=== PATIENT | female | born 1945 | race Caucasian/White ===

== ENCOUNTER 2017-05-17 12:55 | Inpatient (IN) | payer MEDICARE, BC ==
[~2017-05-17] VITALS: Ht 157.5 cm; Wt 55.0 kg
[~2017-05-17 12:55] MED LIST: ASPI81TA82 PO; BUSP5TAB3 PO; CELE200; CENTTAB9 PO; COLE625 PO; DULO20 PO; HYDR10TA16 PO; LEVO50TA4 PO; PLAV75TA PO; PROV100T3 PO; VITA400C59 CHEW; ZOCO40TA PO
[2017-05-17 13:12] VITALS: BP 141/67; PULSE 65; RESP 24; TEMP 97.8; O2SAT 100
--- NOTE | 2017-05-17 13:25 | PD ---
HPI Chief Complaint: Fall Time Seen by Provider: 13:21 Travel History International Travel<30 days: No Contact w/Intl Traveler<30days: No Traveled to known affect area: No History of Present Illness HPI 71-year-old female that presents to the ED for evaluation of fall. Per report from ED nurse as well as ambulance patient apparently had a fall yesterday on the toilet. Per patient she's been having diarrhea which has been a recurrent problem for the past couple of weeks. Per patient she was doing better but yesterday she started having the symptoms again. Per patient she fell from the toilet. She did not hit her head but did hit her right ribs. Per patient's report and ambulance report she crawled today and he took her 12 hours to get there so she can call the police or ambulance. She apparently is taking care of by her daughter but unfortunately from the reported the daughter was recently put in [place] [facility] and she has no one to take care of her. Per ambulance report she told him that she couldn't walk but apparently per ambulance report she go to the door and answered the door herself in no apparent distress. She states that the only pain she has is on the right ribs. Pain per patient is 7 out of 10. Does not radiate. Denies any back or neck pain. No headache. Denies losing consciousness. Denies taking any blood thinners. Patient does state that she still has the diarrhea. Per patient she was recently admitted to [facility] and was there for a week for the diarrhea. She denies any other medical issues. PFSH Past Medical History Autoimmune Disease: Yes (LUPUS) Anxiety: Yes Depression: Yes Cancer: Yes (SKIN) Cardiovascular Problems: Yes (CAD CARDIAC STENT) High Cholesterol: Yes Diabetes: No Diminished Hearing: No Endocrine: No Fibromyalgia: Yes Gastrointestinal Disorders: Yes (IRRITABLE BOWEL) GERD: Yes Genitourinary: No Headaches: Yes Hepatitis: Yes Hiatal Hernia: No Hypertension: Yes Immune Disorder: Yes (? LUPUS) Medical other: Yes (PAD, OPEN WOUND ON LEFT ANKLE) Musculoskeletal: Yes (DEGENERATIVE DISC DISEASE LUMBAR, CERVICAL STENOSIS) Neurologic: Yes (STROKE 2 YEARS AGO) Psychiatric: Yes (ANXIETY/DEPRESSION) Reproductive: No Respiratory: No Thyroid Disease: Yes Tetanus Vaccination: > 5 Years Influenza Vaccination: No Past Surgical History Abdominal Surgery: Yes (APPY) Appendectomy: Yes Body Medical Devices: CARDIAC STENT Cardiac Surgery: No Ear Surgery: No Endocrine Surgery: No Eye Surgery: Yes (CATARACT BLETRAN, CORNEA TRANSPLANTS BELTRAN) Genitourinary Surgery: Yes (CYSTECTOMY, HYSTERECTOMY) Hysterectomy: Yes Joint Replacement: No Oral Surgery: Yes (TONSILLECTOMY) Pacemaker: No Thoracic Surgery: No Tonsillectomy: Yes Social History Alcohol Use: No Tobacco Use: Yes (1PPD) Substance Use: No Allergies-Medications (Allergen,Severity, Reaction): Coded Allergies: diatrizoate meglumine (Unverified Adverse Reaction, Unknown, KIDNEY FUNCTION CHANGES, 05/17/17) gadobenic acid (Unverified Adverse Reaction, Unknown, KIDNEY FUNCTION CHANGES, 05/17/17) gadodiamide (Unverified Adverse Reaction, Unknown, KIDNEY FUNCTION CHANGES , 05/17/17) gadoteridol (Unverified Adverse Reaction, Unknown, KIDNEY FUNCTION CHANGES , 05/17/17) iodixanol (Unverified Adverse Reaction, Unknown, KIDNEY FUNCTION CHANGES, 05/17/17) iohexol (Unverified Adverse Reaction, Unknown, KIDNEY FUNCTION CHANGES, ) Reported Meds & Prescriptions Reported Meds & Active Scripts Active Review of Systems Except as stated in HPI: all other systems reviewed are Neg Physical Exam Narrative GENERAL: SKIN: Warm and dry. HEAD: Atraumatic. Normocephalic. EYES: Pupils equal and round 4 mms reactive to light and accomodation. No scleral icterus. No injection or drainage. ENT: No nasal bleeding or discharge. Mucous membranes pink and moist. Tongue is midline. No uvula deviation. NECK: Trachea midline. No JVD. CARDIOVASCULAR: Regular rate and rhythm. No murmurs, S3, S4. Does have some reproducible right-sided chest discomfort. RESPIRATORY: No accessory muscle use. Clear to auscultation. Breath sounds equal bilaterally. GASTROINTESTINAL: Abdomen soft, non-tender, nondistended. Hepatic and splenic margins not palpable. MUSCULOSKELETAL: Extremities without clubbing, cyanosis, or edema. No obvious deformities. Full range of motion of the upper and lower extremities bilaterally. 2+ pulses bilaterally. NEUROLOGICAL: Awake and alert. No obvious cranial nerve deficits. Motor grossly within normal limits. Five out of 5 muscle strength in the arms and legs. Normal speech. PSYCHIATRIC: Appropriate mood and affect; insight and judgment normal. Data Data Last Documented VS Vital Signs Date Time Temp Pulse Resp B/P (MAP) Pulse Ox O2 Delivery O2 Flow Rate FiO2 05/17/17 13:41 20 05/17/17 13:12 97.8 65 141/67 (91) 100 Orders Orders Electrocardiogram (05/17/17 13:09) Complete Blood Count With Diff (05/17/17 13:09) Comprehensive Metabolic Panel (05/17/17 13:09) Ckmb (Isoenzyme) Profile (05/17/17 13:09) Troponin I (05/17/17 13:09) Prothrombin Time / Inr (Pt) (05/17/17 13:09) Act Partial Throm Time (Ptt) (05/17/17 13:09) Blood Culture (05/17/17 13:09) Lipase (05/17/17 13:09) Urinalysis - C+S If Indicated (05/17/17 13:09) Cath For Specimen (05/17/17 13:09) Magnesium (Mg) (05/17/17 13:09) Thyroid Stimulating Hormone (05/17/17 13:09) Chest, Single Ap (05/17/17 13:09) Ct Brain W/O Iv Contrast(Rout) (05/17/17 13:09) Iv Access Insert/Monitor (05/17/17 13:09) Ecg Monitoring (05/17/17 13:09) Oximetry (05/17/17 13:09) Drug Screen, Random Urine (05/17/17 13:09) Lactic Acid Sepsis Protocol (05/17/17 13:15) Morphine Inj (Morphine Inj) (05/17/17 13:45) Ondansetron Inj (Zofran Inj) (05/17/17 13:45) Sodium Chlor 0.9% 1000 Ml Inj (Ns 1000 M (05/17/17 14:15) Sodium Chlor 0.9% 1000 Ml Inj (Ns 1000 M (05/17/17 14:01) Urine Culture (05/17/17 14:00) Metronidazole 500 Mg Inj (Flagyl 500 Mg (05/17/17 14:45) Admit Order (Ed Use Only) (05/17/17 15:29) Labs Laboratory Tests Test 05/17/17 13:20 05/17/17 14:00 White Blood Count 9.4 TH/MM3 Red Blood Count 5.35 MIL/MM3 Hemoglobin 12.5 GM/DL Hematocrit 40.6 % Mean Corpuscular Volume 75.9 FL Mean Corpuscular Hemoglobin 23.3 PG Mean Corpuscular Hemoglobin Concent 30.8 % Red Cell Distribution Width 23.4 % Platelet Count 257 TH/MM3 Mean Platelet Volume 7.5 FL Neutrophils (%) (Auto) 77.7 % Lymphocytes (%) (Auto) 9.1 % Monocytes (%) (Auto) 9.0 % Eosinophils (%) (Auto) 3.7 % Basophils (%) (Auto) 0.5 % Neutrophils # (Auto) 7.3 TH/MM3 Lymphocytes # (Auto) 0.9 TH/MM3 Monocytes # (Auto) 0.8 TH/MM3 Eosinophils # (Auto) 0.3 TH/MM3 Basophils # (Auto) 0.0 TH/MM3 CBC Comment DIFF FINAL Differential Comment Prothrombin Time 10.5 SEC Prothromb Time International Ratio 1.0 RATIO Activated Partial Thromboplast Time 24.0 SEC Blood Urea Nitrogen 36 MG/DL Creatinine 2.69 MG/DL Random Glucose 124 MG/DL Total Protein 7.8 GM/DL Albumin 4.0 GM/DL Calcium Level 9.6 MG/DL Magnesium Level 1.9 MG/DL Alkaline Phosphatase 78 U/L Aspartate Amino Transf (AST/SGOT) 16 U/L Alanine Aminotransferase (ALT/SGPT) 18 U/L Total Bilirubin 0.5 MG/DL Sodium Level 136 MEQ/L Potassium Level 5.4 MEQ/L Chloride Level 104 MEQ/L Carbon Dioxide Level 17.0 MEQ/L Anion Gap 15 MEQ/L Estimat Glomerular Filtration Rate 17 ML/MIN Lactic Acid Level 3.0 mmol/L Total Creatine Kinase 54 U/L Troponin I LESS THAN 0.02 NG/ML Lipase 147 U/L Thyroid Stimulating Hormone 3rd Gen 1.850 uIU/ML Urine Color YELLOW Urine Turbidity HAZY Urine pH 5.0 Urine Specific [place] 1.029 Urine Protein TRACE mg/dL Urine Glucose (UA) TRACE mg/dL Urine Ketones 10 mg/dL Urine Occult Blood NEG Urine Nitrite NEG Urine Bilirubin NEG Urine Urobilinogen 2.0 MG/DL Urine Leukocyte Esterase NEG Urine RBC 1 /hpf Urine WBC 1 /hpf Urine Squamous Epithelial Cells <1 /hpf Urine Bacteria RARE /hpf Urine Hyaline Casts 33 /lpf Urine Mucus FEW /lpf Microscopic Urinalysis Comment CATH-CULTURE IND [facility] Medical Decision Making Medical Screen Exam Complete: Yes Emergency Medical Condition: Yes Medical Record Reviewed: Yes Interpretation(s) CBC & BMP Diagram 05/17/17 13:20 Total Protein 7.8, Albumin 4.0, Calcium Level 9.6, Magnesium Level 1.9, Alkaline Phosphatase 78, Aspartate Amino Transf (AST/SGOT) 16, Alanine Aminotransferase (ALT/SGPT) 18, Total Bilirubin 0.5 Troponin and CK-MB negative. UA shows no sign of acute disease. EKG shows sinus rhythm with no sign of acute ischemia or arrhythmia read by me and attending. Last Impressions Head CT 05/17/17 1309 Signed Impressions: Service Date/Time: Wednesday, May 17, 2017 14:48 - CONCLUSION: 1. Senescent changes. 2. Complex right maxillary sinus disease. Right sphenoid sinus disease. 3. No acute intracranial abnormality. Clinton Walter MD Chest X-Ray 05/17/17 1309 Signed Impressions: Service Date/Time: Wednesday, May 17, 2017 13:35 - CONCLUSION: No acute cardiopulmonary abnormality is identified. Rosendo Pleitez MD Differential Diagnosis Fall versus inability take care of self versus chest pain versus ACS versus syncope versus dehydration versus rhabdomyolysis versus sepsis Narrative Course 71-year-old female that presents to the ED for evaluation of fall. Patient was properly examined and was found to have signs and symptoms consistent with fall. Patient apparently cannot take care of self and only caregiver is in [place] [facility]. Labs and imaging were ordered. Labs and imaging showed what appears to be acute kidney injury with lactic acidosis. I was able to get some records from the patient's previous hospitalization in [facility]. Patient's threatening and BUN at the time of release was BUN of 11 and 1.49 creatinine. Patient appears to have acute on chronic kidney disease. Likely from dehydration. Patient was given IV fluids here. Patient was started on Flagyl as per medical records patient has a history of colitis and is to be on prednisone as well as Flagyl for this. Patient states having diarrhea again. Imaging otherwise was unremarkable. Case was discussed in my attending who agrees with admission. Dr. Vines agreed to admission to her. Procedures EKG Prior to Arrival: No Diagnosis Primary Impression: Acute kidney injury Additional Impressions: Elevated lactic acid level Diarrhea Qualified Codes: R19.7 - Diarrhea, unspecified Admitting Information Admitting Physician Requests: Admit Alec Pacheco May 17, 2017 13:25
[2017-05-17 13:37] LABS: AUTOMATED NEUTROPHIL # 7.3 TH/MM3 (1.8-7.7); BASOPHIL % 0.5 % (0.0-2.0); EOSINOPHIL # 0.3 TH/MM3 (0-0.4); EOSINOPHIL % 3.7 % (0.0-4.0); HEMATOCRIT 40.6 % (35.0-46.0); HEMO FLAGS DIFF FINAL; LYMPH % 9.1 % (9.0-44.0); LYMPHOCYTE # 0.9 TH/MM3 (1.0-4.8); MEAN CELL VOLUME 75.9 FL (80.0-100.0); MEAN CORPUSCULAR HEMOGLOBIN 23.3 PG (27.0-34.0); MEAN CORPUSCULAR HGB CONC 30.8 % (32.0-36.0); NEUT % 77.7 % (16.0-70.0); PLATELET COUNT 257 TH/MM3 (150-450); RED BLOOD COUNT 5.35 MIL/MM3 (4.00-5.30); RED CELL DISTRIBUTION WIDTH 23.4 % (11.6-17.2); WHITE BLOOD COUNT 9.4 TH/MM3 (4.0-11.0)
--- NOTE | 2017-05-17 13:42 | RADRPT ---
EXAM DATE/TIME: 05/17/2017 13:35 [facility] COMPARISON: No previous studies available for comparison. INDICATIONS : Pain under right axillary from fall on handlebar. MEDICAL HISTORY : None. SURGICAL HISTORY : None. ENCOUNTER: Initial ACUITY: 1 day PAIN SCORE: 9/10 LOCATION: Right axillary. FINDINGS: Portable AP view of the chest demonstrates a normal-sized cardiac silhouette. No effusion, consolidat ion, or pneumothorax is visualized. Oblique linear opacity in the left upper lobe may represent subse gmental atelectasis or scar. The bones and soft tissues demonstrate no acute abnormality. There are i s a hardware in the left proximal humerus related to prior ORIF. CONCLUSION: No acute cardiopulmonary abnormality is identified. Rosendo Pleitez MD on May 17, 2017 at 13:39 Board Certified Radiologist. This report was verified electronically.
[2017-05-17] MEDS ORDERED: MORPHINE SULFATE 2 MG/ML INJ IV PUSH ONE (13:45)
[2017-05-17] MEDS ORDERED: ONDANSETRON HCL 4 MG/2 ML VIAL IV PUSH ONE (13:45)
[2017-05-17 13:49] LABS: PROTHROMBIN TIME - PATIENT 10.5 SEC (9.8-11.6)
[2017-05-17 13:53] LABS: ALT (GPT) 18 U/L (10-53)
[2017-05-17] MEDS ORDERED: SODIUM CHLOR 0.9% 1000 ML INJ 1,000 ML IV ONE ×2 (14:01→14:15)
[2017-05-17 14:12] LABS: BACTERIA, URINE RARE /hpf; BLOOD, URINE NEG (NEG); COMMENT (UR) CATH-CULTURE IND; CULTURE IF INDICATED CATH CULTURE IND; GLUCOSE,URINE TRACE mg/dL (NEG); HYALINE CAST, URINE 33 /lpf (RARE); KETONE, URINE 10 mg/dL (NEG); MUCUS URINE FEW /lpf (OCC); NITRITE,URINE NEG (NEG); SQUAMOUS EPITHELIAL CELL URINE <1 /hpf (0-5); URINE COLOR YELLOW (YELLW/STRAW)
[2017-05-17 14:30] LABS: ALKALINE PHOSPHATASE 78 U/L (45-117); ANION GAP 15 MEQ/L (5-15); AST (GOT) 16 U/L (15-37); BLOOD UREA NITROGEN 36 MG/DL (7-18); CHLORIDE 104 MEQ/L (98-107); GLOMERULAR FILTRATION RATE 17 ML/MIN (>89); MAGNESIUM 1.9 MG/DL (1.5-2.5); SODIUM (NA) 136 MEQ/L (136-145); TOTAL BILIRUBIN ADULT 0.5 MG/DL (0.2-1.0)
[2017-05-17 14:31] LABS: CREATINE KINASE 54 U/L (26-192); POTASSIUM 5.4 MEQ/L (3.5-5.1)
[2017-05-17] MEDS ORDERED: metroNIDAZOLE 500 MG INJ 100 ML IV ONE (14:45)
--- NOTE | 2017-05-17 15:17 | RADRPT ---
EXAM DATE/TIME: 05/17/2017 14:48 [facility] COMPARISON: No previous studies available for comparison. INDICATIONS : Fall. RADIATION DOSE: 32.37 CTDIvol (mGy) MEDICAL HISTORY : Cardiovascular disease. SURGICAL HISTORY : Hysterectomy. Appendectomy. ENCOUNTER: Initial ACUITY: 1 day PAIN SCALE: 0/10 LOCATION: cranial TECHNIQUE: Multiple contiguous axial images were obtained of the head. Using automated exposure control and adj ustment of the mA and/or kV according to patient size, radiation dose was kept as low as reasonably a chievable to obtain optimal diagnostic quality images. DICOM format image data is available electro nically for review and comparison. FINDINGS: CEREBRUM: Moderate cerebral volume loss. The ventricles are normal for degree of atrophy. No evidence of midli ne shift, mass lesion, hemorrhage or acute infarction. No extra-axial fluid collections are seen. POSTERIOR FOSSA: The cerebellum and brainstem are intact. The 4th ventricle is midline. The cerebellopontine angle i s unremarkable. EXTRACRANIAL: The visualized portion of the orbits is intact. Somewhat dense material in the right maxillary sinus without evidence for wall thickening or erosion. Smaller fluid in the right sphenoid sinus. SKULL: The calvaria is intact. No evidence of skull fracture. CONCLUSION: 1. Senescent changes. 2. Complex right maxillary sinus disease. Right sphenoid sinus disease. 3. No acute intracranial abnormality. Clinton Walter MD on May 17, 2017 at 15:13 Board Certified Radiologist. This report was verified electronically.
[2017-05-17 15:29] LABS: LACTIC ACID GHOST NOT REPORTABLE
[2017-05-17] MEDS ORDERED: NALOXONE HCL 0.4 MG/ML AMP IV PUSH PRN (15:30)
[2017-05-17] MEDS ORDERED: SODIUM CHLORIDE 0.9% FLUSH 10 ML FLUSH IV FLUSH PRN (15:30)
--- NOTE | 2017-05-17 15:30 | HHI.HP ---
[facility] Ram[facility] D.O. Admission Diagnosis acute renal injury, dehydration, diarrhea, fall, inability take care Diagnoses: Travel History International Travel<30 Days: No Contact w/Intl Traveler <30 Da: No Traveled to Known Affected Are: No History of Present Illness still having diarrhea was at for one week , got home about 1 week ago daughter was career center advisor and now she is gone last night should be on steroids tapering dose and has not taken it yesterday after going to bathroom she fell from it, nad was on floor 12 hrs then finally was able to get back to bed did not take meds then called 911 also c/o pain in chest, thinks she hits something when she fell off the toilet ems came to back door and it was open so that they can get through the screen for one week after discharge, no diarrhea- was on medicine sulfasalazine and prednisone only yesterday, the diarrhea started all over again at that time she had rectal bag and lost 2-3L of fecal fluids denies cdiff./ crohns or UC then- was just told it was just colitis gets hot flushes, no fever no vomiting or nausea since one week takes zofran at home though no blood in urien or stool no abdominal no chest pain no dizziness or syncope no pains that is new after the fall does have chronic back pain from spinal stenosis Review of Systems Except as stated in HPI: all other systems reviewed are Neg Past Family Social History Past Medical History hrn cad- stent- 2yrs ago takes plavix 37.5mg by Dr Karly Isaac hepatiits B - pt said it was treated was a heavy drinker at young age, havent drunk in 30yrs hx of UTIs CVA- 3 yrs ago , no residual hypothyroidism Summary of [facility] hospitalization course: April 21, 2017 to April 30, 2017 hospital stay collagenous colitis- at 04/21/17 hospital admission Positive occult blood stool. Negative blood cultures. Patient was treated with IV Flagyl and Cipro. Hemoglobin was 7.6. Status post 1 unit of PRBC. Escherichia coli UTI Past Surgical History coronary angiogram and stenting colonsocpy hysterectomy appendectomy tonsilectomy Allergies: Coded Allergies: diatrizoate meglumine (Unverified Adverse Reaction, Unknown, KIDNEY FUNCTION CHANGES, 05/17/17) gadobenic acid (Unverified Adverse Reaction, Unknown, KIDNEY FUNCTION CHANGES, 05/17/17) gadodiamide (Unverified Adverse Reaction, Unknown, KIDNEY FUNCTION CHANGES , 05/17/17) gadoteridol (Unverified Adverse Reaction, Unknown, KIDNEY FUNCTION CHANGES , 05/17/17) iodixanol (Unverified Adverse Reaction, Unknown, KIDNEY FUNCTION CHANGES, 05/17/17) iohexol (Unverified Adverse Reaction, Unknown, KIDNEY FUNCTION CHANGES, ) Family History mother- kidney failure, [place] sister- lupus brother- rheumatic fever Social History smoke cigarettes about 5 or 6 a day, or a pack a day before that used to drink heavily, quit 30yrs ago no drugs before or now usually lives with daughter, but now daughter is incacerated as of yesterday- Physical Exam Vital Signs Vital Signs Date Time Temp Pulse Resp B/P (MAP) Pulse Ox O2 Delivery O2 Flow Rate FiO2 05/17/17 13:41 20 05/17/17 13:12 97.8 65 24 141/67 (91) 100 Physical Exam GENERAL: This is an elderly lady, looks quite weak and frail. Poor skin turgor. SKIN: No rashes, ecchymoses or lesions. Cool and dry. HEAD: Atraumatic. Normocephalic. No temporal or scalp tenderness. EYES:No scleral icterus. No injection or drainage. ENT: Nose without bleeding, purulent drainage or septal hematoma.Airway patent. NECK: Trachea midline. No JVD CARDIOVASCULAR: Regular rate and rhythm without murmurs, gallops, or rubs. RESPIRATORY: Clear to auscultation. Breath sounds equal bilaterally. No wheezes , rales, or rhonchi. GASTROINTESTINAL: Abdomen soft, non-tender, nondistended. No guarding. MUSCULOSKELETAL: Extremities without clubbing, cyanosis, or edema. . No calf tenderness. NEUROLOGICAL: Awake and alert. Motor and sensory grossly within normal limits Normal speech. Laboratory Laboratory Tests Test 05/17/17 13:20 05/17/17 14:00 White Blood Count 9.4 Red Blood Count 5.35 Hemoglobin 12.5 Hematocrit 40.6 Mean Corpuscular Volume 75.9 Mean Corpuscular Hemoglobin 23.3 Mean Corpuscular Hemoglobin Concent 30.8 Red Cell Distribution Width 23.4 Platelet Count 257 Mean Platelet Volume 7.5 Neutrophils (%) (Auto) 77.7 Lymphocytes (%) (Auto) 9.1 Monocytes (%) (Auto) 9.0 Eosinophils (%) (Auto) 3.7 Basophils (%) (Auto) 0.5 Neutrophils # (Auto) 7.3 Lymphocytes # (Auto) 0.9 Monocytes # (Auto) 0.8 Eosinophils # (Auto) 0.3 Basophils # (Auto) 0.0 CBC Comment DIFF FINAL Differential Comment Prothrombin Time 10.5 Prothromb Time International Ratio 1.0 Activated Partial Thromboplast Time 24.0 Blood Urea Nitrogen 36 Creatinine 2.69 Random Glucose 124 Total Protein 7.8 Albumin 4.0 Calcium Level 9.6 Magnesium Level 1.9 Alkaline Phosphatase 78 Aspartate Amino Transf (AST/SGOT) 16 Alanine Aminotransferase (ALT/SGPT) 18 Total Bilirubin 0.5 Sodium Level 136 Potassium Level 5.4 Chloride Level 104 Carbon Dioxide Level 17.0 Anion Gap 15 Estimat Glomerular Filtration Rate 17 Lactic Acid Level 3.0 Total Creatine Kinase 54 Troponin I LESS THAN 0.02 Lipase 147 Thyroid Stimulating Hormone 3rd Gen 1.850 Urine Color YELLOW Urine Turbidity HAZY Urine pH 5.0 Urine Specific [place] 1.029 Urine Protein TRACE Urine Glucose (UA) TRACE Urine Ketones 10 Urine Occult Blood NEG Urine Nitrite NEG Urine Bilirubin NEG Urine Urobilinogen 2.0 Urine Leukocyte Esterase NEG Urine RBC 1 Urine WBC 1 Urine Squamous Epithelial Cells <1 Urine Bacteria RARE Urine Hyaline Casts 33 Urine Mucus FEW Microscopic Urinalysis Comment CATH-CULTURE IND Date/Time Source Procedure Growth Status 05/17/17 13:20 Blood Peripheral Aerobic Blood Culture Pending Received 05/17/17 13:20 Blood Peripheral Anaerobic Blood Culture Pending Received 05/17/17 14:00 Urine Catheterized Urine Urine Culture Pending Received Result Diagram: 05/17/17 1320 05/17/17 1320 Imaging Last [address] 05/17/17 1309 Signed Impressions: Service Date/Time: Wednesday, May 17, 2017 14:48 - CONCLUSION: 1. Senescent changes. 2. Complex right maxillary sinus disease. Right sphenoid sinus disease. 3. No acute intracranial abnormality. Clinton Walter MD Chest X-Ray 05/17/17 1309 Signed Impressions: Service Date/Time: Wednesday, May 17, 2017 13:35 - CONCLUSION: No acute cardiopulmonary abnormality is identified. MD Maria A Caruso VTE Risk Assessment Maria A VTE Risk Assessment: Mod/High Risk (score >= 2) Caprini Risk Assessment Model Point Value = 1 Point Value = 2 Point Value = 3 Point Value = 5 Age 41-60 Minor surgery BMI > 25 kg/m2 Swollen legs Varicose veins or History of unexplained or recurrent spontaneous Oral contraceptives or hormone replacement Sepsis (< 1 month) Serious lung disease, including pneumonia (< 1 month) Abnormal pulmonary function Acute myocardial infarction Congestive heart failure (< 1 month) History of inflammatory bowel disease Medical patient at bed rest Age 61-74 Arthroscopic surgery Major open surgery (> 45 min) Laparoscopic surgery (> 45 min) Malignancy Confined to bed (> 72 hours) Immobilizing plaster cast Central venous access Age >= 75 History of VTE Family history of VTE Factor V Leiden Prothrombin [id number] Lupus anticoagulant Anticardiolipin antibodies Elevated serum homocysteine Heparin-induced thrombocytopenia Other congenital or acquired thrombophilia Stroke (< 1 month) Elective arthroplasty Hip, pelvis, or leg fracture Acute spinal cord injury (< 1 month) Prophylaxis Regimen Total Risk Factor Score Risk Level Prophylaxis Regimen 0-1 Low Early ambulation 2 Moderate Order ONE of the following: *Sequential Compression Device (SCD) *Heparin 5000 units SQ BID 3-4 Higher Order ONE of the following medications: *Heparin 5000 units SQ TID *Enoxaparin/Lovenox 40 mg SQ daily (WT < 150 kg, CrCl > 30 mL/min) *Enoxaparin/Lovenox 30 mg SQ daily (WT < 150 kg, CrCl > 10-29 mL/min) *Enoxaparin/Lovenox 30 mg SQ BID (WT < 150 kg, CrCl > 30 mL/min) AND/OR *Sequential Compression Device (SCD) 5 or more Highest Order ONE of the following medications: *Heparin 5000 units SQ TID (Preferred with Epidurals) *Enoxaparin/Lovenox 40 mg SQ daily (WT < 150 kg, CrCl > 30 mL/min) *Enoxaparin/Lovenox 30 mg SQ daily (WT < 150 kg, CrCl > 10-29 mL/min) *Enoxaparin/Lovenox 30 mg SQ BID (WT < 150 kg, CrCl > 30 mL/min) AND *Sequential Compression Device (SCD) Assessment and Plan Assessment and Plan Impression: Acute recurring colitis. In face of recently treated collagenous colitis at [facility]. Acute renal failure from dehydration Dehydration from fluid loss Lactic acid acidosis. Likely secondary to dehydration rather than sepsis. Recent Escherichia coli UTI with still positive UA at present. Plan: IV hydration with D5 half normal saline at 100 cc per hour. Start patient back on Solu-Medrol 40 mg IV every 6 hours Resume Cipro and Flagyl IV. Stool studies. GI consult. Sulfasalazine 500 mg by mouth every 8 hours. Orders have been written to update patient's med reconciliation. DVT prophylaxis with heparin. GI prophylaxis on ranitidine. Physician Certification Order for Inpatient Services The services are ordered in accordance with Medicare regulations or non- Medicare payer requirements, as applicable. In the case of services not specified as inpatient-only, they are appropriately provided as inpatient services in accordance with the 2-midnight benchmark. days is the estimated time the patient will need to remain in the hospital, assuming treatment plan goals are met and no additional complications. Duncan Vines MD May 17, 2017 15:30
[2017-05-17] MEDS ORDERED: RANITIDINE HCL SYRUP 150 MG/10 ML UDC PO ONE (16:15)
[2017-05-17] MEDS: DEXT 5%-NACL 0.45% 1000 ML INJ 1,000 ML IV SCH (16:57)
[2017-05-17] MEDS: metroNIDAZOLE 500 MG INJ 100 ML IV SCH ×2 (17:00→23:58)
[2017-05-17] MEDS: methylPREDNISolone SOD SUCC 40 MG/1 ML VIAL IV PUSH SCH ×2 (17:33→23:59)
[2017-05-17] MEDS: CIPROFLOXACIN 400 MG PREMIX 200 ML IV SCH (17:33)
[2017-05-17] MEDS: ACETAMINOPHEN/HYDROcodone 325 MG/5 MG TAB PO PRN ×2 (17:34→22:21)
[2017-05-17] MEDS: sulfaSALAzine EC 500 MG TABEC PO SCH ×2 (17:34→22:22)
[2017-05-17] MEDS: FAMOTIDINE 20 MG TAB PO SCH ×2 (17:34→20:34)
[2017-05-17 17:40] VITALS: BP 108/56; PULSE 83; RESP 16; TEMP 95.6; O2SAT 94
[2017-05-17] MEDS: CHOLESTYRAMINE 4 GM PACKET PO SCH ×2 (18:00→23:59)
[2017-05-17 20:00] VITALS: BP 114/80; PULSE 88; RESP 16; TEMP 97.7; O2SAT 97
[2017-05-17] MEDS: SODIUM CHLORIDE 0.9% FLUSH 10 ML FLUSH IV FLUSH SCH (20:36)
[2017-05-17] MEDS: HEPARIN SODIUM - SQ 10,000 UNITS/ML VIAL SQ SCH (22:19)
[2017-05-18] VITALS (7 sets, daily range): BP systolic 112–175; BP diastolic 53–82; PULSE 65–83; RESP 16–18; TEMP 96.6–98.1; O2SAT 94–100
[2017-05-18] MEDS: DEXT 5%-NACL 0.45% 1000 ML INJ 1,000 ML IV SCH ×3 (03:43→22:05)
[2017-05-18] MEDS: CIPROFLOXACIN 400 MG PREMIX 200 ML IV SCH ×2 (05:54→16:14)
[2017-05-18] MEDS: metroNIDAZOLE 500 MG INJ 100 ML IV SCH ×4 (05:54→22:05)
[2017-05-18] MEDS: CHOLESTYRAMINE 4 GM PACKET PO SCH ×3 (05:56→17:46)
[2017-05-18] MEDS: methylPREDNISolone SOD SUCC 40 MG/1 ML VIAL IV PUSH SCH ×3 (05:57→17:47)
[2017-05-18] MEDS: HEPARIN SODIUM - SQ 10,000 UNITS/ML VIAL SQ SCH ×2 (05:57→14:09)
[2017-05-18] MEDS: sulfaSALAzine EC 500 MG TABEC PO SCH ×3 (05:57→22:00)
[2017-05-18 07:17] LABS: AUTOMATED NEUTROPHIL # 4.5 TH/MM3 (1.8-7.7); EOSINOPHIL % 0.1 % (0.0-4.0); HEMATOCRIT 29.6 % (35.0-46.0); HEMO FLAGS DIFF FINAL; LYMPH % 7.5 % (9.0-44.0); LYMPHOCYTE # 0.4 TH/MM3 (1.0-4.8); MEAN CELL VOLUME 76.4 FL (80.0-100.0); MEAN CORPUSCULAR HEMOGLOBIN 23.5 PG (27.0-34.0); MEAN CORPUSCULAR HGB CONC 30.7 % (32.0-36.0); MONO % 3.3 % (0.0-8.0); NEUT % 89.1 % (16.0-70.0); PLATELET COUNT 133 TH/MM3 (150-450); RED BLOOD COUNT 3.88 MIL/MM3 (4.00-5.30); RED CELL DISTRIBUTION WIDTH 22.4 % (11.6-17.2)
[2017-05-18 07:39] LABS: ALKALINE PHOSPHATASE 58 U/L (45-117); ALT (GPT) 15 U/L (10-53); ANION GAP 8 MEQ/L (5-15); AST (GOT) 12 U/L (15-37); BICARBONATE 17.1 MEQ/L (21.0-32.0); BLOOD UREA NITROGEN 22 MG/DL (7-18); CHLORIDE 114 MEQ/L (98-107); GLOMERULAR FILTRATION RATE 35 ML/MIN (>89); POTASSIUM 5.1 MEQ/L (3.5-5.1); SODIUM (NA) 139 MEQ/L (136-145); TOTAL BILIRUBIN ADULT 0.2 MG/DL (0.2-1.0)
[2017-05-18] MEDS: SODIUM CHLORIDE 0.9% FLUSH 10 ML FLUSH IV FLUSH SCH ×2 (08:54→16:16)
[2017-05-18] MEDS: FAMOTIDINE 20 MG TAB PO SCH ×2 (08:54→22:09)
[2017-05-18] MEDS: ACETAMINOPHEN/HYDROcodone 325 MG/5 MG TAB PO PRN ×2 (08:57→17:56)
--- NOTE | 2017-05-18 09:03 | HHI.PR ---
Subjective Remarks Follow-up colitis, acute kidney injury, dehydration. The patient is reporting right-sided chest pain, worse with movement and deep breaths. She believes that she bruised her chest when she fell. No shortness of breath. No diarrhea since . Objective Vitals Vital Signs Date Time Temp Pulse Resp B/P (MAP) Pulse Ox O2 Delivery O2 Flow Rate FiO2 05/18/17 08:00 97.3 83 17 137/64 (88) 99 05/18/17 04:00 98.0 81 17 119/72 (88) 97 05/18/17 00:00 98.1 80 16 112/53 (72) 97 05/17/17 20:00 97.7 88 16 114/80 (91) 97 05/17/17 18:34 18 05/17/17 17:40 95.6 83 16 108/56 (73) 94 05/17/17 13:41 20 05/17/17 13:12 97.8 65 24 141/67 (91) 100 I/O 05/17/17 05/17/17 05/17/17 05/18/17 05/18/17 05/18/17 07:00 15:00 23:00 07:00 15:00 23:00 Intake Total 3309 ml 1500 ml Balance 3309 ml 1500 ml Intake Oral 480 ml 300 ml IV Total 2829 ml 1200 ml # Voids 1 Result Diagram: 05/18/17 0512 05/18/17 0512 Imaging Last Impressions Head CT 05/17/17 1309 Signed Impressions: Service Date/Time: Wednesday, May 17, 2017 14:48 - CONCLUSION: 1. Senescent changes. 2. Complex right maxillary sinus disease. Right sphenoid sinus disease. 3. No acute intracranial abnormality. Clinton Walter MD Chest X-Ray 05/17/17 1309 Signed Impressions: Service Date/Time: Wednesday, May 17, 2017 13:35 - CONCLUSION: No acute cardiopulmonary abnormality is identified. Rosendo Pleitez MD Objective Remarks General: Frail elderly female in no acute distress. Heart: Regular rate and rhythm. No murmur. Lungs: Clear to auscultation bilaterally. No wheezes, rales, or rhonchi. Breathing is nonlabored. Abdomen: Soft, nontender, nondistended. Positive bowel sounds. Extremities: No lower extremity edema. Psych: Alert and oriented. Procedures none Urinary Catheter: No Vascular Central Line Catheter: No A/P Assessment and Plan 1. Recurrent colitis: Patient recently treated for collagenous colitis [facility]. GI consult is pending. Continue Cipro, Flagyl. Diarrhea has improved. Continue sulfasalazine. 2. Acute renal failure, dehydration: Improving. Continue IV fluids. Monitor BUN and creatinine. 3. Lactic acidosis: Resolved. Likely secondary to dehydration. 4. UTI: Patient recently was diagnosed with a UTI secondary to Escherichia coli. Urinalysis is abnormal. Continue antibiotics. 5. Hypothyroidism: Restart patient's Synthroid. 6. Anxiety/depression: Restart Cymbalta. 7. GI prophylaxis: Ranitidine. 8. DVT prophylaxis: Heparin. 9. Anemia: Hemoglobin decreased possibly secondary to dilutional effect from IV fluids. Check stool Hemoccult. Monitor H&H. Isaac Spann MD May 18, 2017 09:03
[2017-05-18 10:17] LABS: HEMATOCRIT 33.9 % (35.0-46.0); REVIEW FLAG FINAL
--- NOTE | 2017-05-18 12:07 | EKG ---
Date Performed: 05/17/2017 Time Performed: 14:00:25 PTAGE: 71 years EKG: Right bundle branch block Atrial abnormality Compared to previous tracing, atrial abnormali ty is new, otherwise no significant change. BORDERLINE ECG PREVIOUS TRACING : 10/20/2015 07.59 DOCTOR: Callum Keating Interpretating Date/Time 05/18/2017 12:06:36
[2017-05-18] MEDS ORDERED: ONDANSETRON HCL 4 MG/2 ML VIAL IV PUSH PRN (14:15)
[2017-05-18] MEDS ORDERED: PILL SPLITTER OTHER PRN (14:45)
--- NOTE | 2017-05-18 15:21 | PD.CONS ---
HPI History of Present Illness This is a 71 year old female who presented to the ED by EMS after she called 911 after falling in bathroom and being stuck on the floor for 12 hours. She was going to the bathroom when she fell. She made it back to her bed after about 12 hours and then called 911. Patient was recently hospitalized at [facility] and was discharged about a week ago. She had Colonoscopy while at [facility] and was diagnosed with collagenous colitis, recurrent. She was put on steroid taper and Sulfasalazine. Patient reports she was not having diarrhea, until yesterday when the diarrhea started again. Reports C diff was negative at last hospitalization. Denies history of colitis. States she has had 2 other colonoscopies in the past and they showed polyps, otherwise normal. However, patient does report history of irritable bowel and states her primary care provider gives her a oral medication tablet that she takes as needed when she is having diarrhea. (Shaina Middleton) PFSH Past Medical History Hypertension CAD, stent 2 years ago Hepatitis B, s/p treatment per patient History of UTIs CVA, 3 years ago, no residual Hypothyroidism Summary of [facility] hospitalization course: April 21, 2017 to April 30, 2017 hospital stay Collagenous colitis- at 04/21/17 hospital admission Positive occult blood stool. Negative blood cultures. Patient was treated with IV Flagyl and Cipro. Hemoglobin was 7.6. Status post 1 unit of PRBC. Escherichia coli UTI Past Surgical History Coronary angiogram and stenting Colonoscopy Hysterectomy Appendectomy Tonsillectomy (Shaina Middleton) Coded Allergies: diatrizoate meglumine (Unverified Adverse Reaction, Unknown, KIDNEY FUNCTION CHANGES, 05/17/17) gadobenic acid (Unverified Adverse Reaction, Unknown, KIDNEY FUNCTION CHANGES, 05/17/17) gadodiamide (Unverified Adverse Reaction, Unknown, KIDNEY FUNCTION CHANGES , 05/17/17) gadoteridol (Unverified Adverse Reaction, Unknown, KIDNEY FUNCTION CHANGES , 05/17/17) iodixanol (Unverified Adverse Reaction, Unknown, KIDNEY FUNCTION CHANGES, 05/17/17) iohexol (Unverified Adverse Reaction, Unknown, KIDNEY FUNCTION CHANGES, ) Medications Current Medications Medications (Trade) Dose Ordered Sig/Hira Route PRN Reason Start Time Stop Time Status Last Admin Dose Admin Sodium Chloride (NS Flush) 2 ml UNSCH PRN IV FLUSH FLUSH AFTER USING IV ACCESS 05/17/17 15:30 Sodium Chloride (NS Flush) 2 ml BID IV FLUSH 05/17/17 21:00 05/18/17 08:54 Naloxone HCl (Narcan Inj) 0.4 mg UNSCH PRN IV PUSH SEE LABEL COMMENTS 05/17/17 15:30 Cholestyramine Resin (Questran 4 Gm Pkt) 4 gm Q6HR PO 05/17/17 18:00 05/18/17 11:12 Sulfasalazine (Azulfidine Ec) 500 mg Q8HR PO 05/17/17 16:15 05/18/17 14:09 Methylprednisolone Sodium Succinate (SoluMEDROL INJ) 40 mg Q6HR IV PUSH 05/17/17 18:00 05/18/17 11:12 Famotidine (Pepcid) 10 mg Q12HR PO 05/17/17 16:30 05/18/17 08:54 Dextrose/Sodium Chloride 1,000 ml @ 100 mls/hr Q10H IV 05/17/17 16:30 05/18/17 14:10 Ciprofloxacin/ Dextrose 200 ml @ 200 mls/hr Q12H IV 05/17/17 17:00 05/18/17 05:54 Metronidazole 100 ml @ 100 mls/hr Q6H IV 05/17/17 17:00 05/18/17 11:12 Heparin Sodium (Porcine) (Heparin Inj) 5,000 units Q8HR SQ 05/17/17 22:00 05/18/17 14:09 Duloxetine HCl (Cymbalta Dr) 60 mg BID PO 05/18/17 14:15 Clopidogrel Bisulfate (Plavix) 37.5 mg DAILY PO 05/19/17 09:00 Levothyroxine Sodium (Synthroid) 50 mcg DAILY@0600 PO 05/19/17 06:00 Pravastatin Sodium (Pravachol) 20 mg HS PO 05/18/17 21:00 Ondansetron HCl (Zofran Inj) 4 mg Q8HR PRN IV PUSH NAUSEA OR VOMITING 05/18/17 14:15 Aspirin (Ecotrin Ec) 81 mg DAILY PO 05/19/17 09:00 Acetaminophen/ Hydrocodone Bitart (Bucyrus 5-325 Mg) 1 tab Q4H PRN PO PAIN SCALE 4 TO 10 05/18/17 14:15 Miscellaneous (Pill Splitter) 1 ea UNSCH PRN OTHER SEE LABEL COMMENTS 05/18/17 14:45 Family History Mother, kidney failure, [place] Sister, lupus Brother, rheumatic fever Social History Tobacco, smokes cigarettes about 5-6 a day ETOH, history of heavy alcohol use, quit 30 years ago Illicit Drugs, denies (Shaina Middleton) Review of Systems Gastrointestinal: COMPLAINS OF: Abdominal pain, Diarrhea, Nausea, Vomiting, DENIES: Black stools, Bloody stools, Constipation, Difficulty Swallowing, Anorexia, Odynophagia, Swelling of Abdomen, Heartburn, Hematemesis (Shaina Middleton) GI Exam Vitals I&O Vital Signs Date Time Temp Pulse Resp B/P (MAP) Pulse Ox O2 Delivery O2 Flow Rate FiO2 05/18/17 12:00 97.3 77 17 151/68 (95) 94 05/18/17 12:00 96.6 65 18 141/82 (101) 100 05/18/17 08:00 97.3 83 17 137/64 (88) 99 05/18/17 04:00 98.0 81 17 119/72 (88) 97 05/18/17 00:00 98.1 80 16 112/53 (72) 97 05/17/17 20:00 97.7 88 16 114/80 (91) 97 05/17/17 18:34 18 05/17/17 17:40 95.6 83 16 108/56 (73) 94 I/O 05/17/17 05/17/17 05/17/17 05/18/17 05/18/17 05/18/17 07:00 15:00 23:00 07:00 15:00 23:00 Intake Total 3309 ml 1500 ml 620 ml Balance 3309 ml 1500 ml 620 ml Intake Oral 480 ml 300 ml 420 ml IV Total 2829 ml 1200 ml 200 ml # Voids 1 4 # Bowel Movements 0 Laboratory Test 05/17/17 16:50 05/18/17 05:12 05/18/17 10:00 Lactic Acid Level 1.9 mmol/L White Blood Count 5.0 TH/MM3 Red Blood Count 3.88 MIL/MM3 Hemoglobin 9.1 GM/DL 10.1 GM/DL Hematocrit 29.6 % 33.9 % Mean Corpuscular Volume 76.4 FL Mean Corpuscular Hemoglobin 23.5 PG Mean Corpuscular Hemoglobin Concent 30.7 % Red Cell Distribution Width 22.4 % Platelet Count 133 TH/MM3 Mean Platelet Volume 7.6 FL Neutrophils (%) (Auto) 89.1 % Lymphocytes (%) (Auto) 7.5 % Monocytes (%) (Auto) 3.3 % Eosinophils (%) (Auto) 0.1 % Basophils (%) (Auto) 0.0 % Neutrophils # (Auto) 4.5 TH/MM3 Lymphocytes # (Auto) 0.4 TH/MM3 Monocytes # (Auto) 0.2 TH/MM3 Eosinophils # (Auto) 0.0 TH/MM3 Basophils # (Auto) 0.0 TH/MM3 CBC Comment DIFF FINAL Differential Comment Blood Urea Nitrogen 22 MG/DL Creatinine 1.46 MG/DL Random Glucose 154 MG/DL Total Protein 5.6 GM/DL Albumin 2.8 GM/DL Calcium Level 8.4 MG/DL Alkaline Phosphatase 58 U/L Aspartate Amino Transf (AST/SGOT) 12 U/L Alanine Aminotransferase (ALT/SGPT) 15 U/L Total Bilirubin 0.2 MG/DL Sodium Level 139 MEQ/L Potassium Level 5.1 MEQ/L Chloride Level 114 MEQ/L Carbon Dioxide Level 17.1 MEQ/L Anion Gap 8 MEQ/L Estimat Glomerular Filtration Rate 35 ML/MIN Date/Time Source Procedure Growth Status 05/17/17 13:20 Blood Peripheral Aerobic Blood Culture - Preliminary NO GROWTH IN 1 DAY Resulted 05/17/17 13:20 Blood Peripheral Anaerobic Blood Culture - Preliminary NO GROWTH IN 1 DAY Resulted 05/17/17 14:00 Urine Catheterized Urine Urine Culture - Preliminary NO GROWTH IN 24 HOURS. Resulted Physical Examination HEENT: Pupils round and reactive to light; normocephalic; atraumatic; no jaundice. Throat is clear. NECK: Neck is supple, no JVD, no lymphadenopathy. CHEST: Chest is clear to auscultation and percussion. CARDIAC: Regular rate and rhythm with no murmur gallop or rubs. ABDOMEN: Soft, nondistended, nontender; no hepatosplenomegaly; bowel sounds are present in all four quadrants. EXTREMITIES: No clubbing, cyanosis, or edema. SKIN: Normal; no rash; no jaundice. VEHICLE TECHNICIAN: No focal deficits; alert and oriented times three. (Shaina Middleton) Assessment and Plan Plan ASSESSMENT - Collagenous Colitis, recurrent. Recent hospitalization at [facility] with Colonoscopy. Patient was discharged with steroid taper and Sulfasalazine. Reports diarrhea was improving with medicine and then the day before presenting to ED she started having increased diarrhea again. Had fall in the bathroom, while using toilet and was stuck on floor x 12 hours; then was able to get back to her bed where she called 911. Has had Colonoscopies in the past (x2) and reports these showed polyps and otherwise normal. Does have history of diarrhea and states her PCP gives her a medication for this to take as needed. No blood noted in stool. Has diffuse abdominal pain. Stool cultures ordered. - Nausea/vomiting. Decreased appetite. - Anemia. 10.1/33.9. Zofran PLAN - CATE - Continue Solu-Medrol - Continue Sulfasalazine - Await stool studies - Continue Zofran as needed - Monitor labs - Supportive care - Further recommendations to follow based on results of above Patient seen and examined by Dr. Robbins and myself and this note is written on his behalf. (Shaina Middleton) Physician Comments Seen and examined, plan as above. Will follow up with you. (Kayli Robbins MD) Shaina Middleton May 18, 2017 15:21 Kayli Robbins MD May 18, 2017 23:12
[2017-05-18] MEDS: DULoxetine HCl DR 60 MG CAP PO SCH ×2 (16:12→22:08)
[2017-05-18] MEDS: PRAVASTATIN SOD 20 MG TAB PO SCH (22:08)
[2017-05-19] VITALS (8 sets, daily range): BP systolic 136–175; BP diastolic 64–93; PULSE 66–84; RESP 16–17; TEMP 96.8–98.3; O2SAT 95–96
[2017-05-19] MEDS ORDERED: cloNIDine HCL 0.1 MG TAB PO ONE (04:30)
[2017-05-19] MEDS: metroNIDAZOLE 500 MG INJ 100 ML IV SCH ×4 (05:14→23:27)
[2017-05-19] MEDS: CIPROFLOXACIN 400 MG PREMIX 200 ML IV SCH ×2 (05:14→17:48)
[2017-05-19] MEDS: methylPREDNISolone SOD SUCC 40 MG/1 ML VIAL IV PUSH SCH ×5 (05:15→23:24)
[2017-05-19] MEDS: CHOLESTYRAMINE 4 GM PACKET PO SCH ×5 (05:16→23:24)
[2017-05-19] MEDS: LEVOTHYROXINE SODIUM 50 MCG TAB PO SCH (05:17)
[2017-05-19] MEDS: ACETAMINOPHEN/HYDROcodone 325 MG/5 MG TAB PO PRN ×3 (05:34→23:25)
[2017-05-19] MEDS: sulfaSALAzine EC 500 MG TABEC PO SCH ×3 (07:35→22:00)
[2017-05-19 08:21] LABS: C. DIFF EPI 027 PRESUMPTIVE NEGATIVE (NEGATIVE)
[2017-05-19] MEDS: SODIUM CHLORIDE 0.9% FLUSH 10 ML FLUSH IV FLUSH SCH ×2 (09:45→21:00)
[2017-05-19] MEDS: ASPIRIN EC 81 MG TABEC PO SCH (09:46)
[2017-05-19] MEDS: FAMOTIDINE 20 MG TAB PO SCH ×2 (09:46→23:27)
[2017-05-19] MEDS: CLOPIDOGREL 75 MG TAB PO SCH (09:46)
[2017-05-19] MEDS: DULoxetine HCl DR 60 MG CAP PO SCH ×2 (09:46→23:28)
[2017-05-19] MEDS: DEXT 5%-NACL 0.45% 1000 ML INJ 1,000 ML IV SCH ×2 (09:47→15:59)
[2017-05-19 10:41] LABS: AUTOMATED NEUTROPHIL # 6.6 TH/MM3 (1.8-7.7); BASOPHIL % 0.1 % (0.0-2.0); HEMATOCRIT 32.6 % (35.0-46.0); HEMO FLAGS DIFF FINAL; LYMPHOCYTE # 0.7 TH/MM3 (1.0-4.8); MEAN CELL VOLUME 76.2 FL (80.0-100.0); MEAN CORPUSCULAR HEMOGLOBIN 23.2 PG (27.0-34.0); MEAN CORPUSCULAR HGB CONC 30.5 % (32.0-36.0); NEUT % 86.9 % (16.0-70.0); PLATELET COUNT 140 TH/MM3 (150-450); RED BLOOD COUNT 4.29 MIL/MM3 (4.00-5.30); RED CELL DISTRIBUTION WIDTH 21.7 % (11.6-17.2); WHITE BLOOD COUNT 7.5 TH/MM3 (4.0-11.0)
[2017-05-19 11:13] LABS: BICARBONATE 21.1 MEQ/L (21.0-32.0); POTASSIUM 5.4 MEQ/L (3.5-5.1)
--- NOTE | 2017-05-19 13:50 | HHI.PR ---
Subjective Remarks Follow-up colitis. Patient states that she has had 2 loose stools during this hospitalization. No normal bowel movements. No nausea or vomiting today. Denies chest pain or dyspnea. Objective Vitals Vital Signs Date Time Temp Pulse Resp B/P (MAP) Pulse Ox O2 Delivery O2 Flow Rate FiO2 05/19/17 12:00 98.3 73 17 145/64 (91) 96 05/19/17 08:08 72 05/19/17 08:00 97.0 75 17 147/66 (93) 95 05/19/17 04:26 98.2 84 16 174/77 (109) 96 05/19/17 00:20 97.9 74 16 175/93 (120) 96 05/18/17 20:35 97.6 74 16 175/73 (107) 96 05/18/17 16:00 97.3 80 17 154/69 (97) 96 I/O 05/18/17 05/18/17 05/18/17 05/19/17 05/19/17 05/19/17 07:00 15:00 23:00 07:00 15:00 23:00 Intake Total 1500 ml 620 ml 1673 ml 120 ml Balance 1500 ml 620 ml 1673 ml 120 ml Intake Oral 300 ml 420 ml 240 ml 120 ml IV Total 1200 ml 200 ml 1433 ml # Voids 1 4 2 2 # Bowel Movements 0 0 0 Result Diagram: 05/19/17 1009 05/19/17 1009 Imaging Last Impressions Head CT 05/17/17 1309 Signed Impressions: Service Date/Time: Wednesday, May 17, 2017 14:48 - CONCLUSION: 1. Senescent changes. 2. Complex right maxillary sinus disease. Right sphenoid sinus disease. 3. No acute intracranial abnormality. Clinton Walter MD Chest X-Ray 05/17/17 1309 Signed Impressions: Service Date/Time: Wednesday, May 17, 2017 13:35 - CONCLUSION: No acute cardiopulmonary abnormality is identified. Rosendo Pleitez MD Objective Remarks General: Frail elderly female in no acute distress. Heart: Regular rate and rhythm. No murmur. Lungs: Clear to auscultation bilaterally. No wheezes, rales, or rhonchi. Breathing is nonlabored. Abdomen: Soft, nontender, nondistended. Positive bowel sounds. Extremities: No lower extremity edema. Psych: Alert and oriented. Skin: Multiple areas of ecchymosis on extremities. Small skin tear on left forearm bandaged. Procedures none Urinary Catheter: No Vascular Central Line Catheter: No A/P Assessment and Plan 1. Recurrent colitis: Patient recently treated for collagenous colitis [facility]. Appreciate GI recommendations. Continue Cipro, Flagyl. Diarrhea has improved. Continue sulfasalazine, Solu-Medrol. Stool studies ordered. 2. Acute renal failure, dehydration: Improving. Continue IV fluids. Monitor BUN and creatinine. 3. Lactic acidosis: Resolved. Likely secondary to dehydration. 4. UTI: Patient recently was diagnosed with a UTI secondary to Escherichia coli. Urine culture is negative. 5. Hypothyroidism: Continue Synthroid. 6. Anxiety/depression: Continue Cymbalta. 7. GI prophylaxis: Ranitidine. 8. DVT prophylaxis: Heparin. 9. Anemia: Hemoglobin decreased possibly secondary to dilutional effect from IV fluids. Stool Hemoccult negative. H&H remaining stable. Isaac Spann MD May 19, 2017 13:50
[2017-05-19] MEDS: PRAVASTATIN SOD 20 MG TAB PO SCH (23:28)
[2017-05-20 00:12] VITALS: BP 143/64; PULSE 69; RESP 17; TEMP 97.1; O2SAT 96
[2017-05-20 04:16] VITALS: BP 142/60; PULSE 65; RESP 17; TEMP 96.8; O2SAT 96
[2017-05-20] MEDS: DEXT 5%-NACL 0.45% 1000 ML INJ 1,000 ML IV SCH (04:30)
[2017-05-20] MEDS: metroNIDAZOLE 500 MG INJ 100 ML IV SCH ×4 (05:00→22:54)
[2017-05-20] MEDS: CIPROFLOXACIN 400 MG PREMIX 200 ML IV SCH ×2 (05:00→18:21)
[2017-05-20] MEDS: LEVOTHYROXINE SODIUM 50 MCG TAB PO SCH (05:51)
[2017-05-20] MEDS: ACETAMINOPHEN/HYDROcodone 325 MG/5 MG TAB PO PRN ×3 (05:52→20:17)
[2017-05-20] MEDS: methylPREDNISolone SOD SUCC 40 MG/1 ML VIAL IV PUSH SCH ×2 (05:52→18:22)
[2017-05-20] MEDS: sulfaSALAzine EC 500 MG TABEC PO SCH ×3 (05:54→22:51)
[2017-05-20] MEDS: CHOLESTYRAMINE 4 GM PACKET PO SCH ×3 (05:58→18:00)
[2017-05-20 06:46] LABS: BICARBONATE 21.8 MEQ/L (21.0-32.0); POTASSIUM 5.6 MEQ/L (3.5-5.1)
[2017-05-20 06:51] LABS: AUTOMATED NEUTROPHIL # 7.7 TH/MM3 (1.8-7.7); BASOPHIL % 0.1 % (0.0-2.0); HEMATOCRIT 33.7 % (35.0-46.0); HEMO FLAGS DIFF FINAL; LYMPH % 9.5 % (9.0-44.0); LYMPHOCYTE # 0.9 TH/MM3 (1.0-4.8); MEAN CELL VOLUME 75.5 FL (80.0-100.0); MEAN CORPUSCULAR HEMOGLOBIN 22.7 PG (27.0-34.0); MEAN CORPUSCULAR HGB CONC 30.1 % (32.0-36.0); MONO % 4.5 % (0.0-8.0); NEUT % 85.9 % (16.0-70.0); PLATELET COUNT 159 TH/MM3 (150-450); RED BLOOD COUNT 4.46 MIL/MM3 (4.00-5.30); RED CELL DISTRIBUTION WIDTH 22.3 % (11.6-17.2)
[2017-05-20 08:00] VITALS: BP 161/79; PULSE 70; RESP 20; TEMP 98.5; O2SAT 97
[2017-05-20] MEDS: ASPIRIN EC 81 MG TABEC PO SCH (08:24)
[2017-05-20] MEDS: DULoxetine HCl DR 60 MG CAP PO SCH ×2 (08:24→20:15)
[2017-05-20] MEDS: FAMOTIDINE 20 MG TAB PO SCH ×2 (08:24→20:15)
[2017-05-20] MEDS: CLOPIDOGREL 75 MG TAB PO SCH (08:24)
[2017-05-20] MEDS: SODIUM CHLOR 0.9% 1000 ML INJ 1,000 ML IV SCH ×2 (08:54→22:55)
[2017-05-20] MEDS: SODIUM CHLORIDE 0.9% FLUSH 10 ML FLUSH IV FLUSH SCH ×2 (08:54→20:18)
--- NOTE | 2017-05-20 09:05 | HHI.GIFU ---
Subjective Remarks Resting in bed, eating an mongolian muffin. States she was feeling sick to her stomach earlier, but that it has subsided and she is tolerating her breakfast. She is now having one bowel movement per day. (Kylah Saenz) Objective Vitals I&O Vital Signs Date Time Temp Pulse Resp B/P (MAP) Pulse Ox O2 Delivery O2 Flow Rate FiO2 05/20/17 08:00 98.5 70 20 161/79 (106) 97 05/20/17 04:16 96.8 65 17 142/60 (87) 96 05/20/17 00:12 97.1 69 17 143/64 (90) 96 05/19/17 20:12 96.8 66 17 136/65 (88) 96 05/19/17 17:50 97.1 05/19/17 16:09 74 17 148/69 (95) 95 05/19/17 12:00 98.3 73 17 145/64 (91) 96 I/O 05/19/17 05/19/17 05/19/17 05/20/17 05/20/17 05/20/17 07:00 15:00 23:00 07:00 15:00 23:00 Intake Total 120 ml 480 ml 240 ml 240 ml Balance 120 ml 480 ml 240 ml 240 ml Intake Oral 120 ml 480 ml 240 ml 240 ml # Voids 2 2 2 2 # Bowel Movements 0 1 0 1 Laboratory Laboratory Tests Test 05/19/17 10:09 05/20/17 06:13 White Blood Count 7.5 9.0 Red Blood Count 4.29 4.46 Hemoglobin 10.0 10.1 Hematocrit 32.6 33.7 Mean Corpuscular Volume 76.2 75.5 Mean Corpuscular Hemoglobin 23.2 22.7 Mean Corpuscular Hemoglobin Concent 30.5 30.1 Red Cell Distribution Width 21.7 22.3 Platelet Count 140 159 Mean Platelet Volume 7.1 8.2 Neutrophils (%) (Auto) 86.9 85.9 Lymphocytes (%) (Auto) 9.0 9.5 Monocytes (%) (Auto) 4.0 4.5 Eosinophils (%) (Auto) 0.0 0.0 Basophils (%) (Auto) 0.1 0.1 Neutrophils # (Auto) 6.6 7.7 Lymphocytes # (Auto) 0.7 0.9 Monocytes # (Auto) 0.3 0.4 Eosinophils # (Auto) 0.0 0.0 Basophils # (Auto) 0.0 0.0 CBC Comment DIFF FINAL DIFF FINAL Differential Comment Blood Urea Nitrogen 9 5 Creatinine 1.12 0.99 Random Glucose 192 143 Calcium Level 9.2 9.4 Sodium Level 140 137 Potassium Level 5.4 5.6 Chloride Level 112 108 Carbon Dioxide Level 21.1 21.8 Anion Gap 7 7 Estimat Glomerular Filtration Rate 48 55 Date/Time Source Procedure Growth Status 05/19/17 20:05 Blood Peripheral Aerobic Blood Culture Pending Received 05/19/17 20:05 Blood Peripheral Anaerobic Blood Culture Pending Received 05/19/17 05:30 Stool Stool Stool Occult Blood (NGUYEN) - Final HEMOCCULT NEGATIVE Complete 05/17/17 14:00 Urine Catheterized Urine Urine Culture - Final NO GROWTH IN 48 HOURS. Complete Imaging Last Impressions Head CT 05/17/17 1309 Signed Impressions: Service Date/Time: Wednesday, May 17, 2017 14:48 - CONCLUSION: 1. Senescent changes. 2. Complex right maxillary sinus disease. Right sphenoid sinus disease. 3. No acute intracranial abnormality. Clinton Walter MD Chest X-Ray 05/17/17 1309 Signed Impressions: Service Date/Time: Wednesday, May 17, 2017 13:35 - CONCLUSION: No acute cardiopulmonary abnormality is identified. Rosendo Pleitez MD Physical Exam HEENT: Normocephalic; atraumatic; no jaundice CHEST: CTA CARDIAC: RRR ABDOMEN: Soft, nondistended, mild rlq tenderness; no hepatosplenomegaly; bowel sounds are present in all four quadrants. EXTREMITIES: No clubbing, cyanosis, or edema. SKIN: Normal; no rash; no jaundice. TACK DRILLER: No focal deficits; alert and oriented times three. (Kylah Saenz [facility]) Assessment and Plan Plan ASSESSMENT - Collagenous Colitis, recurrent. Recent hospitalization at [facility] with Colonoscopy. Patient was discharged with steroid taper and Sulfasalazine. Reports diarrhea was improving with medicine and then the day before presenting to ED she started having increased diarrhea again. Had fall in the bathroom, while using toilet and was stuck on floor x 12 hours; then was able to get back to her bed where she called 911. Has had Colonoscopies in the past (x2) and reports these showed polyps and otherwise normal. Stool studies negative for CDiff, Cryptosporidium, giardia. Enteric pathogen cx pending. Solumedrol. Sulfasalazine. Flagyl/Cipro. - Nausea/vomiting. Decreased appetite. Improved. Tolerating breakfast. - Anemia. 10.1/33.7. Zofran PLAN - CATE - Wean Solu-Medrol to q12h - Continue Sulfasalazine - Cont. Flagyl/Cipro until enteric pathogen cx is resulted. If negative, okay to d/c - Continue Zofran as needed - Monitor labs - Supportive care - Further recommendations to follow based on results of above - Patient seen and examined by Dr. Hammonds and myself and this note is written on his behalf. (Kylah Saenz) Physician Comments Patient seen and examined Agree with above Continue with current supportive care Monitor labs Overall the patient appears to be doing better Patient follow-up with GI post discharge (Aldo Hammonds MD) Kylah Saenz May 20, 2017 09:05 Aldo Hammonds MD May 20, 2017 23:29
[2017-05-20 12:00] VITALS: BP 152/70; PULSE 78; RESP 18; TEMP 98; O2SAT 96
--- NOTE | 2017-05-20 15:25 | HHI.PR ---
Subjective Remarks Follow-up colitis, hyperkalemia. The patient has had more loose stools today. She also has been feeling a little nauseous. No vomiting. No dyspnea. She does report pain in the right chest wall where she landed when she fell. Objective Vitals Vital Signs Date Time Temp Pulse Resp B/P (MAP) Pulse Ox O2 Delivery O2 Flow Rate FiO2 05/20/17 12:00 98.0 78 18 152/70 (97) 96 05/20/17 08:00 98.5 70 20 161/79 (106) 97 05/20/17 04:16 96.8 65 17 142/60 (87) 96 05/20/17 00:12 97.1 69 17 143/64 (90) 96 05/19/17 20:12 96.8 66 17 136/65 (88) 96 05/19/17 17:50 97.1 05/19/17 16:09 74 17 148/69 (95) 95 I/O 05/19/17 05/19/17 05/19/17 05/20/17 05/20/17 05/20/17 07:00 15:00 23:00 07:00 15:00 23:00 Intake Total 120 ml 480 ml 240 ml 240 ml Balance 120 ml 480 ml 240 ml 240 ml Intake Oral 120 ml 480 ml 240 ml 240 ml # Voids 2 2 2 2 # Bowel Movements 0 1 0 1 Result Diagram: 05/20/1761205/20/17612 Imaging Last Impressions Head CT 05/17/17 1309 Signed Impressions: Service Date/Time: Wednesday, May 17, 2017 14:48 - CONCLUSION: 1. Senescent changes. 2. Complex right maxillary sinus disease. Right sphenoid sinus disease. 3. No acute intracranial abnormality. Clinton Walter MD Chest X-Ray 05/17/17 1309 Signed Impressions: Service Date/Time: Wednesday, May 17, 2017 13:35 - CONCLUSION: No acute cardiopulmonary abnormality is identified. Rosendo Pleitez MD Objective Remarks General: Frail elderly female in no acute distress. Heart: Regular rate and rhythm. No murmur. Chest wall: Contusion on the lateral right chest wall. Lungs: Clear to auscultation bilaterally. No wheezes, rales, or rhonchi. Breathing is nonlabored. Abdomen: Soft, nontender, nondistended. Positive bowel sounds. Extremities: No lower extremity edema. Psych: Alert and oriented. Skin: Multiple areas of ecchymosis on extremities. Small skin tear on left forearm bandaged. Procedures none Urinary Catheter: No Vascular Central Line Catheter: No A/P Assessment and Plan 1. Recurrent colitis: Patient recently treated for collagenous colitis [facility]. Appreciate GI recommendations. Continue Cipro, Flagyl. Diarrhea has improved. Continue sulfasalazine, Solu-Medrol. C. difficile negative. 2. Acute renal failure, dehydration: Improving. Continue IV fluids. Monitor BUN and creatinine. 3. Lactic acidosis: Resolved. Likely secondary to dehydration. 4. UTI: Patient recently was diagnosed with a UTI secondary to Escherichia coli. Urine culture is negative. 5. Hypothyroidism: Continue Synthroid. 6. Anxiety/depression: Continue Cymbalta. 7. GI prophylaxis: Ranitidine. 8. DVT prophylaxis: Heparin. 9. Anemia: Hemoglobin decreased possibly secondary to dilutional effect from IV fluids. Stool Hemoccult negative. H&H remaining stable. 10. Chest wall pain: Musculoskeletal. Patient fell prior to this admission. She landed on her chest. Continue pain control. Isaac Spann MD May 20, 2017 15:25
[2017-05-20 16:00] VITALS: BP 141/69; PULSE 74; RESP 18; TEMP 96.9; O2SAT 94
[2017-05-20] MEDS: PRAVASTATIN SOD 20 MG TAB PO SCH (20:15)
[2017-05-20 20:21] VITALS: BP 159/81; PULSE 75; RESP 16; TEMP 96.9; O2SAT 96
[2017-05-21] VITALS (7 sets, daily range): BP systolic 143–231; BP diastolic 73–126; PULSE 70–116; RESP 15–16; TEMP 97.4–99.1; O2SAT 96
[2017-05-21] MEDS: CHOLESTYRAMINE 4 GM PACKET PO SCH ×4 (00:16→17:52)
[2017-05-21] MEDS: metroNIDAZOLE 500 MG INJ 100 ML IV SCH (04:44)
[2017-05-21] MEDS: CIPROFLOXACIN 400 MG PREMIX 200 ML IV SCH (05:57)
[2017-05-21] MEDS: methylPREDNISolone SOD SUCC 40 MG/1 ML VIAL IV PUSH SCH ×2 (05:59→17:52)
[2017-05-21] MEDS: LEVOTHYROXINE SODIUM 50 MCG TAB PO SCH (05:59)
[2017-05-21] MEDS: sulfaSALAzine EC 500 MG TABEC PO SCH ×2 (06:00→14:00)
[2017-05-21] MEDS: ACETAMINOPHEN/HYDROcodone 325 MG/5 MG TAB PO PRN ×2 (06:04→14:17)
[2017-05-21 08:28] LABS: AUTOMATED NEUTROPHIL # 4.9 TH/MM3 (1.8-7.7); BASOPHIL % 0.1 % (0.0-2.0); EOSINOPHIL % 0.6 % (0.0-4.0); HEMATOCRIT 31.8 % (35.0-46.0); HEMO FLAGS DIFF FINAL; LYMPH % 12.8 % (9.0-44.0); LYMPHOCYTE # 0.8 TH/MM3 (1.0-4.8); MEAN CELL VOLUME 74.9 FL (80.0-100.0); MEAN CORPUSCULAR HEMOGLOBIN 22.9 PG (27.0-34.0); MEAN CORPUSCULAR HGB CONC 30.6 % (32.0-36.0); NEUT % 79.5 % (16.0-70.0); PLATELET COUNT 112 TH/MM3 (150-450); RED BLOOD COUNT 4.25 MIL/MM3 (4.00-5.30); RED CELL DISTRIBUTION WIDTH 22.2 % (11.6-17.2); WHITE BLOOD COUNT 6.2 TH/MM3 (4.0-11.0)
[2017-05-21 08:40] LABS: BICARBONATE 23.2 MEQ/L (21.0-32.0)
[2017-05-21] MEDS: SODIUM CHLORIDE 0.9% FLUSH 10 ML FLUSH IV FLUSH SCH (09:00)
[2017-05-21] MEDS: CLOPIDOGREL 75 MG TAB PO SCH (09:00)
[2017-05-21] MEDS: ASPIRIN EC 81 MG TABEC PO SCH (09:18)
[2017-05-21] MEDS: FAMOTIDINE 20 MG TAB PO SCH (09:18)
[2017-05-21] MEDS: DULoxetine HCl DR 60 MG CAP PO SCH (09:18)
--- NOTE | 2017-05-21 09:38 | HHI.PR ---
Subjective Remarks Follow-up colitis, hyperkalemia. The patient states that she is feeling better today. She is still quite upset about her family situation at home. Apparently her daughter is in custodial. Abdominal pain has improved. No nausea or vomiting this morning. No diarrhea. Objective Vitals Vital Signs Date Time Temp Pulse Resp B/P (MAP) Pulse Ox O2 Delivery O2 Flow Rate FiO2 05/21/17 07:44 Room Air 05/21/17 04:15 97.6 71 16 155/73 (100) 96 05/21/17 00:17 97.4 70 16 167/74 (105) 96 05/20/17 20:21 96.9 75 16 159/81 (107) 96 05/20/17 16:00 96.9 74 18 141/69 (93) 94 05/20/17 12:00 98.0 78 18 152/70 (97) 96 I/O 05/20/17 05/20/17 05/20/17 05/21/17 05/21/17 05/21/17 07:00 15:00 23:00 07:00 15:00 23:00 Intake Total 240 ml 600 ml 240 ml 240 ml Balance 240 ml 600 ml 240 ml 240 ml Intake Oral 240 ml 600 ml 240 ml 240 ml # Voids 2 3 2 3 # Bowel Movements 1 1 0 0 Result Diagram: 05/21/1743 05/21/1743 Imaging Last Impressions Head CT 05/17/17 1309 Signed Impressions: Service Date/Time: Wednesday, May 17, 2017 14:48 - CONCLUSION: 1. Senescent changes. 2. Complex right maxillary sinus disease. Right sphenoid sinus disease. 3. No acute intracranial abnormality. Clinton Walter MD Chest X-Ray 05/17/17 1309 Signed Impressions: Service Date/Time: Wednesday, May 17, 2017 13:35 - CONCLUSION: No acute cardiopulmonary abnormality is identified. Rosendo Pleitez MD Objective Remarks General: Frail elderly female in no acute distress. Heart: Regular rate and rhythm. No murmur. Chest wall: Contusion on the lateral right chest wall. Lungs: Clear to auscultation bilaterally. No wheezes, rales, or rhonchi. Breathing is nonlabored. Abdomen: Soft, nontender, nondistended. Positive bowel sounds. Extremities: No lower extremity edema. Psych: Alert and oriented. Tearful at times. Skin: Multiple areas of ecchymosis on extremities. Small skin tear on left forearm bandaged. Procedures none Urinary Catheter: No Vascular Central Line Catheter: No A/P Assessment and Plan 1. Recurrent colitis: Patient recently treated for collagenous colitis [facility]. Appreciate GI recommendations. Continue Cipro, Flagyl. Diarrhea has improved. Continue sulfasalazine. Taper steroids. C. difficile negative. 2. Acute renal failure, dehydration: Improving. Continue IV fluids. Monitor BUN and creatinine. 3. Lactic acidosis: Resolved. Likely secondary to dehydration. 4. UTI: Patient recently was diagnosed with a UTI secondary to Escherichia coli. Urine culture is negative. 5. Hypothyroidism: Continue Synthroid. 6. Anxiety/depression: Continue Cymbalta. 7. GI prophylaxis: Ranitidine. 8. DVT prophylaxis: Heparin. 9. Anemia: Hemoglobin decreased possibly secondary to dilutional effect from IV fluids. Stool Hemoccult negative. H&H remaining stable. 10. Chest wall pain: Musculoskeletal. Patient fell prior to this admission. She landed on her chest. Continue pain control. Discharge Planning Plan for discharge to SNF when cleared by GI. Isaac Spann MD May 21, 2017 09:38
[2017-05-21] MEDS ORDERED: LEVO.05 PO (10:02)
[2017-05-21] MEDS ORDERED: SULF500EC PO (10:02)
[2017-05-21] MEDS ORDERED: PLAV75TA29 PO (10:02)
[2017-05-21] MEDS ORDERED: CHOL4POW4 PO (10:02)
[2017-05-21] MEDS ORDERED: PRAV20TA PO (10:02)
[2017-05-21] MEDS ORDERED: FAMO20TA2 PO (10:02)
[2017-05-21] MEDS ORDERED: DULO1CAP3 PO (10:02)
[2017-05-21] MEDS ORDERED: ECASA81 PO (10:02)
[2017-05-21] MEDS ORDERED: ENTO3CAP5 PO (10:02)
--- NOTE | 2017-05-21 11:23 | HHI.GIFU ---
Subjective Remarks Resting in bed. Denies any nausea, vomiting, abdominal pain. States she had 1 scant bowel movement today and had 3-4 episodes of this yesterday. Tearful about being discharged. States that her daughter usually is the one to help her at home and that she is currently incarcerated. (Kylah Saenz) Objective Vitals I&O Vital Signs Date Time Temp Pulse Resp B/P (MAP) Pulse Ox O2 Delivery O2 Flow Rate FiO2 05/21/17 10:35 79 05/21/17 08:00 98.1 71 16 180/94 (122) 96 05/21/17 07:44 Room Air 05/21/17 04:15 97.6 71 16 155/73 (100) 96 05/21/17 00:17 97.4 70 16 167/74 (105) 96 05/20/17 20:21 96.9 75 16 159/81 (107) 96 05/20/17 16:00 96.9 74 18 141/69 (93) 94 05/20/17 12:00 98.0 78 18 152/70 (97) 96 I/O 05/20/17 05/20/17 05/20/17 05/21/17 05/21/17 05/21/17 07:00 15:00 23:00 07:00 15:00 23:00 Intake Total 240 ml 600 ml 240 ml 240 ml Balance 240 ml 600 ml 240 ml 240 ml Intake Oral 240 ml 600 ml 240 ml 240 ml # Voids 2 3 2 3 # Bowel Movements 1 1 0 0 Laboratory Laboratory Tests Test 05/20/17 17:17 05/21/17 07:43 Potassium Level 5.6 5.0 White Blood Count 6.2 Red Blood Count 4.25 Hemoglobin 9.7 Hematocrit 31.8 Mean Corpuscular Volume 74.9 Mean Corpuscular Hemoglobin 22.9 Mean Corpuscular Hemoglobin Concent 30.6 Red Cell Distribution Width 22.2 Platelet Count 112 Mean Platelet Volume 7.0 Neutrophils (%) (Auto) 79.5 Lymphocytes (%) (Auto) 12.8 Monocytes (%) (Auto) 7.0 Eosinophils (%) (Auto) 0.6 Basophils (%) (Auto) 0.1 Neutrophils # (Auto) 4.9 Lymphocytes # (Auto) 0.8 Monocytes # (Auto) 0.4 Eosinophils # (Auto) 0.0 Basophils # (Auto) 0.0 CBC Comment DIFF FINAL Differential Comment Blood Urea Nitrogen 6 Creatinine 0.93 Random Glucose 127 Calcium Level 8.7 Sodium Level 139 Chloride Level 110 Carbon Dioxide Level 23.2 Anion Gap 6 Estimat Glomerular Filtration Rate 59 Date/Time Source Procedure Growth Status 05/19/17 20:05 Blood Peripheral Aerobic Blood Culture - Preliminary NO GROWTH IN 2 DAYS Resulted 05/19/17 20:05 Blood Peripheral Anaerobic Blood Culture - Preliminary NO GROWTH IN 2 DAYS Resulted 05/19/17 05:30 Stool Stool Stool Occult Blood (NGUYEN) - Final HEMOCCULT NEGATIVE Complete 05/17/17 14:00 Urine Catheterized Urine Urine Culture - Final NO GROWTH IN 48 HOURS. Complete Imaging Last Impressions Head CT 05/17/171308 Signed Impressions: Service Date/Time: Wednesday, May 17, 2017 14:48 - CONCLUSION: 1. Senescent changes. 2. Complex right maxillary sinus disease. Right sphenoid sinus disease. 3. No acute intracranial abnormality. Clinton Walter MD Chest X-Ray 05/17/17 3064 Signed Impressions: Service Date/Time: Wednesday, May 17, 2017 13:35 - CONCLUSION: No acute cardiopulmonary abnormality is identified. Rosendo Pleitez MD Physical Exam HEENT: Normocephalic; atraumatic; no jaundice CHEST: CTA CARDIAC: RRR ABDOMEN: Soft, nondistended, nontender; no hepatosplenomegaly; bowel sounds are present in all four quadrants. EXTREMITIES: No clubbing, cyanosis, or edema. SKIN: Normal; no rash; no jaundice. AEROBICS TEACHER: No focal deficits; alert and oriented times three. (Kylah SaenzP) Assessment and Plan Plan ASSESSMENT - Collagenous Colitis, recurrent. Recent hospitalization at [facility] with Colonoscopy. Patient was discharged with steroid taper and Sulfasalazine. Reports diarrhea was improving with medicine and then the day before presenting to ED she started having increased diarrhea again. Had fall in the bathroom, while using toilet and was stuck on floor x 12 hours; then was able to get back to her bed where she called 911. Has had Colonoscopies in the past (x2) and reports these showed polyps and otherwise normal. Stool studies negative for CDiff, Cryptosporidium, giardia. Enteric pathogen negative. Solumedrol. Sulfasalazine. Okay to stop Flagyl/Cipro. One scant bowel movement today. - Nausea/vomiting. Decreased appetite. Improved. Tolerating breakfast. - Anemia. HH 9.7/31.8. Zofran PLAN - CATE - Wean Solu-Medrol to q12h - Continue Sulfasalazine - D/C Flagyl, Cipro - Continue Zofran as needed - Okay to d/c from GI standpoint - Recommend Entocort at discharge, continuing sulfasalazine. FU PHILIPPE 2 weeks. D /W attending - GI will sign off, please reconsult as needed - Patient seen and examined by Dr. Hammonds and myself and this note is written on his behalf. (Kylah Saenz) Physician Comments Patient seen and examined Agree with above Continue with current supportive care Monitor labs Follow-up with GI post discharge (Aldo Hammonds MD) Kylah Saenz May 21, 2017 11:23 Aldo Hammonds MD May 21, 2017 19:05
--- NOTE | 2017-05-21 14:12 | HHI.DCPOC ---
Discharge Care Plan Diagnosis: (1) Diarrhea (2) Acute kidney injury (3) Elevated lactic acid level (4) Lactic acidosis (5) UTI (urinary tract infection) (6) Hypothyroidism (7) Anemia (8) Chest wall pain Goals to Promote Your Health * To prevent worsening of your condition and complications * To maintain your health at the optimal level Directions to Meet Your Goals Take your medications as prescribed Follow your dietary instruction Follow activity as directed Keep your appointments as scheduled Take your immunizations and boosters as scheduled If your symptoms worsen call your PCP, if no PCP go to Urgent Care Center or Emergency Room Smoking is Dangerous to Your Health. Avoid second hand smoke Call the 24-hour hour crisis hotline for domestic abuse at Isaac Spann MD May 21, 2017 14:12
[2017-05-21] MEDS ORDERED: HYDR-3516 PO (14:51)
--- NOTE | 2017-05-21 14:54 | HHI.DS ---
Discharge Summary Admission Date May 17, 2017 at 15:31 Discharge Date: May 21, 2017 Admitting Diagnosis acute renal injury, dehydration, diarrhea, fall, inability take care (1) Chest wall pain ICD Code: R07.89 - Other chest pain (2) UTI (urinary tract infection) ICD Code: N39.0 - Urinary tract infection, site not specified (3) Hypothyroidism ICD Code: E03.9 - Hypothyroidism, unspecified (4) Anemia ICD Code: D64.9 - Anemia, unspecified (5) Lactic acidosis ICD Code: E87.2 - Acidosis (6) Diarrhea ICD Code: R19.7 - Diarrhea, unspecified Status: Acute Procedures none Brief History - From Admission still having diarrhea was at for one week , got home about 1 week ago daughter was vp care management and now she is gone last night should be on steroids tapering dose and has not taken it yesterday after going to bathroom she fell from it, nad was on floor 12 hrs then finally was able to get back to bed did not take meds then called 911 also c/o pain in chest, thinks she hits something when she fell off the toilet ems came to back door and it was open so that they can get through the screen for one week after discharge, no diarrhea- was on medicine sulfasalazine and prednisone only yesterday, the diarrhea started all over again at that time she had rectal bag and lost 2-3L of fecal fluids denies cdiff./ crohns or UC then- was just told it was just colitis gets hot flushes, no fever no vomiting or nausea since one week takes zofran at home though no blood in urien or stool no abdominal no chest pain no dizziness or syncope no pains that is new after the fall does have chronic back pain from spinal stenosis CBC/BMP: 05/21/17 0743 05/21/17 0743 Significant Findings Laboratory Tests Test 05/19/17 05:30 05/19/17 10:09 05/20/17 06:13 05/20/17 17:17 Hemoglobin 10.0 GM/DL (11.6-15.3) 10.1 GM/DL (11.6-15.3) Hematocrit 32.6 % (35.0-46.0) 33.7 % (35.0-46.0) Mean Corpuscular Volume 76.2 FL (80.0-100.0) 75.5 FL (80.0-100.0) Mean Corpuscular Hemoglobin 23.2 PG (27.0-34.0) 22.7 PG (27.0-34.0) Mean Corpuscular Hemoglobin Concent 30.5 % (32.0-36.0) 30.1 % (32.0-36.0) Red Cell Distribution Width 21.7 % (11.6-17.2) 22.3 % (11.6-17.2) Platelet Count 140 TH/MM3 (150-450) Neutrophils (%) (Auto) 86.9 % (16.0-70.0) 85.9 % (16.0-70.0) Lymphocytes # (Auto) 0.7 TH/MM3 (1.0-4.8) 0.9 TH/MM3 (1.0-4.8) Creatinine 1.12 MG/DL (0.50-1.00) Random Glucose 192 MG/DL (74-106) 143 MG/DL (74-106) Potassium Level 5.4 MEQ/L (3.5-5.1) 5.6 MEQ/L (3.5-5.1) 5.6 MEQ/L (3.5-5.1) Chloride Level 112 MEQ/L (98-107) 108 MEQ/L (98-107) Estimat Glomerular Filtration Rate 48 ML/MIN (>89) 55 ML/MIN (>89) Blood Urea Nitrogen 5 MG/DL (7-18) Test 05/21/17 07:43 Hemoglobin 9.7 GM/DL (11.6-15.3) Hematocrit 31.8 % (35.0-46.0) Mean Corpuscular Volume 74.9 FL (80.0-100.0) Mean Corpuscular Hemoglobin 22.9 PG (27.0-34.0) Mean Corpuscular Hemoglobin Concent 30.6 % (32.0-36.0) Red Cell Distribution Width 22.2 % (11.6-17.2) Platelet Count 112 TH/MM3 (150-450) Neutrophils (%) (Auto) 79.5 % (16.0-70.0) Lymphocytes # (Auto) 0.8 TH/MM3 (1.0-4.8) Blood Urea Nitrogen 6 MG/DL (7-18) Random Glucose 127 MG/DL (74-106) Chloride Level 110 MEQ/L (98-107) Estimat Glomerular Filtration Rate 59 ML/MIN (>89) Imaging Last Impressions Head CT 05/17/17 3835 Signed Impressions: Service Date/Time: Wednesday, May 17, 2017 14:48 - CONCLUSION: 1. Senescent changes. 2. Complex right maxillary sinus disease. Right sphenoid sinus disease. 3. No acute intracranial abnormality. Clinton Walter MD Chest X-Ray 05/17/17 8321 Signed Impressions: Service Date/Time: Wednesday, May 17, 2017 13:35 - CONCLUSION: No acute cardiopulmonary abnormality is identified. Rosendo Pleitze MD PE at Discharge General: Frail elderly female in no acute distress. Heart: Regular rate and rhythm. No murmur. Chest wall: Contusion on the lateral right chest wall. Lungs: Clear to auscultation bilaterally. No wheezes, rales, or rhonchi. Breathing is nonlabored. Abdomen: Soft, nontender, nondistended. Positive bowel sounds. Extremities: No lower extremity edema. Psych: Alert and oriented. Tearful at times. Skin: Multiple areas of ecchymosis on extremities. Small skin tear on left forearm bandaged. Hospital Course The patient was admitted for further management of recurrent colitis. She was placed on antibiotics for colitis and UTI. Was started on Solu-Medrol. Gastroenterology was consulted. Diarrhea improved. Stool studies were negative including C. difficile. She was continued on IV fluids for acute renal failure secondary to dehydration. This improved throughout the hospitalization. The patient was cleared for discharge by gastroenterology. She was felt to be stable for discharge to SNF. Pt Condition on Discharge: Stable Discharge Disposition: Discharge to SNF Discharge Time: > 30 minutes Discharge Instructions DIET: Follow Instructions for: As Tolerated, No Restrictions Activities you can perform: Regular-No Restrictions Follow up Referrals: Gastroenterology @ [facility] PCP Follow-up - 1 Week New Medications: Budesonide DR (Entocort EC) 3 Mg Capdr 9 MG PO DAILY for colitis, #30 CAP [address] (Aspirin DR) 81 Mg Tabdr 81 MG PO DAILY for Blood Clot Prevention, #30 TAB 0 Refills Cholestyramine (Cholestyramine) 4 Gm/Pkt Powd 4 GM PO Q6HR for Diarrhea, #90 PACKET 0 Refills 1 packet contains 4 grams of cholestyramine. Clopidogrel (Plavix) 75 Mg Tab 37.5 MG PO DAILY for Blood Clot Prevention, #30 TAB [address] (Duloxetine DR) 60 Mg Capdr 60 MG PO BID for Depression Control, #60 CAP 0 Refills Famotidine (Famotidine) 20 Mg Tab 10 MG PO Q12HR for Reflux, #60 TAB 0 Refills Hydrocodone/Acetaminophen (Hydrocodone-Acetamin 5-325 mg) 5 Mg-325 Mg Tablet 1 TAB PO Q4H PRN for PAIN SCALE 4 TO 10, #12 TAB 0 Refills Levothyroxine (Synthroid) 50 Mcg Tab 50 MCG PO DAILY@0600 for Low thyroid, #30 TAB 0 Refills Pravastatin (Pravachol) 20 Mg Tab 20 MG PO HS for Cholesterol Management, #30 TAB [address] (Azulfidine En-Tabs) 500 Mg Tab 500 MG PO Q8HR for Colitis, #90 TAB 0 Refills Isaac Spann MD May 21, 2017 14:54
[2017-05-21] MEDS ORDERED: AMLO5TAB2 PO (15:10)
[2017-05-21] MEDS ORDERED: amLODIPine BESYLATE 5 MG TAB PO SCH (15:15)
== END 2017-05-21 18:31 | DRG 392 ==
LOC: NEPE 12:55 → NEDA 15:31 → N06A 17:20
PROVIDERS: ADMIT Family Medicine; ATTEND Family Medicine
DX: K52.831 Collagenous colitis (principal); N17.9 Acute kidney failure, unspecified; E87.2 Acidosis; E86.0 Dehydration; N39.0 Urinary tract infection, site not specified; D64.9 Anemia, unspecified; R07.89 Other chest pain; B96.20 Unspecified Escherichia coli [E. coli] as the cause of diseases classified elsewhere; E03.9 Hypothyroidism, unspecified; R19.7 Diarrhea, unspecified; G89.29 Other chronic pain; M54.9 Dorsalgia, unspecified; I12.9 Hypertensive chronic kidney disease with stage 1 through stage 4 chronic kidney disease, or unspecified chronic kidney disease; N18.9 Chronic kidney disease, unspecified; I25.10 Atherosclerotic heart disease of native coronary artery without angina pectoris; K21.9 Gastro-esophageal reflux disease without esophagitis; J32.0 Chronic maxillary sinusitis; M48.00 Spinal stenosis, site unspecified; M79.7 Fibromyalgia; W18.11XA Fall from or off toilet without subsequent striking against object, initial encounter; Y92.002 Bathroom of unspecified non-institutional (private) residence as the place of occurrence of the external cause; Z86.73 Personal history of transient ischemic attack (TIA), and cerebral infarction without residual deficits; F41.8 Other specified anxiety disorders; F17.210 Nicotine dependence, cigarettes, uncomplicated; L93.0 Discoid lupus erythematosus
CPT/HCPCS: 70450; 71010; 80048; 80053; 80307; 81001; 82272; 82550; 83605; 83690; 83735; 84132; 84443; 84484; 85014; 85018; 85025; 85610; 85730; 86403; 87040; 87077; 87086; 87186; 87205; 87328; 87329; 87493; 87506; 93005; 96361; 96374; 96375; J0744; J1644; J2270; J2405; J2920; J7030; P9612

== ENCOUNTER 2017-06-22 11:29 | Inpatient (IN) | payer MEDICARE, BC ==
[~2017-06-22] VITALS: Ht 152.4 cm; Wt 55.2 kg
[2017-06-22] VITALS (8 sets, daily range): BP systolic 127–156; BP diastolic 66–80; PULSE 87–111; RESP 18–26; TEMP 94.5–99; O2SAT 98–100
[~2017-06-22 11:29] MED LIST changes: +AMLO5TAB2 PO; -ASPI81TA82 PO; -BUSP5TAB3 PO; -CELE200; -CENTTAB9 PO; +CHOL4POW4 PO; -COLE625 PO; +DULO1CAP3 PO; -DULO20 PO; +ECASA81 PO; +ENTO3CAP5 PO; +FAMO20TA2 PO; +HYDR-3516 PO; -HYDR10TA16 PO; +LEVO.05 PO; -LEVO50TA4 PO; -PLAV75TA PO; +PLAV75TA29 PO; +PRAV20TA PO; -PROV100T3 PO; +SULF500EC PO; -VITA400C59 CHEW; -ZOCO40TA PO
[2017-06-22] MEDS ORDERED: SODIUM CHLOR 0.9% 1000 ML INJ 1,000 ML IV SCH (11:52)
--- NOTE | 2017-06-22 11:58 | PD ---
HPI Chief Complaint: Altered Mental Status Time Seen by Provider: 11:43 Travel History International Travel<30 days: No Contact w/Intl Traveler<30days: No Traveled to known affect area: No History of Present Illness HPI 71-year-old female presents from a [facility] for initial transport of abnormal blood work. Patient had labs on the that showed a glucose of 49. The ambulance team checked in her sugar today was 58. They gave her D10 IV fluids and now her sugar is in the 100s the nursing staff states. The patient denies pain by shaking her head no but states when I ask her what is wrong. History is significantly limited. The ambulance team states they were told she had C. difficile and was refusing medication but was not given a medication list. PFSH Past Medical History Autoimmune Disease: Yes (LUPUS) Anxiety: Yes Depression: Yes Cancer: Yes (SKIN) Cardiovascular Problems: Yes (CAD CARDIAC STENT) High Cholesterol: Yes Diabetes: No Diminished Hearing: No Endocrine: No Fibromyalgia: Yes Gastrointestinal Disorders: Yes (IRRITABLE BOWEL) GERD: Yes Genitourinary: Yes Headaches: Yes Hepatitis: Yes Hiatal Hernia: No Hypertension: Yes Immune Disorder: Yes (? LUPUS) Musculoskeletal: Yes (DEGENERATIVE DISC DISEASE LUMBAR, CERVICAL STENOSIS) Neurologic: Yes (STROKE 2 YEARS AGO) Psychiatric: Yes (ANXIETY/DEPRESSION) Reproductive: No Respiratory: Yes Thyroid Disease: Yes Past Surgical History Abdominal Surgery: Yes (APPY) Appendectomy: Yes Body Medical Devices: CARDIAC STENT Cardiac Surgery: No Ear Surgery: No Endocrine Surgery: No Eye Surgery: Yes (CATARACT BELTRAN, CORNEA TRANSPLANTS BELTRAN) Genitourinary Surgery: Yes (CYSTECTOMY, HYSTERECTOMY) Hysterectomy: Yes Joint Replacement: No Oral Surgery: Yes (TONSILLECTOMY) Pacemaker: No Thoracic Surgery: No Tonsillectomy: Yes Social History Alcohol Use: No Tobacco Use: Yes (1PPD) Substance Use: No Allergies-Medications (Allergen,Severity, Reaction): Coded Allergies: diatrizoate meglumine (Unverified Adverse Reaction, Unknown, KIDNEY FUNCTION CHANGES, 05/17/17) gadobenic acid (Unverified Adverse Reaction, Unknown, KIDNEY FUNCTION CHANGES, 05/17/17) gadodiamide (Unverified Adverse Reaction, Unknown, KIDNEY FUNCTION CHANGES , 05/17/17) gadoteridol (Unverified Adverse Reaction, Unknown, KIDNEY FUNCTION CHANGES , 05/17/17) iodixanol (Unverified Adverse Reaction, Unknown, KIDNEY FUNCTION CHANGES, 05/17/17) iohexol (Unverified Adverse Reaction, Unknown, KIDNEY FUNCTION CHANGES, ) Reported Meds & Prescriptions Reported Meds & Active Scripts Active Hydrocodone-Acetamin 5-325 mg (Hydrocodone/Acetaminophen) 5 Mg-325 Mg Tablet 1 Tab PO Q4H PRN Famotidine 20 Mg Tab 10 Mg PO Q12HR Duloxetine DR (Duloxetine HCl) 60 Mg Capdr 60 Mg PO BID Aspirin DR (Aspirin) 81 Mg Tabdr 81 Mg PO DAILY Pravachol (Pravastatin) 20 Mg Tab 20 Mg PO HS Cholestyramine 4 Gm/Pkt Powd 4 Gm PO Q6HR 1 packet contains 4 grams of cholestyramine. Plavix (Clopidogrel Bisulfate) 75 Mg Tab 37.5 Mg PO DAILY Azulfidine En-Tabs (Sulfasalazine) 500 Mg Tab 500 Mg PO Q8HR Synthroid (Levothyroxine Sodium) 50 Mcg Tab 50 Mcg PO DAILY@0600 Entocort EC (Budesonide) 3 Mg Capdr 9 Mg PO DAILY Review of Systems ROS Limitations: Altered Mental Status Physical Exam Exam Limitations: Altered Mental Status Narrative GENERAL: Elderly, well-developed patient. SKIN: Warm and dry. HEAD: Normocephalic and atraumatic. EYES: No injection or drainage. Unequal pupils which appear postsurgical ENT: No nasal drainage noted. Dry mucous membranes NECK: Supple, trachea midline. CARDIOVASCULAR: Regular rate and rhythm RESPIRATORY: Breath sounds equal bilaterally at apices. No accessory muscle use. GASTROINTESTINAL: Abdomen soft, mild tenderness diffusely, nondistended. NEUROLOGICAL: Awake. Moves extremities. Very limited clear speech. Data Data Last Documented VS Vital Signs Date Time Temp Pulse Resp B/P (MAP) Pulse Ox O2 Delivery O2 Flow Rate FiO2 06/22/17 13:52 94.6 06/22/17 12:15 88 25 100 Room Air Orders Orders Electrocardiogram (06/22/17 11:52) Complete Blood Count With Diff (06/22/17 11:52) Comprehensive Metabolic Panel (06/22/17 11:52) Prothrombin Time / Inr (Pt) (06/22/17 11:52) Act Partial Throm Time (Ptt) (06/22/17 11:52) Lactic Acid Sepsis Protocol (06/22/17 11:52) Blood Culture (06/22/17 11:52) Chest, Single Ap (06/22/17 11:52) Ct Brain W/O Iv Contrast(Rout) (06/22/17 11:52) Blood Glucose (06/22/17 11:52) Ecg Monitoring (06/22/17 11:52) Iv Access Insert/Monitor (06/22/17 11:52) Oximetry (06/22/17 11:52) Sodium Chlor 0.9% 1000 Ml Inj (Ns 1000 M (06/22/17 11:52) Equip, Isolation Cart (06/22/17 11:52) Precautions (06/22/17 11:52) Urinalysis - C+S If Indicated (06/22/17 11:52) Cath For Specimen (06/22/17 12:25) Warming [place] / Warming Syst PRN (06/22/17 12:25) Urine Culture (06/22/17 12:25) Ct Abd/Pel W/O Iv Contrast (06/22/17 ) Sodium Bicarbonate 8.4% Inj (Sodium Bica (06/22/17 13:15) Sodium Chlor 0.9% 1000 Ml Inj (Ns 1000 M (06/22/17 13:15) Piperacil-Tazo 4.5 Gm Premix (Zosyn 4.5 (06/22/17 13:15) Sodium Bicarbonate 8.4% Inj (Sodium Bica (06/22/17 13:45) Sodium Chlor 0.9% 1000 Ml Inj (Ns 1000 M (06/22/17 14:00) Admit Order (Ed Use Only) (06/22/17 13:57) Labs Laboratory Tests Test 06/22/17 12:25 06/22/17 12:30 Urine Color YELLOW Urine Turbidity CLOUDY Urine pH 5.5 Urine Specific [place] 1.018 Urine Protein 100 mg/dL Urine Glucose (UA) NEG mg/dL Urine Ketones TRACE mg/dL Urine Occult Blood MOD Urine Nitrite NEG Urine Bilirubin NEG Urine Urobilinogen LESS THAN 2.0 MG/DL Urine Leukocyte Esterase LARGE Urine RBC 25 /hpf Urine WBC /hpf Urine WBC Clumps FEW Urine Bacteria MOD /hpf Urine Yeast (Budding) MANY Microscopic Urinalysis Comment CATH-CULTURE IND White Blood Count 17.2 TH/MM3 Red Blood Count 4.14 MIL/MM3 Hemoglobin 9.4 GM/DL Hematocrit 32.7 % Mean Corpuscular Volume 78.8 FL Mean Corpuscular Hemoglobin 22.6 PG Mean Corpuscular Hemoglobin Concent 28.7 % Red Cell Distribution Width 22.5 % Platelet Count 259 TH/MM3 Mean Platelet Volume 6.6 FL Neutrophils (%) (Auto) 89.8 % Lymphocytes (%) (Auto) 4.3 % Monocytes (%) (Auto) 5.5 % Eosinophils (%) (Auto) 0.1 % Basophils (%) (Auto) 0.3 % Neutrophils # (Auto) 15.4 TH/MM3 Lymphocytes # (Auto) 0.7 TH/MM3 Monocytes # (Auto) 0.9 TH/MM3 Eosinophils # (Auto) 0.0 TH/MM3 Basophils # (Auto) 0.0 TH/MM3 CBC Comment AUTO DIFF Differential Total Cells Counted 100 Neutrophils % (Manual) 84 % Band Neutrophils % 11 % Lymphocytes % 4 % Monocytes % 1 % Neutrophils # (Manual) 16.3 TH/MM3 Nucleated Red Blood Cells 3 /100 WBC Differential Comment FINAL DIFF MANUAL Platelet Estimate NORMAL Platelet Morphology Comment NORMAL Prothrombin Time 10.2 SEC Prothromb Time International Ratio 1.0 RATIO Activated Partial Thromboplast Time 33.1 SEC Blood Urea Nitrogen 19 MG/DL Creatinine 4.19 MG/DL Random Glucose 151 MG/DL Total Protein 5.3 GM/DL Albumin 2.6 GM/DL Calcium Level 8.7 MG/DL Alkaline Phosphatase 108 U/L Aspartate Amino Transf (AST/SGOT) 16 U/L Alanine Aminotransferase (ALT/SGPT) 9 U/L Total Bilirubin 0.3 MG/DL Sodium Level 141 MEQ/L Potassium Level 3.2 MEQ/L Chloride Level 121 MEQ/L Carbon Dioxide Level 8.8 MEQ/L Anion Gap 11 MEQ/L Estimat Glomerular Filtration Rate 10 ML/MIN Lactic Acid Level 0.9 mmol/L [facility] Medical Decision Making Medical Screen Exam Complete: Yes Emergency Medical Condition: Yes Medical Record Reviewed: Yes (past history confirmed) Interpretation(s) CBC & BMP Diagram 06/22/17 12:30 Total Protein 5.3 L, Albumin 2.6 L, Calcium Level 8.7, Alkaline Phosphatase 108 , Aspartate Amino Transf (AST/SGOT) 16, Alanine Aminotransferase (ALT/SGPT) 9 L , Total Bilirubin 0.3 Last [address] 06/22/17 1152 Signed Impressions: Service Date/Time: Thursday, June 22, 2017 13:03 - CONCLUSION: 1. Senescent changes without acute intracranial abnormality. Clinton Walter MD Chest X-Ray 06/22/17 1152 Signed Impressions: Service Date/Time: Thursday, June 22, 2017 12:39 - CONCLUSION: 1. Platelike bilateral lower lung zone airspace disease consistent with atelectasis. Clinton Walter MD Differential Diagnosis Acute renal failure, hypoglycemia, intercranial, electrolyte abnormality Narrative Course Will check blood work, urinalysis, chest x-ray, CT brain and dose with IV fluids Patient has significant renal failure without hyperkalemia, patient has depressed bicarbonate 8.8. We'll give 150 mEq of high carb and repeat IV fluid bolus. Given patient has elevated white count and hypothermia will give dose of Zosyn and add on CT abdomen pelvis to rule out other process. She will need to be monitored closely in the hospital. Sepsis Criteria SIRS Criteria (2 or more): Temp > 100.9 or < 96.8, WBC > 53401, < 4000 or > 10 % bands Sepsis Criteria (SIRS+source): Infect source susp/known Severe Sepsis (+one): Acute Oliguria/Renal Failure Criteria Outcome: Meets severe sepsis criteria Physician Communication Physician Communication dr horn agrees to admit Diagnosis Primary Impression: Acute kidney injury Additional Impressions: Diarrhea Qualified Codes: R19.7 - Diarrhea, unspecified UTI (urinary tract infection) Qualified Codes: N39.0 - Urinary tract infection, site not specified Anemia Qualified Codes: D64.9 - Anemia, unspecified Hypokalemia Low bicarbonate level Hypothermia Qualified Codes: T68.XXXA - Hypothermia, initial encounter Altered mental status Qualified Codes: R41.82 - Altered mental status, unspecified Admitting Information Admitting Physician Requests: Admit Evelyn Fernandez MD Jun 22, 2017 11:58
[2017-06-22] MEDS ORDERED: SODIUM CHLORIDE 0.9% FLUSH 10 ML FLUSH IV FLUSH PRN ×2 (12:00→14:15)
[2017-06-22 12:40] LABS: AUTOMATED NEUTROPHIL # 15.4 TH/MM3 (1.8-7.7); BASOPHIL % 0.3 % (0.0-2.0); EOSINOPHIL % 0.1 % (0.0-4.0); HEMATOCRIT 32.7 % (35.0-46.0); LYMPH % 4.3 % (9.0-44.0); LYMPHOCYTE # 0.7 TH/MM3 (1.0-4.8); MEAN CELL VOLUME 78.8 FL (80.0-100.0); MEAN CORPUSCULAR HEMOGLOBIN 22.6 PG (27.0-34.0); MONO % 5.5 % (0.0-8.0); NEUT % 89.8 % (16.0-70.0); PLATELET COUNT 259 TH/MM3 (150-450); RED BLOOD COUNT 4.14 MIL/MM3 (4.00-5.30); RED CELL DISTRIBUTION WIDTH 22.5 % (11.6-17.2); WHITE BLOOD COUNT 17.2 TH/MM3 (4.0-11.0)
[2017-06-22 12:42] LABS: HEMO FLAGS AUTO DIFF; MEAN CORPUSCULAR HGB CONC 28.7 % (32.0-36.0)
[2017-06-22 12:44] LABS: BACTERIA, URINE MOD /hpf; BLOOD, URINE MOD (NEG); GLUCOSE,URINE NEG (NEG); KETONE, URINE TRACE mg/dL (NEG); NITRITE,URINE NEG (NEG); PH, URINE 5.5 (5.0-8.5); URINE COLOR YELLOW (YELLW/STRAW)
[2017-06-22 12:46] LABS: APTT (PATIENT) 33.1 SEC (24.3-30.1); PROTHROMBIN TIME - PATIENT 10.2 SEC (9.8-11.6)
[2017-06-22 12:46] LABS: COMMENT (UR) CATH-CULTURE IND; CULTURE IF INDICATED CATH CULTURE IND
[2017-06-22 12:55] LABS: ALT (GPT) 9 U/L (10-53); ANION GAP 11 MEQ/L (5-15); AST (GOT) 16 U/L (15-37); BICARBONATE 8.8 MEQ/L (21.0-32.0); BLOOD UREA NITROGEN 19 MG/DL (7-18); CHLORIDE 121 MEQ/L (98-107); GLOMERULAR FILTRATION RATE 10 ML/MIN (>89); POTASSIUM 3.2 MEQ/L (3.5-5.1); SODIUM (NA) 141 MEQ/L (136-145)
--- NOTE | 2017-06-22 12:55 | RADRPT ---
EXAM DATE/TIME: 06/22/2017 12:39 [facility] COMPARISON: CHEST SINGLE AP, May 17, 2017, 13:35. INDICATIONS : Altered mental status. MEDICAL HISTORY : Cardiovascular disease. SURGICAL HISTORY : Hysterectomy. Appendectomy. ORIF left shoulder. ENCOUNTER: Initial ACUITY: 1 day PAIN SCORE: Non-responsive. LOCATION: Bilateral chest FINDINGS: Platelike bilateral lower lung zone air space disease. Cardiomediastinal contours are stable. Remaind er of the exam is unchanged. CONCLUSION: 1. Platelike bilateral lower lung zone airspace disease consistent with atelectasis. Clinton Walter MD on June 22, 2017 at 12:52 Board Certified Radiologist. This report was verified electronically.
[2017-06-22 12:58] LABS: ALKALINE PHOSPHATASE 108 U/L (45-117); TOTAL BILIRUBIN ADULT 0.3 MG/DL (0.2-1.0)
[2017-06-22 13:03] LABS: BANDS 11 % (0-6); CORRECTED NUCLEATED RBC 3 /100 WBC (0-0); NEUTROPHIL # MANUAL DIFF 16.3 TH/MM3 (1.8-7.7); PLATELET ESTIMATE SMEAR NORMAL (NORMAL); PLATELET MORPHOLOGY NORMAL (NORMAL); POLYS (SEG NEUTROPHILS) 84 % (16-70); SCAN/DIFF FINAL DIFF MANUAL; WBC DIFF SAMPLE 100
[2017-06-22] MEDS ORDERED: SODIUM BICARBONATE 8.4% INJ 50 MEQ/50 ML SYR IV PUSH ONE ×2 (13:15→13:45)
[2017-06-22] MEDS ORDERED: SODIUM CHLOR 0.9% 1000 ML INJ 1,000 ML IV ONE ×2 (13:15→14:00)
[2017-06-22] MEDS ORDERED: PIPERACIL-TAZO 4.5 GM PREMIX 100 ML IV STA (13:15)
--- NOTE | 2017-06-22 13:30 | RADRPT ---
EXAM DATE/TIME: 06/22/2017 13:03 [facility] COMPARISON: CT BRAIN W/O CONTRAST, May 17, 2017, 14:48. INDICATIONS : Altered mental status. RADIATION DOSE: 69.16 CTDIvol (mGy) MEDICAL HISTORY : Lupus. Hypertension. skin cancer SURGICAL HISTORY : Hysterectomy. ENCOUNTER: Initial ACUITY: 1 day PAIN SCALE: Non-responsive LOCATION: Bilateral head TECHNIQUE: Multiple contiguous axial images were obtained of the head. Using automated exposure control and adj ustment of the mA and/or kV according to patient size, radiation dose was kept as low as reasonably a chievable to obtain optimal diagnostic quality images. DICOM format image data is available electro nically for review and comparison. FINDINGS: CEREBRUM: Moderate diffuse cerebral volume loss. Stable left subinsular probable lacunar infarct. Mild perivent ricular white matter hypodensities consistent with ischemic white matter demyelination. The ventricle s are normal for age. No evidence of midline shift, mass lesion, hemorrhage or acute infarction. No extra-axial fluid collections are seen. POSTERIOR FOSSA: The cerebellum and brainstem are intact. The 4th ventricle is midline. The cerebellopontine angle i s unremarkable. EXTRACRANIAL: The visualized portion of the orbits is intact. Redemonstration of complete opacity to the right maxi llary sinus which centrally dense material. No bony erosion. Remaining paranasal sinuses and mastoid air cells are clear. SKULL: The calvaria is intact. No evidence of skull fracture. CONCLUSION: 1. Senescent changes without acute intracranial abnormality. Clinton Walter MD on June 22, 2017 at 13:25 Board Certified Radiologist. This report was verified electronically.
[2017-06-22] MEDS ORDERED: ACETAMINOPHEN 325 MG TAB PO PRN ×2 (14:15)
[2017-06-22] MEDS ORDERED: NALOXONE HCL 0.4 MG/ML AMP IV PUSH PRN (14:15)
--- NOTE | 2017-06-22 14:56 | HHI.HP ---
[facility] No Primary Care Physician Admission Diagnosis renal krystyna;ure, sepsis, hypothermia, diarrhea Diagnoses: (1) Sepsis (2) Metabolic encephalopathy (3) Diarrhea (4) Hypokalemia (5) Low bicarbonate level (6) Acute kidney injury Chief Complaint: Altered mental status change Travel History International Travel<30 Days: No Contact w/Intl Traveler <30 Da: No Traveled to Known Affected Are: No Sepsis Criteria SIRS Criteria (2 or more): RR > 20 or PaCO2 < 32, WBC > 37667, < 4000 or > 10 % bands Criteria Outcome: Meets sepsis criteria History of Present Illness 71-year-old female with a history of hypertension, CAD and a resident from a local group home facility was brought to the ED for evaluation of worsening mentation change. Patient is unable to communicate at this time during my exam and history is obtained from ED report and chart review below: "71-year-old female presents from a group home for initial transport of abnormal blood work. Patient had labs on the that showed a glucose of 49. The ambulance team checked in her sugar today was 58. They gave her D10 IV fluids and now her sugar is in the 100s the nursing staff states. The patient denies pain by shaking her head no but states when I ask her what is wrong. History is significantly limited. The ambulance team states they were told she had C. 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 Negative blood cultures. Patient was treated with IV Flagyl and Cipro. Hemoglobin was 7.6. Status post 1 unit of PRBC. Escherichia coli UTI Past Surgical History Coronary angiogram and stenting Colonoscopy Hysterectomy Appendectomy Tonsillectomy Reported Medications Hydrocodone-Acetamin 5-325 mg (Hydrocodone/Acetaminophen) 5 Mg-325 Mg Tablet 1 Tab PO Q4H PRN Famotidine 20 Mg Tab 10 Mg PO Q12HR Duloxetine DR (Duloxetine HCl) 60 Mg Capdr 60 Mg PO BID Aspirin DR (Aspirin) 81 Mg Tabdr 81 Mg PO DAILY Pravachol (Pravastatin) 20 Mg Tab 20 Mg PO HS Cholestyramine 4 Gm/Pkt Powd 4 Gm PO Q6HR 1 packet contains 4 grams of cholestyramine. Plavix (Clopidogrel Bisulfate) 75 Mg Tab 37.5 Mg PO DAILY Azulfidine En-Tabs (Sulfasalazine) 500 Mg Tab 500 Mg PO Q8HR Synthroid (Levothyroxine Sodium) 50 Mcg Tab 50 Mcg PO DAILY@0600 Entocort EC (Budesonide) 3 Mg Capdr 9 Mg PO DAILY Allergies: Coded Allergies: diatrizoate meglumine (Unverified Adverse Reaction, Unknown, KIDNEY FUNCTION CHANGES, 05/17/17) gadobenic acid (Unverified Adverse Reaction, Unknown, KIDNEY FUNCTION CHANGES, 05/17/17) gadodiamide (Unverified Adverse Reaction, Unknown, KIDNEY FUNCTION CHANGES , 05/17/17) gadoteridol (Unverified Adverse Reaction, Unknown, KIDNEY FUNCTION CHANGES , 05/17/17) iodixanol (Unverified Adverse Reaction, Unknown, KIDNEY FUNCTION CHANGES, 05/17/17) iohexol (Unverified Adverse Reaction, Unknown, KIDNEY FUNCTION CHANGES, ) Family History mother- kidney failure, [place] sister- lupus brother- rheumatic fever Social History Alcohol Use: No Tobacco Use: Yes (1PPD) Substance Use: No Physical Exam Vital Signs Vital Signs Date Time Temp Pulse Resp B/P (MAP) Pulse Ox O2 Delivery O2 Flow Rate FiO2 06/22/17 13:52 94.6 06/22/17 12:38 94.5 06/22/17 12:15 94.5 88 25 127/79 (95) 100 Room Air 06/22/17 12:04 Room Air 06/22/17 11:44 85 23 100 Room Air 06/22/17 11:39 87 26 135/80 (98) Physical Exam GENERAL: This is a well-nourished, well-developed patient, in no apparent distress. SKIN: No rashes, ecchymoses or lesions. Cool and dry. HEAD: Atraumatic. Normocephalic. No temporal or scalp tenderness. EYES: Pupils equal round and reactive. Extraocular motions intact. No scleral icterus. No injection or drainage. ENT: Nose without bleeding, purulent drainage or septal hematoma. Throat without erythema, tonsillar hypertrophy or exudate. Uvula midline. Airway patent. NECK: Trachea midline. No JVD or lymphadenopathy. Supple, nontender, no meningeal signs. CARDIOVASCULAR: Regular rate and rhythm without murmurs, gallops, or rubs. RESPIRATORY: Clear to auscultation. Breath sounds equal bilaterally. No wheezes , rales, or rhonchi. GASTROINTESTINAL: Abdomen soft, non-tender, nondistended. No hepato-splenomegaly , or palpable masses. No guarding. MUSCULOSKELETAL: Extremities without clubbing, cyanosis, or edema. No joint tenderness, effusion, or edema noted. No calf tenderness. Negative Homans sign bilaterally. NEUROLOGICAL: Awake and alert. Cranial nerves II through XII intact. Motor and sensory grossly within normal limits. Five out of 5 muscle strength in all muscle groups. Normal speech. Laboratory Laboratory Tests Test 06/22/17 12:25 06/22/17 12:30 Urine Color YELLOW Urine Turbidity CLOUDY Urine pH 5.5 Urine Specific [place] 1.018 Urine Protein 100 Urine Glucose (UA) NEG Urine Ketones TRACE Urine Occult Blood MOD Urine Nitrite NEG Urine Bilirubin NEG Urine Urobilinogen LESS THAN 2.0 Urine Leukocyte Esterase LARGE Urine RBC 25 Urine WBC Urine WBC Clumps FEW Urine Bacteria MOD Urine Yeast (Budding) MANY Microscopic Urinalysis Comment CATH-CULTURE IND White Blood Count 17.2 Red Blood Count 4.14 Hemoglobin 9.4 Hematocrit 32.7 Mean Corpuscular Volume 78.8 Mean Corpuscular Hemoglobin 22.6 Mean Corpuscular Hemoglobin Concent 28.7 Red Cell Distribution Width 22.5 Platelet Count 259 Mean Platelet Volume 6.6 Neutrophils (%) (Auto) 89.8 Lymphocytes (%) (Auto) 4.3 Monocytes (%) (Auto) 5.5 Eosinophils (%) (Auto) 0.1 Basophils (%) (Auto) 0.3 Neutrophils # (Auto) 15.4 Lymphocytes # (Auto) 0.7 Monocytes # (Auto) 0.9 Eosinophils # (Auto) 0.0 Basophils # (Auto) 0.0 CBC Comment AUTO DIFF Differential Total Cells Counted 100 Neutrophils % (Manual) 84 Band Neutrophils % 11 Lymphocytes % 4 Monocytes % 1 Neutrophils # (Manual) 16.3 Nucleated Red Blood Cells 3 Differential Comment FINAL DIFF MANUAL Platelet Estimate NORMAL Platelet Morphology Comment NORMAL Prothrombin Time 10.2 Prothromb Time International Ratio 1.0 Activated Partial Thromboplast Time 33.1 Blood Urea Nitrogen 19 Creatinine 4.19 Random Glucose 151 Total Protein 5.3 Albumin 2.6 Calcium Level 8.7 Alkaline Phosphatase 108 Aspartate Amino Transf (AST/SGOT) 16 Alanine Aminotransferase (ALT/SGPT) 9 Total Bilirubin 0.3 Sodium Level 141 Potassium Level 3.2 Chloride Level 121 Carbon Dioxide Level 8.8 Anion Gap 11 Estimat Glomerular Filtration Rate 10 Lactic Acid Level 0.9 Date/Time Source Procedure Growth Status 06/22/17 12:30 Blood Peripheral Aerobic Blood Culture Pending Received 06/22/17 12:30 Blood Peripheral Anaerobic Blood Culture Pending Received 06/22/17 12:25 Urine Catheterized Urine Urine Culture Pending Received Result Diagram: 06/22/17 1230 06/22/17 1230 Imaging Last Impressions Head CT 06/22/17 1152 Signed Impressions: Service Date/Time: Thursday, June 22, 2017 13:03 - CONCLUSION: 1. Senescent changes without acute intracranial abnormality. Clinton Walter MD Chest X-Ray 06/22/17 1152 Signed Impressions: Service Date/Time: Thursday, June 22, 2017 12:39 - CONCLUSION: 1. Platelike bilateral lower lung zone airspace disease consistent with atelectasis. Clinton Walter MD Abdomen/Pelvis CT 06/22/17 0000 Signed Impressions: Service Date/Time: Thursday, June 22, 2017 14:44 - CONCLUSION: 1. Diffusely fluid-filled slightly prominent colon without significant colonic wall thickening. Although nonspecific, findings likely reflect enteritis. Although less likely, very early infectious colitis cannot be excluded. 2. Significantly distended gallbladder without significant biliary ductal dilatation. This may be due to prolonged fasting. Clinical correlation is recommended. Consider ultrasound examination if there is significant continued clinical concern. 3. Mild patchy airspace disease at the left lung base, presumably atelectasis. 4. Very minimal trace bilateral pleural effusions. MD Maria A Glass VTE Risk Assessment Caprini VTE Risk Assessment: Mod/High Risk (score >= 2) Caprini Risk Assessment Model Point Value = 1 Point Value = 2 Point Value = 3 Point Value = 5 Age 41-60 Minor surgery BMI > 25 kg/m2 Swollen legs Varicose veins or History of unexplained or recurrent spontaneous Oral contraceptives or hormone replacement Sepsis (< 1 month) Serious lung disease, including pneumonia (< 1 month) Abnormal pulmonary function Acute myocardial infarction Congestive heart failure (< 1 month) History of inflammatory bowel disease Medical patient at bed rest Age 61-74 Arthroscopic surgery Major open surgery (> 45 min) Laparoscopic surgery (> 45 min) Malignancy Confined to bed (> 72 hours) Immobilizing plaster cast Central venous access Age >= 75 History of VTE Family history of VTE Factor V Leiden Prothrombin [id number] Lupus anticoagulant Anticardiolipin antibodies Elevated serum homocysteine Heparin-induced thrombocytopenia Other congenital or acquired thrombophilia Stroke (< 1 month) Elective arthroplasty Hip, pelvis, or leg fracture Acute spinal cord injury (< 1 month) Prophylaxis Regimen Total Risk Factor Score Risk Level Prophylaxis Regimen 0-1 Low Early ambulation 2 Moderate Order ONE of the following: *Sequential Compression Device (SCD) *Heparin 5000 units SQ BID 3-4 Higher Order ONE of the following medications: *Heparin 5000 units SQ TID *Enoxaparin/Lovenox 40 mg SQ daily (WT < 150 kg, CrCl > 30 mL/min) *Enoxaparin/Lovenox 30 mg SQ daily (WT < 150 kg, CrCl > 10-29 mL/min) *Enoxaparin/Lovenox 30 mg SQ BID (WT < 150 kg, CrCl > 30 mL/min) AND/OR *Sequential Compression Device (SCD) 5 or more Highest Order ONE of the following medications: *Heparin 5000 units SQ TID (Preferred with Epidurals) *Enoxaparin/Lovenox 40 mg SQ daily (WT < 150 kg, CrCl > 30 mL/min) *Enoxaparin/Lovenox 30 mg SQ daily (WT < 150 kg, CrCl > 10-29 mL/min) *Enoxaparin/Lovenox 30 mg SQ BID (WT < 150 kg, CrCl > 30 mL/min) AND *Sequential Compression Device (SCD) Assessment and Plan Problem List: (1) Sepsis ICD Code: A41.9 - Sepsis, unspecified organism (2) Metabolic encephalopathy ICD Code: G93.41 - Metabolic encephalopathy (3) Acute kidney injury ICD Code: N17.9 - Acute kidney failure, unspecified Status: Acute (4) Low bicarbonate level ICD Code: E87.8 - Other disorders of electrolyte and fluid balance, not elsewhere classified Status: Acute (5) Hypothermia ICD Code: T68.XXXA - Hypothermia, initial encounter Status: Acute (6) Hypokalemia ICD Code: E87.6 - Hypokalemia Status: Acute Assessment and Plan 71-year-old female with Sepsis:RR > 20 or PaCO2 < 32, WBC > 02073, < 4000 or > 10% bands; unknown source UA pending Status post Zosyn IV 1 in ED Start Cipro and Flagyl IV pending culture reports Previous history of C. difficile Patient currently with diarrhea episodes per EMR CT abdomen noted and review by me without any acute finding Check C. difficile PCR Start empiric Cipro and Flagyl pending culture report Metabolic encephalopathy CT Head noted and review by me without any acute finding Minimize oversedation Keep nothing by mouth until eval performed Leukocytosis with bandemia Treat as in above and monitor culture report as well as white blood cell count Acute renal failure Aggressive IV fluid resuscitation Avoid all nephrotoxic drugs Monitor BUN/threatening Hypothermia Treat infection Bear hugger Hypokalemia Replace electrolyte and monitor DVT prophylaxis: Bilateral SCDs Code Status Full code Discussed Condition With ED physician Physician Certification 2 Midnight Certification Type: Admission for Inpatient Services Order for Inpatient Services The services are ordered in accordance with Medicare regulations or non- Medicare payer requirements, as applicable. In the case of services not specified as inpatient-only, they are appropriately provided as inpatient services in accordance with the 2-midnight benchmark. Estimated LOS (days): 2 days is the estimated time the patient will need to remain in the hospital, assuming treatment plan goals are met and no additional complications. Post-Hospital Plan: Not yet determined Problem Qualifiers (1) Diarrhea: Qualified Codes: R19.7 - Diarrhea, unspecified (2) Hypothermia: Qualified Codes: T68.XXXA - Hypothermia, initial encounter Ryland Lockett MD Jun 22, 2017 14:56
--- NOTE | 2017-06-22 15:10 | RADRPT ---
EXAM DATE/TIME: 06/22/2017 14:44 [facility] COMPARISON: No previous studies available for comparison. INDICATIONS : Watery diarrhea and abdominal pain. ORAL CONTRAST: No oral contrast ingested. RADIATION DOSE: 14.98 CTDIvol (mGy) MEDICAL HISTORY : Hypertension. Cardiovascular disease Hepatitis. SURGICAL HISTORY : Appendectomy. Hysterectomy. ENCOUNTER: Initial ACUITY: 1 day PAIN SCALE: 5/10 LOCATION: abdomen TECHNIQUE: Volumetric scanning of the abdomen and pelvis was performed. Using automated exposure control and ad justment of the mA and/or kV according to patient size, radiation dose was kept as low as reasonably achievable to obtain optimal diagnostic quality images. DICOM format image data is available electro nically for review and comparison. FINDINGS: LOWER LUNGS: Patchy airspace disease at the left lung base. Subtle bilateral pleural effusions. LIVER: Homogeneous density without lesion. There is no dilation of the biliary tree. Diffusely distended ga llbladder SPLEEN: Normal size without lesion. PANCREAS: Within normal limits. KIDNEYS: Kidneys are somewhat asymmetrical in size with a smaller left kidney. No radiopaque renal calculi or hydronephrosis. No significant contour deforming renal abnormality. ADRENAL GLANDS: Within normal limits. VASCULAR: There is no aortic aneurysm. BOWEL/MESENTERY: Diffusely fluid-filled slightly prominent colon without significant colonic wall thickening or isauro lonic stranding. Small bowel appear normal in caliber without evidence for small bowel obstruction. T here is no pneumatosis or free air. No drainable fluid collection or ascites. ABDOMINAL WALL: Within normal limits. RETROPERITONEUM: There is no lymphadenopathy. BLADDER: Completely decompressed secondary to Sandoval catheter. REPRODUCTIVE: Within normal limits. INGUINAL: There is no lymphadenopathy or hernia. MUSCULOSKELETAL: Degenerative spondylosis of the lumbar CONCLUSION: 1. Diffusely fluid-filled slightly prominent colon without significant colonic wall thickening. Altho ugh nonspecific, findings likely reflect enteritis. Although less likely, very early infectious colit is cannot be excluded. 2. Significantly distended gallbladder without significant biliary ductal dilatation. This may be due to prolonged fasting. Clinical correlation is recommended. Consider ultrasound examination if there is significant continued clinical concern. 3. Mild patchy airspace disease at the left lung base, presumably atelectasis. 4. Very minimal trace bilateral pleural effusions. Clinton Walter MD on June 22, 2017 at 15:03 Board Certified Radiologist. This report was verified electronically.
[2017-06-22] MEDS: metroNIDAZOLE 500 MG INJ 100 ML IV SCH (17:26)
[2017-06-22] MEDS: CIPROFLOXACIN 400 MG PREMIX 200 ML IV SCH (19:43)
[2017-06-22] MEDS: PRAVASTATIN SOD 20 MG TAB PO SCH (21:17)
[2017-06-22] MEDS: SODIUM CHLORIDE 0.9% FLUSH 10 ML FLUSH IV FLUSH SCH (21:17)
[2017-06-22] MEDS: SODIUM CHLOR 0.9% 1000 ML INJ 1,000 ML IV SCH (21:17)
[2017-06-22] MEDS: LACTOBACILLUS ACIDOPHILUS TAB PO SCH (21:17)
--- NOTE | 2017-06-22 21:24 | EKG ---
Date Performed: 06/22/2017 Time Performed: 12:09:45 PTAGE: 71 years EKG: Sinus rhythm , RIGHT BUNDLE BRANCH BLOCK, NONSPECIFIC T WAVE ABNORMALITIES, ABNORMAL ECG PREVIOUS TRACING : 05/17/2017 14.00 Compared to previous tracing, diffuse nonspecific T wave ch anges are now present. DOCTOR: Con Mclaughlin Interpretating Date/Time 06/22/2017 21:22:58
[2017-06-23] VITALS (8 sets, daily range): BP systolic 123–142; BP diastolic 57–67; PULSE 94–115; RESP 17–20; TEMP 97.3–98.5; O2SAT 92–99
[2017-06-23] MEDS: SODIUM CHLOR 0.9% 1000 ML INJ 1,000 ML IV SCH (00:09)
[2017-06-23] MEDS: metroNIDAZOLE 500 MG INJ 100 ML IV SCH ×2 (01:30→08:01)
[2017-06-23 01:59] LABS: C. DIFF EPI 027 PRESUMPTIVE NEGATIVE (NEGATIVE)
[2017-06-23] MEDS: CIPROFLOXACIN 400 MG PREMIX 200 ML IV SCH ×2 (04:51→17:11)
[2017-06-23] MEDS: LEVOTHYROXINE SODIUM 50 MCG TAB PO SCH ×2 (05:42→20:33)
[2017-06-23] MEDS: SODIUM CHLORIDE 0.9% FLUSH 10 ML FLUSH IV FLUSH SCH ×2 (08:01→20:35)
[2017-06-23] MEDS ORDERED: DEXTROSE 50% IN WATER 50 ML VIAL(D50) IV PUSH PRN (08:30)
[2017-06-23] MEDS ORDERED: GLUCAGON 1 MG/ML VIAL OTHER PRN (08:30)
[2017-06-23] MEDS: CLOPIDOGREL 75 MG TAB PO SCH (09:00)
[2017-06-23] MEDS: amLODIPine BESYLATE 5 MG TAB PO SCH (09:00)
[2017-06-23] MEDS ORDERED: BUDESONIDE 9 MG PO SCH (09:00)
[2017-06-23] MEDS: ASPIRIN EC 81 MG TABEC PO SCH (09:00)
[2017-06-23 10:00] LABS: AUTOMATED NEUTROPHIL # 10.1 TH/MM3 (1.8-7.7); BASOPHIL % 0.3 % (0.0-2.0); EOSINOPHIL % 0.2 % (0.0-4.0); HEMATOCRIT 28.6 % (35.0-46.0); HEMO FLAGS DIFF FINAL; LYMPH % 5.3 % (9.0-44.0); LYMPHOCYTE # 0.6 TH/MM3 (1.0-4.8); MEAN CORPUSCULAR HGB CONC 31.2 % (32.0-36.0); MONO % 11.9 % (0.0-8.0); NEUT % 82.3 % (16.0-70.0); PLATELET COUNT 201 TH/MM3 (150-450); RED BLOOD COUNT 3.72 MIL/MM3 (4.00-5.30); RED CELL DISTRIBUTION WIDTH 22.6 % (11.6-17.2); WHITE BLOOD COUNT 12.2 TH/MM3 (4.0-11.0)
--- NOTE | 2017-06-23 10:06 | HHI.PR ---
Subjective Remarks Follow-up acute kidney injury and encephalopathy. She remains confused tells me her name and follows simple commands. Urine output 270 cc overnight. Moaning Seems to be tender in her abdomen. Left message with the son-in-law to have patient's daughter to return my call. Discussed with RN Objective Vitals Vital Signs Date Time Temp Pulse Resp B/P (MAP) Pulse Ox O2 Delivery O2 Flow Rate FiO2 06/23/17 08:00 98.5 98 18 129/60 (83) 98 06/23/17 07:00 103 06/23/17 07:00 Room Air 06/23/17 04:00 Room Air 06/23/17 03:46 106 06/23/17 00:00 Room Air 06/23/17 00:00 98.5 115 20 136/60 (85) 95 06/22/17 23:42 109 06/22/17 20:00 Room Air 06/22/17 20:00 99.0 107 20 156/72 (100) 100 06/22/17 19:32 111 06/22/17 16:04 06/22/17 16:00 97.5 108 18 148/66 (93) 98 06/22/17 13:52 94.6 06/22/17 12:38 94.5 06/22/17 12:15 94.5 88 25 127/79 (95) 100 Room Air 06/22/17 12:04 Room Air 06/22/17 11:44 85 23 100 Room Air 06/22/17 11:39 87 26 135/80 (98) I/O 06/22/17 06/22/17 06/22/17 06/23/17 06/23/17 06/23/17 07:00 15:00 23:00 07:00 15:00 23:00 Intake Total 100 ml 1170 ml 300 ml Balance 100 ml 1170 ml 300 ml Intake IV Total 100 ml 1170 ml 300 ml # Bowel Movements 1 Result Diagram: 06/23/17 0740 06/22/17 1230 Imaging Last Impressions Head CT 06/22/17 1152 Signed Impressions: Service Date/Time: Thursday, June 22, 2017 13:03 - CONCLUSION: 1. Senescent changes without acute intracranial abnormality. Clinton Walter MD Chest X-Ray 06/22/17 1152 Signed Impressions: Service Date/Time: Thursday, June 22, 2017 12:39 - CONCLUSION: 1. Platelike bilateral lower lung zone airspace disease consistent with atelectasis. Clinton Walter MD Abdomen/Pelvis CT 06/22/17 0000 Signed Impressions: Service Date/Time: Thursday, June 22, 2017 14:44 - CONCLUSION: 1. Diffusely fluid-filled slightly prominent colon without significant colonic wall thickening. Although nonspecific, findings likely reflect enteritis. Although less likely, very early infectious colitis cannot be excluded. 2. Significantly distended gallbladder without significant biliary ductal dilatation. This may be due to prolonged fasting. Clinical correlation is recommended. Consider ultrasound examination if there is significant continued clinical concern. 3. Mild patchy airspace disease at the left lung base, presumably atelectasis. 4. Very minimal trace bilateral pleural effusions. Clinton Walter MD Objective Remarks GENERAL: This is a well-nourished, well-developed patient who is critically ill SKIN: No rashes, ecchymoses or lesions. Cool and dry. EYES: Pupils equal round and reactive. Extraocular motions intact. No scleral icterus. No injection or drainage. ENT: Nose without bleeding, purulent drainage or septal hematoma. Throat without erythema, tonsillar hypertrophy or exudate. Uvula midline. Airway patent. Dry oral mucosa NECK: Trachea midline. No JVD or lymphadenopathy. Supple, nontender, no meningeal signs. CARDIOVASCULAR: Regular rate and rhythm without murmurs, gallops, or rubs. RESPIRATORY: Clear to auscultation. Breath sounds equal bilaterally. No wheezes , rales, or rhonchi. GASTROINTESTINAL: Abdomen soft, nondistended. Seems to be tender morning when elevated. No guarding. MUSCULOSKELETAL: Extremities without clubbing, cyanosis, or edema. NEUROLOGICAL: Lethargic told me her name and follow simple commands. Moving all extremities Procedures none A/P Problem List: (1) Sepsis ICD Code: A41.9 - Sepsis, unspecified organism (2) Metabolic encephalopathy ICD Code: G93.41 - Metabolic encephalopathy (3) Acute kidney injury ICD Code: N17.9 - Acute kidney failure, unspecified Status: Acute (4) Low bicarbonate level ICD Code: E87.8 - Other disorders of electrolyte and fluid balance, not elsewhere classified Status: Acute (5) Hypothermia ICD Code: T68.XXXA - Hypothermia, initial encounter Status: Acute (6) Hypokalemia ICD Code: E87.6 - Hypokalemia Status: Acute Assessment and Plan 71-year-old female with Sepsis and UTI. Continue ciprofloxacin and discontinue Flagyl and follow-up cultures: Previous history of C. difficile and collagenous colitis. Repeat C. difficile negative. Discussed with RN to obtain complete med list from assisted. Continue Entocort Metabolic/septic encephalopathy likely secondary to acute kidney injury and UTI. CT Head noted and review by me without any acute finding. Neurochecks. If worse consider brain MRI and EEG Dysphagia. Failed bedside swallowing evaluation. Consult speech therapy. Keep nothing by mouth. Start tube feeding via NGT. Aspiration precautions. Consult dietitian for 2 feeding recommendations Hypoglycemia secondary to nothing by mouth status. Monitor fingersticks and start D5. Hypoglycemia protocol Acute kidney injury with acidosis secondary to dehydration and sepsis. Nonoliguric. Switch IV fluid to half MS with sodium bicarbonate. Avoid nephrotoxins. Consult nephrology Abdominal tenderness with distended gallbladder. LFTs within normal limits. Obtain gallbladder sonogram. Pain management with IV morphine Hypokalemia secondary to diarrhea. Check magnesium. Replace aggressively as long as patient has adequate urine output. We'll give 60 meq IV potassium and repeat BMP and mag today Chronic medical conditions of anemia, hypertension, coronary artery disease, CVA and hypothyroidism. Continue outpatient medications as appropriate DVT prophylaxis: Bilateral SCDs and subcutaneous heparin Patient is critical and we'll transfer to ICU for close monitoring. High likelihood of decompensation with multiorgan failure Discharge Planning Transfer to ICU. Critical care time spent 35 minutes Problem Qualifiers (1) Hypothermia: Qualified Codes: T68.XXXA - Hypothermia, initial encounter Roni Mccormack MD Jun 23, 2017 10:06
[2017-06-23 10:14] LABS: ALKALINE PHOSPHATASE 107 U/L (45-117); ALT (GPT) 9 U/L (10-53); ANION GAP 12 MEQ/L (5-15); AST (GOT) 17 U/L (15-37); BICARBONATE 9.8 MEQ/L (21.0-32.0); BLOOD UREA NITROGEN 20 MG/DL (7-18); CHLORIDE 127 MEQ/L (98-107); GLOMERULAR FILTRATION RATE 11 ML/MIN (>89); SODIUM (NA) 149 MEQ/L (136-145); TOTAL BILIRUBIN ADULT 0.3 MG/DL (0.2-1.0)
[2017-06-23] MEDS ORDERED: ACETAMINOPHEN/HYDROcodone 325 MG/7.5 MG TAB PO PRN (10:15)
[2017-06-23] MEDS ORDERED: ACETAMINOPHEN/HYDROcodone 325 MG/5 MG TAB PO PRN (10:15)
[2017-06-23] MEDS ORDERED: MORPHINE SULFATE 4 MG/ML INJ IV PUSH PRN ×2 (10:15)
[2017-06-23 10:21] LABS: POTASSIUM 2.4 MEQ/L (3.5-5.1)
[2017-06-23] MEDS: POTASSIUM CHLOR 20 MEQ PREMIX 100 ML IV SCH ×3 (11:32→15:44)
[2017-06-23] MEDS ORDERED: POTASSIUM CHLORIDE INJ 30 MEQ in SODIUM CHLORIDE 0.9% INJ 100 ML IV SCH (12:00)
[2017-06-23] MEDS ORDERED: SODIUM BICARBONATE 8.4% INJ 100 MEQ, POTASSIUM CHLORIDE INJ 20 MEQ in SODIUM CHLOR 0.45... IV SCH (12:00)
[2017-06-23] MEDS ORDERED: AZILSARTAN (12:31)
[2017-06-23] MEDS ORDERED: mobic (12:33)
[2017-06-23] MEDS ORDERED: buspar PO (12:35)
[2017-06-23] MEDS ORDERED: MONT10TA2 PO (12:35)
[2017-06-23] MEDS ORDERED: [UNRECOGNIZED DRUG - OTHER] PO (12:40)
[2017-06-23] MEDS ORDERED: MAGN400T2 PO (12:40)
[2017-06-23] MEDS ORDERED: ROCEPHINE IV (12:40)
[2017-06-23] MEDS ORDERED: [UNRECOGNIZED DRUG - OTHER] PO (12:40)
[2017-06-23] MEDS: SODIUM BICARBONATE IV SCH ×2 (13:31→20:35)
[2017-06-23] MEDS: [UNRECOGNIZED DRUG - OTHER] IV SCH ×2 (13:31→20:35)
[2017-06-23] MEDS: POTASSIUM CHLORIDE IV SCH ×2 (13:31→20:35)
--- NOTE | 2017-06-23 13:49 | MB ---
cc: MICHELLE KOLB MD DATE OF CONSULTATION: 06/23/2017. REASON FOR CONSULTATION: Elevated BUN and creatinine. HISTORY OF PRESENT ILLNESS: This is a 71-year-old female with past medical history of hypertension, ischemic heart disease, history of hepatitis B, history of alcoholism in the past, cerebrovascular accident, hypothyroidism who was transferred here from the nursing facility because of altered mental status and diarrhea. I was called to see the patient because of very high BUN and creatinine. The patient had creatinine of 4.1 on presentation. The potassium has been on the lower side and she has history of renal failure in the past and creatinine was as high as 2.64 about a month ago and it improved to 0.9 to 1.1. The patient is quite lethargic and sleepy and not able to give any history. Most of the history was taken from the patient's chart according to which she lives in a nursing facility and she was transferred here mainly because of worsening mentation and abnormal blood tests. The patient was not eating well. She has loose bowel motions. Most of the history was taken from the patient's chart. PAST MEDICAL HISTORY: 1. Hypertension. 2. Ischemic heart disease. 3. Hepatitis B. 4. History of alcoholism. 5. Cerebrovascular accident. 6. Hypothyroidism. REVIEW OF SYSTEMS: A review of systems cannot be taken since she is not answering any questions. PAST SURGICAL HISTORY: 1. Hysterectomy. 2. Appendectomy. 3. Tonsillectomy. 4. Cardiac catheterization with stenting. 5. Colonoscopy. SOCIAL HISTORY: The patient lives in a nursing facility. She has a past history of alcoholism a long time ago. Smokes one pack per day. FAMILY HISTORY: Family history is not available. ALLERGIES: SHE HAS MULTIPLE ALLERGIES INCLUDIN. IOHEXOL. 2. ACID. 3. DIATRIZOATE. MEDICATIONS: Currently she is on the following medications: 1. IV fluids with potassium and bicarbonate at 125/hour. 2. Amlodipine 5 milligrams once a day. 3. Aspirin 81 milligrams daily. 4. Levothyroxine 50 micrograms daily. 5. Pravachol 20 milligrams once a day. 6. Plavix 75 milligrams daily. 7. Ciprofloxacin 200 milligrams q. 12 hours. 8. Lactinex one tablet daily. 9. Famotidine 10 milligrams q. 12 hours. 10. Potassium chloride replacement 4 grams q. 6 hours. 11. Sulfasalazine 500 milligrams q. 8 hours. PHYSICAL EXAMINATION: GENERAL: On examination, the patient is sleepy. She just opens her eyes but is not following any other commands and is not able to tell her name. VITAL SIGNS: Her last blood pressure was 129/60, temperature is 98.5, oxygen saturation on room air is 98%. HEAD, EYES, EARS, NOSE, THROAT: The pupils are mid constricted. Nonicteric sclerae. Conjunctivae are pale. NECK: The neck is supple. JVD is not elevated. LUNGS: The patient has bilateral good air entry with occasional wheezing. HEART: S1 and S2 regular rhythm. ABDOMEN: Abdomen is distended, soft and lax. There is mild diffuse tenderness. There is no rebound or rigidity. Bowel sounds positive. EXTREMITIES: There is no pedal edema. INVESTIGATIONS: White blood cell count is 12.2, hemoglobin 8.9, platelet count of 201,000. Neutrophils 82.3%. Sodium 149, potassium 2.4, chloride 127, bicarbonate 9.8, BUN 20, creatinine 4.1, glucose 38, calcium is 8.0. AST is 17, ALT is 9. Total protein is 4.4 with albumin of 1.9. INR is 1.0. Urinalysis shows that she has protein 100, RBCs 25, WBCs innumerable, many yeast. Previously she had immunology including MICHAEL negative; this was in 2012. She has antiphospholipid antibodies present. Blood culture and urine culture pending. IMAGING STUDIES: The patient had abdominal and pelvis CT scan done which shows prominent colon, distended gallbladder, patchy airspace disease, trace bilateral pleural effusions. The kidneys are mentioned as asymmetrical. The size is small left kidney. No hydronephrosis or calculi. CT scan of the brain was done also without IV contrast and it shows no abnormality. Chest x-ray was done and it shows bilateral lower lobe airspace disease and atelectasis. ASSESSMENT AND PLAN: 1. Acute kidney injury. 2. Severe metabolic acidosis. 3. Hypokalemia. 4. Encephalopathy. 5. Urinary tract infection. 6. History of cerebrovascular accident. 7. Anemia. The patient has a very high creatinine as compared to the BUN and has metabolic acidosis. I will check the urine potassium. Most likely she has potassium loss because of diarrhea with loose bowel motion and also to some extent by decreased oral intake. Agree with continuing IV fluids with sodium bicarbonate and potassium. Most likely the acute kidney injury is because of dehydration and prerenal with a possibility of acute tubular necrosis. I will also get the urine sodium and osmolality and eosinophils. Avoid any nephrotoxins. Thank you for the consultation, and I will follow the patient while she is in the hospital. MD BRAYDON Valentin/ELMIRA /12:23 PM /1:25 PM
[2017-06-23] MEDS: sulfaSALAzine EC 500 MG TABEC PO SCH ×3 (14:00→20:38)
--- NOTE | 2017-06-23 15:35 | RADRPT ---
EXAM DATE/TIME: 06/23/2017 14:13 [facility] COMPARISON: No previous studies available for comparison. INDICATIONS : Right upper quadrant pain. MEDICAL HISTORY : Hypercholesterolemia. Hypertension. Gastroesophageal reflux disease. Thyroid disease. Glasses. Dentur es. Renal disease. Anxiety. Skin cancer. Hepatitis. SURGICAL HISTORY : Tonsillectomy. Appendectomy. Hysterectomy. Bilateral cataract surgery. Cystectomy. ENCOUNTER: Initial ACUITY: 2 days PAIN SCORE: <8/10> LOCATION: Right upper quadrant MEASUREMENTS: LIVER: <14>> cm length COMMON DUCT: <4> mm RIGHT KIDNEY: <<10> cm FINDINGS: There is a small right pleural effusion LIVER: Normal echotexture without focal lesion or ductal dilatation. COMMON DUCT: No intraluminal mass or stone visualized. GALLBLADDER: The gallbladder is quite distended . Contains no stones, demonstrates no wall thickening or perichol ecystic fluid. PANCREAS: The visualized portions are within normal limits. RIGHT KIDNEY: No evidence of hydronephrosis, stone, or mass. CONCLUSION: Gallbladder is quite distended. A small right pleural effusion. Pacheco Che MD on June 23, 2017 at 15:30 Board Certified Radiologist. This report was verified electronically.
[2017-06-23] MEDS: CHOLESTYRAMINE 4 GM PACKET PO SCH ×3 (18:00→20:38)
[2017-06-23] MEDS: MORPHINE SULFATE 4 MG/ML INJ IV PUSH PRN (18:11)
[2017-06-23] MEDS: HEPARIN SODIUM - SQ 10,000 UNITS/ML VIAL SQ SCH (20:32)
[2017-06-23] MEDS: SODIUM BICARBONATE 8.4% INJ 100 MEQ, POTASSIUM CHLORIDE INJ 20 MEQ in SODIUM CHLOR 0.45... IV PRN (20:34)
[2017-06-23] MEDS: PRAVASTATIN SOD 20 MG TAB PO SCH (20:35)
[2017-06-23] MEDS: FAMOTIDINE 20 MG TAB PO SCH (20:37)
[2017-06-23] MEDS: LACTOBACILLUS ACIDOPHILUS TAB PO SCH (20:37)
[2017-06-23 22:43] LABS: BICARBONATE 10.3 MEQ/L (21.0-32.0); MAGNESIUM 2.3 MG/DL (1.5-2.5); POTASSIUM 3.1 MEQ/L (3.5-5.1)
[2017-06-24] VITALS (9 sets, daily range): BP systolic 101–118; BP diastolic 56–65; PULSE 83–112; RESP 18–23; TEMP 96.5–98.2; O2SAT 95–100
[2017-06-24] MEDS: MORPHINE SULFATE 4 MG/ML INJ IV PUSH PRN (02:20)
[2017-06-24] MEDS: POTASSIUM CHLOR 10 MEQ PREMIX 100 ML IV SCH ×3 (02:45→04:43)
[2017-06-24] MEDS: CIPROFLOXACIN 400 MG PREMIX 200 ML IV SCH ×2 (03:55→17:23)
[2017-06-24] MEDS: [UNRECOGNIZED DRUG - OTHER] IV SCH (05:36)
[2017-06-24] MEDS: SODIUM BICARBONATE 8.4% INJ 100 MEQ, POTASSIUM CHLORIDE INJ 20 MEQ in SODIUM CHLOR 0.45... IV PRN (05:36)
[2017-06-24] MEDS: POTASSIUM CHLORIDE IV SCH ×3 (05:36→20:00)
[2017-06-24] MEDS: SODIUM BICARBONATE IV SCH (05:36)
[2017-06-24 06:51] LABS: AUTOMATED NEUTROPHIL # 11.1 TH/MM3 (1.8-7.7); BASOPHIL % 0.1 % (0.0-2.0); EOSINOPHIL # 0.1 TH/MM3 (0-0.4); EOSINOPHIL % 0.7 % (0.0-4.0); HEMO FLAGS DIFF FINAL; LYMPHOCYTE # 1.1 TH/MM3 (1.0-4.8); MEAN CELL VOLUME 74.8 FL (80.0-100.0); MEAN CORPUSCULAR HEMOGLOBIN 23.6 PG (27.0-34.0); MEAN CORPUSCULAR HGB CONC 31.5 % (32.0-36.0); MONO % 10.6 % (0.0-8.0); NEUT % 80.6 % (16.0-70.0); PLATELET COUNT 246 TH/MM3 (150-450); RED BLOOD COUNT 3.87 MIL/MM3 (4.00-5.30); RED CELL DISTRIBUTION WIDTH 22.6 % (11.6-17.2); WHITE BLOOD COUNT 13.7 TH/MM3 (4.0-11.0)
[2017-06-24 07:09] LABS: BICARBONATE 14.7 MEQ/L (21.0-32.0); MAGNESIUM 2.2 MG/DL (1.5-2.5); POTASSIUM 3.6 MEQ/L (3.5-5.1)
[2017-06-24] MEDS: ASPIRIN EC 81 MG TABEC PO SCH (09:00)
[2017-06-24] MEDS: amLODIPine BESYLATE 5 MG TAB PO SCH (09:00)
[2017-06-24] MEDS: SODIUM CHLORIDE 0.9% FLUSH 10 ML FLUSH IV FLUSH SCH ×2 (09:00→20:03)
[2017-06-24] MEDS: LACTOBACILLUS ACIDOPHILUS TAB PO SCH ×2 (09:00→20:03)
[2017-06-24] MEDS: FAMOTIDINE 20 MG TAB PO SCH ×2 (09:00→20:03)
[2017-06-24] MEDS ORDERED: FAMOTIDINE 20 MG/2 ML VIAL IV PUSH PRN (09:45)
[2017-06-24] MEDS ORDERED: MORPHINE SULFATE 2 MG/ML INJ IV PUSH PRN (10:00)
[2017-06-24] MEDS ORDERED: POTASSIUM CHLORIDE IV PRN ×4 (11:00)
[2017-06-24] MEDS ORDERED: [UNRECOGNIZED DRUG - OTHER] IV PRN ×4 (11:00)
[2017-06-24] MEDS ORDERED: SODIUM CHLORIDE IV PRN ×4 (11:00)
[2017-06-24] MEDS ORDERED: EDAR80TA PO (11:08)
[2017-06-24] MEDS ORDERED: BUSP15TA PO (11:08)
[2017-06-24] MEDS: CHOLESTYRAMINE 4 GM PACKET PO SCH ×3 (11:16→23:45)
[2017-06-24] MEDS: HEPARIN SODIUM - SQ 10,000 UNITS/ML VIAL SQ SCH ×2 (11:24→20:03)
[2017-06-24] MEDS: SODIUM BICARB IV SCH ×2 (11:45→20:00)
[2017-06-24] MEDS: [UNRECOGNIZED DRUG - OTHER] IV SCH ×2 (11:45→20:00)
--- NOTE | 2017-06-24 13:30 | HHI.PR ---
Subjective Remarks Follow-up encephalopathy, acute kidney injury with acidosis. Remains encephalopathic. She is moaning. Spoke with daughters yesterday who did not inform me that patient's daughter is not available. She is currently incarcerated according to patient's sister Alexy who has been the only family member available. Alexy tells me that when she was of sound mind, patient does not want heroic measures and just wants to . She has stopped eating and refused medications. Last night, according to night nurse whom I spoke with, patient refused NGT insertion or medications and feeding and ripped out her IV. RN also told me that she was oriented and wanted to be a DNR. Dw palliative care , there was no assessment by a physician that she was capacitated last night. Yesterday she was obviously not able to make informed decisions. Case also discussed with nursing staff and case management. Objective Vitals Vital Signs Date Time Temp Pulse Resp B/P (MAP) Pulse Ox O2 Delivery O2 Flow Rate FiO2 06/24/17 12:00 96.5 99 18 103/56 (72) 99 06/24/17 07:00 Room Air 06/24/17 04:00 98.0 94 18 110/65 (80) 100 06/24/17 00:00 98.2 83 22 118/56 (76) 100 06/23/17 20:00 97.8 94 17 123/62 (82) 92 06/23/17 19:00 Room Air 06/23/17 18:00 98.0 104 20 124/57 (79) 96 06/23/17 18:00 101 06/23/17 16:00 98.3 101 18 142/67 (92) 96 06/23/17 16:00 100 I/O 06/23/17 06/23/17 06/23/17 06/24/17 06/24/17 06/24/17 07:00 15:00 23:00 07:00 15:00 23:00 Intake Total 300 ml 0 ml 1500 ml Output Total 450 ml 100 ml Balance 300 ml -450 ml 1400 ml Intake Oral 0 ml 0 ml IV Total 300 ml 1500 ml Output Urine Total 450 ml 100 ml # Bowel Movements 1 3 Result Diagram: 06/24/1728 06/24/17627 Imaging Last Impressions Gall Bladder Ultrasound 06/23/17 0000 Signed Impressions: Service Date/Time: Friday, June 23, 2017 14:13 - CONCLUSION: Gallbladder is quite distended. A small right pleural effusion. Pacheco Che MD Head CT 06/22/17 1152 Signed Impressions: Service Date/Time: Thursday, June 22, 2017 13:03 - CONCLUSION: 1. Senescent changes without acute intracranial abnormality. Clinton Walter MD Chest X-Ray 06/22/17 1152 Signed Impressions: Service Date/Time: Thursday, June 22, 2017 12:39 - CONCLUSION: 1. Platelike bilateral lower lung zone airspace disease consistent with atelectasis. Clinton Walter MD Abdomen/Pelvis CT 06/22/17 0000 Signed Impressions: Service Date/Time: Thursday, June 22, 2017 14:44 - CONCLUSION: 1. Diffusely fluid-filled slightly prominent colon without significant colonic wall thickening. Although nonspecific, findings likely reflect enteritis. Although less likely, very early infectious colitis cannot be excluded. 2. Significantly distended gallbladder without significant biliary ductal dilatation. This may be due to prolonged fasting. Clinical correlation is recommended. Consider ultrasound examination if there is significant continued clinical concern. 3. Mild patchy airspace disease at the left lung base, presumably atelectasis. 4. Very minimal trace bilateral pleural effusions. Clinton Walter MD Objective Remarks GENERAL: This is a well-nourished, well-developed patient who is critically ill SKIN: No rashes, ecchymoses or lesions. Cool and dry. CARDIOVASCULAR: Regular rate and rhythm without murmurs, gallops, or rubs. RESPIRATORY: Clear to auscultation. Decreased Breath sounds equal bilaterally. No wheezes, rales, or rhonchi. GASTROINTESTINAL: Abdomen soft, nondistended. Seems to be tender moaning when palpated. No guarding. MUSCULOSKELETAL: Extremities without clubbing, cyanosis, or edema. NEUROLOGICAL: More lethargic and not answering questions and not following commands. Moving all extremities Procedures none A/P Problem List: (1) Sepsis ICD Code: A41.9 - Sepsis, unspecified organism (2) Metabolic encephalopathy ICD Code: G93.41 - Metabolic encephalopathy (3) Acute kidney injury ICD Code: N17.9 - Acute kidney failure, unspecified Status: Acute (4) Low bicarbonate level ICD Code: E87.8 - Other disorders of electrolyte and fluid balance, not elsewhere classified Status: Acute (5) Hypothermia ICD Code: T68.XXXA - Hypothermia, initial encounter Status: Acute (6) Hypokalemia ICD Code: E87.6 - Hypokalemia Status: Acute Assessment and Plan 71-year-old female with Sepsis and UTI. Continue ciprofloxacin and follow-up cultures: Abdominal tenderness with distended gallbladder. LFTs within normal limits. Add Flagyl. Pain management with IV morphine. Consider GS consult Previous history of C. difficile and collagenous colitis. Repeat C. difficile negative. Discussed with RN to obtain complete med list from custodial. Continue Entocort Metabolic/septic encephalopathy likely secondary to acute kidney injury and infection. CT Head noted and review by me without any acute finding. Neurochecks. If worse consider brain MRI and EEG Dysphagia. Failed bedside swallowing evaluation. Consult speech therapy. Keep nothing by mouth. Start tube feeding via NGT. Aspiration precautions. Consult dietitian for tube feeding recommendations Hypoglycemia secondary to nothing by mouth status. Hypoglycemic this morning. Monitor fingersticks and continue D5. Hypoglycemia protocol Acute kidney injury with acidosis secondary to dehydration and sepsis. Nonoliguric. Not any better with hypernatremia. Change IV fluid to more hypotonic fluid to 1/4 S with sodium bicarbonate. Avoid nephrotoxins. Consulted nephrology Hypokalemia secondary to diarrhea. Improved. Replace aggressively as long as patient has adequate urine output. Chronic medical conditions of anemia, hypertension, coronary artery disease, CVA and hypothyroidism. Continue outpatient medications as appropriate DVT prophylaxis: Bilateral SCDs and subcutaneous heparin Patient is critical and we'll keep in ICU for close monitoring. High likelihood of decompensation with multiorgan failure Discharge Planning Long discussion with palliative care. Aggressive efforts will be attempted to contact daughter who is next of kin to clarify goals of care and CODE STATUS. At this time patient is a full code and we'll continue aggressive medical management. Critical care time spent 35 minutes Problem Qualifiers (1) Hypothermia: Qualified Codes: T68.XXXA - Hypothermia, initial encounter Roni Mccormack MD Jun 24, 2017 13:30
[2017-06-24] MEDS: sulfaSALAzine EC 500 MG TABEC PO SCH ×2 (14:00→20:04)
--- NOTE | 2017-06-24 14:02 | HHI.HCPN ---
Palliative care consulted to assist with goals of care. In review of notes Ms. Middleton has a daughter (Andria Felipe) incarcerated. Obtained custody information via google search. Left message with Orange Jessica (#[phone] ) at the [facility] to inquire about daughter's ability to be involved in medical decision making. Awaiting call back. 4pm-- received call from Cristobal Jennings ([phone]) bilingual case manager with the detention. Tentative phone conference scheduled with daughter tomorrow, Saturday at 1015am. Per Cristobal daughter is up for release from detention 07/01. Spoke with patients son in law, Fabrice Felipe. He is the of daughter Andria. He states he is in contact with Andria and she is currently working on getting a furrlow to come see her mother. He also tells me there are no other children. Spoke with half-sister, Alexy Hsieh ([phone]). Confirms there is only 1 daughter and she is incarcerated. Reports a brother in [place], Elijah Middleton # [phone]. He is aware of hospitalization. Parents . Alexy tells me Ms. Middleton has been hospitalized for the past 2-3 months, in and out of [facility]. States she has been battling infection, falls, and now "she looks just like my mother did in that bed". Mother from kidney failure and a weak heart. In further conversation sister tells me the family was together over gi and had conversations regarding her wishes. Alexy tells me "Lynette said her daughter would keep her alive with tubes and machines and she made us promise we would be there to not allow that to happen, but she never signed the papers". Offered emotional support. She tells me daughter has struggled with drugs and "took everything from Lynette", "she never had a letter to prove it stating she is sorry for everything she put her mother through". At my visit Ms. Middleton confused, answers few questions appropriately, believes she is at work. Unable to redirect or engage much in conversation. Nurse at bedside providing care. Per [place] Statutes, in absence of advanced directives, medical proxy decision making would fall to patient's only daughter. If she is unwilling or unable to make medical decisions, then it would fall to the majority of adult siblings (1 brother and 1 half-sister). Palliative care will continue to follow throughout hospitalization. Will attempt to further address goals of care when proxy decision maker is identified. Ginny Freeman, ELIS Jun 24, 2017 14:02
[2017-06-24] MEDS: metroNIDAZOLE 500 MG INJ 100 ML IV SCH ×2 (16:15→20:03)
--- NOTE | 2017-06-24 17:18 | HHI.NPPN ---
Subjective History of Present Illness 71-year-old female with past medical history of hypertension, ischemic heart disease, history of hepatitis B, history of alcoholism in the past, cerebrovascular accident, hypothyroidism who was transferred here from the nursing facility because of altered mental status and diarrhea. I was called to see the patient because of very high BUN and creatinine. Additional Remarks Patient remain lethargic and confused, not in distress. Objective Data Data Vital Signs Date Time Temp Pulse Resp B/P (MAP) Pulse Ox O2 Delivery O2 Flow Rate FiO2 06/24/17 12:00 96.5 99 18 103/56 (72) 99 06/24/17 07:00 Room Air 06/24/17 04:00 98.0 94 18 110/65 (80) 100 06/24/17 00:00 98.2 83 22 118/56 (76) 100 06/23/17 20:00 97.8 94 17 123/62 (82) 92 06/23/17 19:00 Room Air 06/23/17 18:00 98.0 104 20 124/57 (79) 96 06/23/17 18:00 101 -: 06/24/17 0628 06/24/17 0628 Physical Exam General Appearance: Anxious Appearance Remarks open eyes and not in distress, remain confused. Eyes Eye Exam: Pupils Equal Neck Neck Exam: Neck Supple Pulmonary Resp Exam: Breath Sounds Equal, No Distress, Rhonchi, Decreased Bases Cardiology CV Exam: Regular, Normal Sinus Rhythm Gastrointestinal/Abdomen GI Exam: Soft, Non-Tender, Bowel Sounds Present Extremeties Extremities Exam: No Edema Neurologic Neuro Exam: Obtunded Assessment/Plan Assessment Summary: SONIA/Acute Renal Failure Problem List: (1) Anemia ICD Codes: D64.9 - Anemia, unspecified (2) Altered mental status ICD Codes: R41.82 - Altered mental status, unspecified Status: Acute (3) Metabolic encephalopathy ICD Codes: G93.41 - Metabolic encephalopathy (4) Low bicarbonate level ICD Codes: E87.8 - Other disorders of electrolyte and fluid balance, not elsewhere classified Status: Acute (5) Diarrhea ICD Codes: R19.7 - Diarrhea, unspecified Status: Acute (6) Hypothermia ICD Codes: T68.XXXA - Hypothermia, initial encounter Status: Acute (7) Acute kidney injury ICD Codes: N17.9 - Acute kidney failure, unspecified Status: Acute Plan Patient has very high BUN and Creatinine. Urine Na. is low and Eosinophils is negative. BP is better, Continue IVF with NaHco3. Urine out put is low. Most likely has ATN. If no improvement, possible HD. Problem Qualifiers (1) Anemia: Qualified Codes: D64.9 - Anemia, unspecified (2) Altered mental status: Qualified Codes: R41.82 - Altered mental status, unspecified (3) Diarrhea: Qualified Codes: R19.7 - Diarrhea, unspecified (4) Hypothermia: Qualified Codes: T68.XXXA - Hypothermia, initial encounter Javid Benson MD Jun 24, 2017 17:18
[2017-06-24] MEDS: PRAVASTATIN SOD 20 MG TAB PO SCH (20:03)
[2017-06-25] VITALS (10 sets, daily range): BP systolic 106–155; BP diastolic 60–91; PULSE 92–111; RESP 18–27; TEMP 98.9; O2SAT 91–97
[2017-06-25] MEDS: [UNRECOGNIZED DRUG - OTHER] IV SCH ×3 (03:00→20:10)
[2017-06-25] MEDS: POTASSIUM CHLORIDE IV SCH ×3 (03:00→20:10)
[2017-06-25] MEDS: SODIUM BICARB IV SCH ×3 (03:00→20:10)
[2017-06-25] MEDS: metroNIDAZOLE 500 MG INJ 100 ML IV SCH ×4 (03:40→20:11)
[2017-06-25] MEDS: CHOLESTYRAMINE 4 GM PACKET PO SCH ×5 (03:40→23:04)
[2017-06-25] MEDS: LEVOTHYROXINE SODIUM 50 MCG TAB PO SCH (03:40)
[2017-06-25] MEDS: sulfaSALAzine EC 500 MG TABEC PO SCH ×3 (03:41→20:54)
[2017-06-25] MEDS: CIPROFLOXACIN 400 MG PREMIX 200 ML IV SCH (05:57)
[2017-06-25] MEDS: FAMOTIDINE 20 MG/2 ML VIAL IV PUSH SCH ×2 (06:41→16:34)
[2017-06-25] MEDS: LEVOTHYROXINE SODIUM 100 MCG VIAL IV PUSH SCH (06:41)
[2017-06-25 07:53] LABS: AUTOMATED NEUTROPHIL # 6.9 TH/MM3 (1.8-7.7); BASOPHIL % 0.5 % (0.0-2.0); EOSINOPHIL # 0.2 TH/MM3 (0-0.4); EOSINOPHIL % 1.7 % (0.0-4.0); HEMO FLAGS DIFF FINAL; LYMPH % 12.8 % (9.0-44.0); LYMPHOCYTE # 1.2 TH/MM3 (1.0-4.8); MEAN CELL VOLUME 74.6 FL (80.0-100.0); MEAN CORPUSCULAR HEMOGLOBIN 23.3 PG (27.0-34.0); MEAN CORPUSCULAR HGB CONC 31.2 % (32.0-36.0); PLATELET COUNT 278 TH/MM3 (150-450); RED BLOOD COUNT 3.89 MIL/MM3 (4.00-5.30); RED CELL DISTRIBUTION WIDTH 22.4 % (11.6-17.2); WHITE BLOOD COUNT 9.7 TH/MM3 (4.0-11.0)
[2017-06-25] MEDS: HEPARIN SODIUM - SQ 10,000 UNITS/ML VIAL SQ SCH ×2 (08:10→20:10)
[2017-06-25] MEDS: CLOPIDOGREL 75 MG TAB PO SCH ×2 (08:11→14:33)
[2017-06-25] MEDS: ASPIRIN EC 81 MG TABEC PO SCH (08:11)
[2017-06-25] MEDS: MORPHINE SULFATE 2 MG/ML INJ IV PUSH PRN ×2 (08:11→23:23)
[2017-06-25] MEDS: LACTOBACILLUS ACIDOPHILUS TAB PO SCH ×3 (08:11→20:11)
[2017-06-25] MEDS: amLODIPine BESYLATE 5 MG TAB PO SCH ×2 (08:11→14:32)
[2017-06-25] MEDS: SODIUM CHLORIDE 0.9% FLUSH 10 ML FLUSH IV FLUSH SCH ×2 (08:12→20:10)
[2017-06-25 08:19] LABS: BICARBONATE 20.5 MEQ/L (21.0-32.0); POTASSIUM 3.4 MEQ/L (3.5-5.1)
[2017-06-25] MEDS ORDERED: POTASSIUM CHLOR 20 MEQ PREMIX 100 ML IV ONE ×2 (09:45→10:45)
[2017-06-25] MEDS ORDERED: FLUCONAZOLE 200 MG PREMIX BAG 100 ML IV ONE (09:45)
[2017-06-25] MEDS ORDERED: POTASSIUM CHLOR 10 MEQ PREMIX 100 ML IV SCH (11:00)
--- NOTE | 2017-06-25 11:25 | HHI.PR ---
Subjective Remarks F/u encephalopathy and SONIA. Awake today states she is awful wanting to go to bathroom. Denies pain. Oriented to person only intermittently ff commands. Does not want NGT Dw RN Objective Vitals Vital Signs Date Time Temp Pulse Resp B/P (MAP) Pulse Ox O2 Delivery O2 Flow Rate FiO2 06/25/17 10:00 104 06/25/17 09:00 100 06/25/17 08:16 18 06/25/17 08:00 106 06/25/17 08:00 98.6 106 27 111/67 (82) 91 06/25/17 07:00 Room Air 06/25/17 04:00 98.6 94 19 113/60 (77) 97 06/25/17 00:00 98.2 97 20 106/68 (81) 97 06/24/17 20:00 97.7 96 23 110/63 (79) 95 06/24/17 19:00 Room Air 06/24/17 18:00 95 06/24/17 16:00 97.4 109 18 101/61 (74) 100 06/24/17 16:00 99 06/24/17 14:00 101 06/24/17 12:00 94 06/24/17 12:00 96.5 99 18 103/56 (72) 99 I/O 06/24/17 06/24/17 06/24/17 06/25/17 06/25/17 06/25/17 07:00 15:00 23:00 07:00 15:00 23:00 Intake Total 1500 ml 1947 ml 1664 ml 100 ml Output Total 100 ml 300 ml 775 ml Balance 1400 ml 1647 ml 889 ml 100 ml Intake Oral 0 ml 0 ml 0 ml IV Total 1500 ml 1947 ml 1664 ml 100 ml Output Urine Total 100 ml 200 ml 175 ml Stool Total 100 ml 600 ml # Bowel Movements 3 4 Result Diagram: 06/25/17 0706 06/25/17 0706 Imaging Last Impressions Gall Bladder Ultrasound 06/23/17 0000 Signed Impressions: Service Date/Time: Friday, June 23, 2017 14:13 - CONCLUSION: Gallbladder is quite distended. A small right pleural effusion. Pacheco Che MD Head CT 06/22/17 1152 Signed Impressions: Service Date/Time: Thursday, June 22, 2017 13:03 - CONCLUSION: 1. Senescent changes without acute intracranial abnormality. Clinton Walter MD Chest X-Ray 06/22/17 1152 Signed Impressions: Service Date/Time: Thursday, June 22, 2017 12:39 - CONCLUSION: 1. Platelike bilateral lower lung zone airspace disease consistent with atelectasis. Clinton Walter MD Abdomen/Pelvis CT 06/22/17 0000 Signed Impressions: Service Date/Time: Thursday, June 22, 2017 14:44 - CONCLUSION: 1. Diffusely fluid-filled slightly prominent colon without significant colonic wall thickening. Although nonspecific, findings likely reflect enteritis. Although less likely, very early infectious colitis cannot be excluded. 2. Significantly distended gallbladder without significant biliary ductal dilatation. This may be due to prolonged fasting. Clinical correlation is recommended. Consider ultrasound examination if there is significant continued clinical concern. 3. Mild patchy airspace disease at the left lung base, presumably atelectasis. 4. Very minimal trace bilateral pleural effusions. Clinton Walter MD Objective Remarks GENERAL: This is a well-nourished, well-developed patient SKIN: No rashes, ecchymoses or lesions. Cool and dry. CARDIOVASCULAR: Regular rate and rhythm without murmurs, gallops, or rubs. RESPIRATORY: Clear to auscultation. Decreased Breath sounds equal bilaterally. No wheezes, rales, or rhonchi. GASTROINTESTINAL: Abdomen soft, nondistended. Nontender. No guarding. MUSCULOSKELETAL: Extremities without clubbing, cyanosis, or edema. NEUROLOGICAL: Awake answering questions and following commands intermittently. Moving all extremities Procedures none A/P Problem List: (1) Sepsis ICD Code: A41.9 - Sepsis, unspecified organism (2) Metabolic encephalopathy ICD Code: G93.41 - Metabolic encephalopathy (3) Acute kidney injury ICD Code: N17.9 - Acute kidney failure, unspecified Status: Acute (4) Low bicarbonate level ICD Code: E87.8 - Other disorders of electrolyte and fluid balance, not elsewhere classified Status: Acute (5) Hypothermia ICD Code: T68.XXXA - Hypothermia, initial encounter Status: Acute (6) Hypokalemia ICD Code: E87.6 - Hypokalemia Status: Acute Assessment and Plan 71-year-old female with Sepsis and UTI. Ucx with mana add Diflucan Abdominal tenderness with distended gallbladder. LFTs within normal limits. Leukocytosis improving. No pain/tenderness today ct Cipro and Flagyl. Pain management with IV morphine. Consider GS consult Previous history of C. difficile and collagenous colitis. Repeat C. difficile negative. Discussed with RN to obtain [facility] med list from jail. Continue Entocort. Consult GI 2/2 profuse diarrhea leading to SONIA Metabolic/septic encephalopathy likely secondary to acute kidney injury and infection. CT Head noted and review by me without any acute finding. Improving. Neurochecks. If worse consider brain MRI and EEG Dysphagia. Failed bedside swallowing evaluation. Consulted speech therapy will f/u kieran with improved MS. Keep nothing by mouth. Start tube feeding via NGT. Aspiration precautions. Consult dietitian for tube feeding recommendations. Pt does not want NGT. Consider TPN or PPN Hypoglycemia secondary to nothing by mouth status. Improving. Monitor fingersticks and continue D5. Hypoglycemia protocol Acute kidney injury with acidosis secondary to dehydration and sepsis. Nonoliguric. Likely has ATN may need hemodialysis. Continue 1/4 S with sodium bicarbonate. Avoid nephrotoxins. Consulted nephrology Hypokalemia secondary to diarrhea. Improved. Replace aggressively as long as patient has adequate urine output. Chronic medical conditions of anemia, hypertension, coronary artery disease, CVA and hypothyroidism. Continue outpatient medications as appropriate DVT prophylaxis: Bilateral SCDs and subcutaneous heparin Discharge Planning Long discussion with palliative care. Aggressive efforts will be attempted to contact daughter who is next of kin to clarify goals of care and CODE STATUS. At this time patient is a full code and we'll continue aggressive medical management. Problem Qualifiers (1) Hypothermia: Qualified Codes: T68.XXXA - Hypothermia, initial encounter Roni Mccormack MD Jun 25, 2017 11:25
--- NOTE | 2017-06-25 11:29 | PD.CONS ---
Consult Service Palliative Care . Consult Requested By Dr. Mccormack . Primary Care Physician No Primary Care Physician . Reason for Consultation a. To assist with evaluation and management of symptoms including: encephalopathy, pain. b. To assist medical decision maker(s) with: better understanding of current medical conditions; weighing benefits/burdens of medical treatment options; making medical treatment decisions. . HPI History of Present Illness Ms. Middleton is a 71 year old female with past medical history of CAD, hypertension , lupus, hypothyroidism, skin cancer, irritable bowel/ colitis, hyperlipidemia, anxiety/depression, prior CVA and hepatitis B. Patient was previously admitted 05/17/17 -05/21/17 for acute renal injury, colitis and dehydration. She was discharged to [facility] for rehab. Family reports ongoing trajectory of decline over the past few months. Patient presented to [facility] on 06/22/17 after she was found to hypoglycemic (glucose 49) on 06/19/17 labs. She was more lethargic. Glucose on EMS arrival was 58 she was given D10 with improvement to the 100s. Upon arrival she was found to have: * WBC 17.2, he 11 9.4, hematocrit 32.7, platelet count 259, neutrophil 89.8% * sodium 141, potassium 3.2, chloride 121, carbon dioxide 8.8, BUN 19, creatinine 4.19, glucose 151, GFR 10 * lactic acid 0.9 * total bilirubin 0.3, AST 16, ALT 9, alkaline phosphatase 108 * total protein 5.3, albumin 2.6 * CT abdomen/pelvis diffusely fluid filled slightly prominent: without significant colonic wall thickening, nonspecific may reflect enteritis, infectious early colitis, significantly distended gallbladder without significant biliary ductal dilatation, mild patchy airspace disease at the left lung base, presumably atelectasis, minimal trace bilateral pleural effusions. * CT head - senescent changes without acute intracranial abnormality * chest x-ray - platelike bilateral lower zone airspace disease consistent with atelectasis Patient was admitted to ICU with acute renal failure, hypoglycemia. Gallbladder ultrasound revealed gallbladder distended and a small right pleural effusion. Nephrology was consulted for elevated BUN and creatinine likely ATN, recommended continued medical management, may need hemodialysis if renal function continues to worsen. Since admission patient has remained confused, lethargic. WBC has normalized, currently 9.7. Creatinine 3.94, BUN 21, GFR 11. 06/22/17 urine culture positive mana tropicalis. Blood cultures no growth in 3 days. Gastroenterology was consulted and recommended NG tube placement, repeat stool studies and continued medical management. Speech therapy attempted repeat swallow eval however patient yelled get away from me and refused any further assessment. Palliative care was consulted to assist with further clarification of treatment goals. . Function/Cognitive Trajectory Patient has had ongoing trajectory of decline over the past few months with recurrent colitis, worsening renal function additionally cognitive, nutritional and functional decline. . Review of Systems Constitutional: COMPLAINS OF: Fatigue, Change in appetite (decreased), Generalized weakness Respiratory: COMPLAINS OF: Shortness of breath Gastrointestinal: COMPLAINS OF: Abdominal pain, Diarrhea, Anorexia Hematologic/Lymphatics: COMPLAINS OF: Bruising Psychiatric: COMPLAINS OF: Confusion Other ROS: ROS per daughter, EMR and nursing review. Patient lethargic unable to answer most questions. Past Family Social History Coded Allergies: diatrizoate meglumine (Unverified Adverse Reaction, Unknown, KIDNEY FUNCTION CHANGES, 05/17/17) gadobenic acid (Unverified Adverse Reaction, Unknown, KIDNEY FUNCTION CHANGES, 05/17/17) gadodiamide (Unverified Adverse Reaction, Unknown, KIDNEY FUNCTION CHANGES , 05/17/17) gadoteridol (Unverified Adverse Reaction, Unknown, KIDNEY FUNCTION CHANGES , 05/17/17) iodixanol (Unverified Adverse Reaction, Unknown, KIDNEY FUNCTION CHANGES, 05/17/17) iohexol (Unverified Adverse Reaction, Unknown, KIDNEY FUNCTION CHANGES, ) Past Medical History Coronary artery disease - stent- 2 yrs ago on Plavix Hepatitis B - previously treated recurrent UTIs CVA- 3 yrs ago , no residual Hypothyroidism Hypertension Summary of [facility] hospitalization course: April 21, 2017 to April 30, 2017 hospital stay collagenous colitis- at 04/21/17 hospital admission Positive occult blood stool. Negative blood cultures. Patient was treated with IV Flagyl and Cipro. Hemoglobin was 7.6. Status post 1 unit of PRBC. Escherichia coli UTI . Past Surgical History Coronary angiogram and stenting Colonoscopy Hysterectomy Appendectomy Tonsillectomy . Reported Medications Reported Meds & Active Scripts Active Amlodipine (Amlodipine Besylate) 5 Mg Tab 5 Mg PO DAILY Hydrocodone-Acetamin 5-325 mg (Hydrocodone/Acetaminophen) 5 Mg-325 Mg Tablet 1 Tab PO Q4H PRN Famotidine 20 Mg Tab 10 Mg PO Q12HR Duloxetine DR (Duloxetine HCl) 60 Mg Capdr 60 Mg PO BID Aspirin DR (Aspirin) 81 Mg Tabdr 81 Mg PO DAILY Pravachol (Pravastatin) 20 Mg Tab 20 Mg PO HS Cholestyramine 4 Gm/Pkt Powd 4 Gm PO Q6HR 1 packet contains 4 grams of cholestyramine. Plavix (Clopidogrel Bisulfate) 75 Mg Tab 37.5 Mg PO DAILY Azulfidine En-Tabs (Sulfasalazine) 500 Mg Tab 500 Mg PO Q8HR Synthroid (Levothyroxine Sodium) 50 Mcg Tab 50 Mcg PO DAILY@0600 Entocort EC (Budesonide) 3 Mg Capdr 9 Mg PO DAILY Reported Edarbi (Azilsartan) 80 Mg Tab 80 Mg PO DAILY Buspirone (Buspirone HCl) 15 Mg Tab 15 Mg PO DAILY [motronazalole] 500 Mg PO [rocephine] 250 Mg IV BID Magnesium Oxide 400 Mg Tab 400 Mg PO BID [pymbalta] 60 Mg PO BID Singulair (Montelukast Sodium) 10 Mg Tab 10 Mg PO HS [mobic ] 200 Mg DAILY Current Medications Medications (Trade) Dose Ordered Sig/Hira Route Start Time Stop Time Status Last Admin (NS Flush) 2 ml UNSCH PRN IV FLUSH 06/22/17 14:15 (NS Flush) 2 ml BID IV FLUSH 06/22/17 21:00 06/25/17 08:12 (Tylenol) 650 mg Q4H PRN PO 06/22/17 14:15 (Zofran Inj) 4 mg Q6H PRN IVP 06/22/17 14:15 (Tylenol) 650 mg Q6H PRN PO 06/22/17 14:15 (Narcan Inj) 0.4 mg UNSCH PRN IV PUSH 06/22/17 14:15 (Lactinex) 1 tab Q12HR PO 06/22/17 21:00 06/22/17 21:17 (Norvasc) 5 mg DAILY PO 06/23/17 09:00 (Ecotrin Ec) 81 mg DAILY PO 06/23/17 09:00 (Pravachol) 20 mg HS PO 06/22/17 21:00 06/22/17 21:17 Patient Own Medication PT OWN MED: (Budeson... DAILY PO 06/23/17 09:00 Future Hold (D50w (Vial) Inj) 50 ml UNSCH PRN IV PUSH 06/23/17 08:30 06/23/17 10:23 (Glucagon Inj) 1 mg UNSCH PRN OTHER 06/23/17 08:30 (Questran 4 Gm Pkt) 4 gm Q6HR PO 06/23/17 12:00 (Plavix) 75 mg EVERY OTHER DAY PO 06/23/17 09:00 (Azulfidine Ec) 500 mg Q8HR PO 06/23/17 14:00 ([place] 5-325 Mg) 1 tab Q4H PRN PO 06/23/17 10:15 ([place] 7.5-325 Mg) 1 tab Q4H PRN PO 06/23/17 10:15 (Heparin Inj) 5,000 units Q12HR SQ 06/23/17 21:00 06/25/17 08:10 (Morphine Inj) 1 mg Q3H PRN IV PUSH 06/24/17 10:00 06/25/17 08:11 (Morphine Inj) 2 mg Q3H PRN IV PUSH 06/24/17 10:00 (Morphine Inj) 2 mg Q3H PRN IV PUSH 06/24/17 10:00 Potassium Chloride 20 meq/ Sodium Chloride 38.5 meq/Sodium Bicarbonate 100 meq/Sterile Water 1,000 ml @ 125 mls/hr Q8H PRN IV 06/24/17 11:00 Potassium Chloride 20 meq/ Sodium Bicarbonate 100 meq/Dextrose/ Sodium Chloride 1,000 ml @ 125 mls/hr Q8H IV 06/24/17 11:00 06/25/17 10:54 Metronidazole 100 ml @ 100 mls/hr Q6H IV 06/24/17 16:00 06/25/17 08:11 (Pepcid Inj) 10 mg Q12H IV PUSH 06/25/17 06:00 06/25/17 06:41 (Synthroid Inj) 25 mcg DAILY@06 IV PUSH 06/25/17 06:00 06/25/17 06:41 Fluconazole/ Sodium Chloride 50 ml @ 50 mls/hr Q24H IV 06/26/17 10:00 07/05/17 09:59 Potassium Chloride 100 ml @ 50 mls/hr ONCE ONCE IV 06/25/17 10:45 06/25/17 12:44 06/25/17 10:54 Family History mother- kidney failure, [place] sister- lupus brother- rheumatic fever Substance Use Tobacco: smoke one pack per day. Alcohol: was a heavy drinker at young age, stopped drinking 30 years ago Prescription med abuse: none. Illicits: done. . Psychosocial History Single. Was previously in rehab. Has one daughter who is currently in longterm, expected to be released on 07/01/17. Also has a brother and sister. . Spiritual/Cultural Factors Judaism conner. . Living Will: Never completed Health Care Surrogate: Never completed Durable Power of Performance Tester: Never completed Health Care Surrogate(s): Patient is confused, unable to participate in making her own health care decisions at this time. Uncertain if she will regain capacity. According to [place] statutes, health care proxy decision-making falls to majority of adult children. Patient has one daughter, Priti Salinas. . Today's verbally stated goals: Patient currently incapacitated, uncertain if she will regain capacity. . Family/friends goals: Daughter wants to serve as healthcare proxy decision maker. Goals remain aggressive short of NO CODE at this time. Daughter is expected to be released from longterm on 07/01/17 and hopes that her mother will survive until she is able to see her in person. . Ethical and Legal Issues Patient is confused, unable to participate in making her own health care decisions at this time. Uncertain if she will regain capacity. According to [place] statutes, health care proxy decision-making falls to majority of adult children. Patient has one daughter, Priti Salinas. . Physical Exam Vital Signs Date Time Temp Pulse Resp B/P (MAP) Pulse Ox O2 Delivery O2 Flow Rate FiO2 06/25/17 10:00 104 06/25/17 09:00 100 06/25/17 08:16 18 06/25/17 08:00 106 06/25/17 08:00 98.6 106 27 111/67 (82) 91 06/25/17 07:00 Room Air 06/25/17 04:00 98.6 94 19 113/60 (77) 97 06/25/17 00:00 98.2 97 20 106/68 (81) 97 06/24/17 20:00 97.7 96 23 110/63 (79) 95 06/24/17 19:00 Room Air 06/24/17 18:00 95 06/24/17 16:00 97.4 109 18 101/61 (74) 100 06/24/17 16:00 99 06/24/17 14:00 101 06/24/17 12:00 94 06/24/17 12:00 96.5 99 18 103/56 (72) 99 06/25/17 06/26/17 19:00 07:00 Intake Total 100 ml Balance 100 ml IV Total 100 ml Exam CONSTITUTIONAL/GENERAL: This is an elderly, frail female, lethargic, confused. SKIN: No jaundice, rashes, or lesions. Ecchymoses on upper extremities. No wounds seen anteriorly. Skin temperature appropriate. Not diaphoretic. HEAD: Atraumatic. Normocephalic. EYES: eyes closed. ENT: Hearing grossly normal. Nose without bleeding or purulent drainage. Poor dentition. NECK: Trachea midline. Supple, nontender. No palpable thyroid enlargement or nodularity. CARDIOVASCULAR: Regular rate and rhythm without murmurs, gallops, or rubs. RESPIRATORY/CHEST: Symmetric, unlabored respirations. Clear to auscultation. Decreased Breath sounds bilaterally. GASTROINTESTINAL: Abdomen soft, non-tender, nondistended. No guarding. Bowel sounds hypoactive. GENITOURINARY: Without palpable bladder distension. MUSCULOSKELETAL: Extremities without clubbing, cyanosis, or edema. No mottling or clubbing. LYMPHATICS: No palpable cervical or supraclavicular adenopathy. NEUROLOGICAL: Awakens, lethargic, confused. Parrots most of what I'm saying. Moves all extremities. PSYCHIATRIC: confused. . Diagnostic Tests Laboratory Laboratory Tests Test 06/22/17 12:25 06/22/17 12:30 06/22/17 23:20 06/23/17 07:40 Urine Color YELLOW (YELLW/STRAW) Urine Turbidity CLOUDY (CLEAR) Urine pH 5.5 (5.0-8.5) Urine Specific [place] 1.018 (1.002-1.035) Urine Protein 100 mg/dL (NEG-TRACE) Urine Glucose (UA) NEG mg/dL (NEG) Urine Ketones TRACE mg/dL (NEG) Urine Occult Blood MOD (NEG) Urine Nitrite NEG (NEG) Urine Bilirubin NEG (NEG) Urine Urobilinogen LESS THAN 2.0 MG/DL (LESS Urine Leukocyte Esterase LARGE (NEG) Urine RBC 25 /hpf (0-3) Urine WBC /hpf (0-5) Urine WBC Clumps FEW (NONE) Urine Bacteria MOD /hpf (NONE) Urine Yeast (Budding) MANY (NONE) Microscopic Urinalysis Comment CATH-CULTURE IND White Blood Count 17.2 TH/MM3 (4.0-11.0) 12.2 TH/MM3 (4.0-11.0) Red Blood Count 4.14 MIL/MM3 (4.00-5.30) 3.72 MIL/MM3 (4.00-5.30) Hemoglobin 9.4 GM/DL (11.6-15.3) 8.9 GM/DL (11.6-15.3) Hematocrit 32.7 % (35.0-46.0) 28.6 % (35.0-46.0) Mean Corpuscular Volume 78.8 FL (80.0-100.0) 77.0 FL (80.0-100.0) Mean Corpuscular Hemoglobin 22.6 PG (27.0-34.0) 24.0 PG (27.0-34.0) Mean Corpuscular Hemoglobin Concent 28.7 % (32.0-36.0) 31.2 % (32.0-36.0) Red Cell Distribution Width 22.5 % (11.6-17.2) 22.6 % (11.6-17.2) Platelet Count 259 TH/MM3 (150-450) 201 TH/MM3 (150-450) Mean Platelet Volume 6.6 FL (7.0-11.0) 8.4 FL (7.0-11.0) Neutrophils (%) (Auto) 89.8 % (16.0-70.0) 82.3 % (16.0-70.0) Lymphocytes (%) (Auto) 4.3 % (9.0-44.0) 5.3 % (9.0-44.0) Monocytes (%) (Auto) 5.5 % (0.0-8.0) 11.9 % (0.0-8.0) Eosinophils (%) (Auto) 0.1 % (0.0-4.0) 0.2 % (0.0-4.0) Basophils (%) (Auto) 0.3 % (0.0-2.0) 0.3 % (0.0-2.0) Neutrophils # (Auto) 15.4 TH/MM3 (1.8-7.7) 10.1 TH/MM3 (1.8-7.7) Lymphocytes # (Auto) 0.7 TH/MM3 (1.0-4.8) 0.6 TH/MM3 (1.0-4.8) Monocytes # (Auto) 0.9 TH/MM3 (0-0.9) 1.5 TH/MM3 (0-0.9) Eosinophils # (Auto) 0.0 TH/MM3 (0-0.4) 0.0 TH/MM3 (0-0.4) Basophils # (Auto) 0.0 TH/MM3 (0-0.2) 0.0 TH/MM3 (0-0.2) CBC Comment AUTO DIFF DIFF FINAL Differential Total Cells Counted 100 Neutrophils % (Manual) 84 % (16-70) Band Neutrophils % 11 % (0-6) Lymphocytes % 4 % (9-44) Monocytes % 1 % (0-8) Neutrophils # (Manual) 16.3 TH/MM3 (1.8-7.7) Nucleated Red Blood Cells 3 /100 WBC (0-0) Differential Comment FINAL DIFF MANUAL Platelet Estimate NORMAL (NORMAL) Platelet Morphology Comment NORMAL (NORMAL) Prothrombin Time 10.2 SEC (9.8-11.6) Prothromb Time International Ratio 1.0 RATIO Activated Partial Thromboplast Time 33.1 SEC (24.3-30.1) Blood Urea Nitrogen 19 MG/DL (7-18) 20 MG/DL (7-18) Creatinine 4.19 MG/DL (0.50-1.00) 4.12 MG/DL (0.50-1.00) Random Glucose 151 MG/DL (74-106) 38 MG/DL (74-106) Total Protein 5.3 GM/DL (6.4-8.2) 4.4 GM/DL (6.4-8.2) Albumin 2.6 GM/DL (3.4-5.0) 1.9 GM/DL (3.4-5.0) Calcium Level 8.7 MG/DL (8.5-10.1) 8.0 MG/DL (8.5-10.1) Alkaline Phosphatase 108 U/L (45-117) 107 U/L (45-117) Aspartate Amino Transf (AST/SGOT) 16 U/L (15-37) 17 U/L (15-37) Alanine Aminotransferase (ALT/SGPT) 9 U/L (10-53) 9 U/L (10-53) Total Bilirubin 0.3 MG/DL (0.2-1.0) 0.3 MG/DL (0.2-1.0) Sodium Level 141 MEQ/L (136-145) 149 MEQ/L (136-145) Potassium Level 3.2 MEQ/L (3.5-5.1) 2.4 MEQ/L (3.5-5.1) Chloride Level 121 MEQ/L (98-107) 127 MEQ/L (98-107) Carbon Dioxide Level 8.8 MEQ/L (21.0-32.0) 9.8 MEQ/L (21.0-32.0) Anion Gap 11 MEQ/L (5-15) 12 MEQ/L (5-15) Estimat Glomerular Filtration Rate 10 ML/MIN (>89) 11 ML/MIN (>89) Lactic Acid Level 0.9 mmol/L (0.4-2.0) Stool C. difficile Toxin (PCR) NEGATIVE (NEGATIVE) Stl C. difficile Toxin Epiderm 027 PRESUMPTIVE NEGATIVE Magnesium Level 2.3 MG/DL (1.5-2.5) Test 06/23/17 07:41 06/23/17 15:20 06/23/17 21:38 06/24/17 06:28 Total Creatine Kinase 36 U/L (26-192) Urine Eosinophils NONE SEEN /HPF (NONE SEEN) Urine Osmolality 261 MOSM/KG (300-1300) Urine Random Sodium 73 MEQ/L Urine Random Potassium 14 MEQ/L Blood Urea Nitrogen 20 MG/DL (7-18) 20 MG/DL (7-18) Creatinine 4.23 MG/DL (0.50-1.00) 4.24 MG/DL (0.50-1.00) Random Glucose 74 MG/DL (74-106) 85 MG/DL (74-106) Calcium Level 8.2 MG/DL (8.5-10.1) 8.7 MG/DL (8.5-10.1) Magnesium Level 2.3 MG/DL (1.5-2.5) 2.2 MG/DL (1.5-2.5) Sodium Level 150 MEQ/L (136-145) 153 MEQ/L (136-145) Potassium Level 3.1 MEQ/L (3.5-5.1) 3.6 MEQ/L (3.5-5.1) Chloride Level 130 MEQ/L (98-107) 131 MEQ/L (98-107) Carbon Dioxide Level 10.3 MEQ/L (21.0-32.0) 14.7 MEQ/L (21.0-32.0) Anion Gap 10 MEQ/L (5-15) 7 MEQ/L (5-15) Estimat Glomerular Filtration Rate 10 ML/MIN (>89) 10 ML/MIN (>89) White Blood Count 13.7 TH/MM3 (4.0-11.0) Red Blood Count 3.87 MIL/MM3 (4.00-5.30) Hemoglobin 9.1 GM/DL (11.6-15.3) Hematocrit 29.0 % (35.0-46.0) Mean Corpuscular Volume 74.8 FL (80.0-100.0) Mean Corpuscular Hemoglobin 23.6 PG (27.0-34.0) Mean Corpuscular Hemoglobin Concent 31.5 % (32.0-36.0) Red Cell Distribution Width 22.6 % (11.6-17.2) Platelet Count 246 TH/MM3 (150-450) Mean Platelet Volume 6.6 FL (7.0-11.0) Neutrophils (%) (Auto) 80.6 % (16.0-70.0) Lymphocytes (%) (Auto) 8.0 % (9.0-44.0) Monocytes (%) (Auto) 10.6 % (0.0-8.0) Eosinophils (%) (Auto) 0.7 % (0.0-4.0) Basophils (%) (Auto) 0.1 % (0.0-2.0) Neutrophils # (Auto) 11.1 TH/MM3 (1.8-7.7) Lymphocytes # (Auto) 1.1 TH/MM3 (1.0-4.8) Monocytes # (Auto) 1.5 TH/MM3 (0-0.9) Eosinophils # (Auto) 0.1 TH/MM3 (0-0.4) Basophils # (Auto) 0.0 TH/MM3 (0-0.2) CBC Comment DIFF FINAL Differential Comment Test 06/25/17 07:06 White Blood Count 9.7 TH/MM3 (4.0-11.0) Red Blood Count 3.89 MIL/MM3 (4.00-5.30) Hemoglobin 9.0 GM/DL (11.6-15.3) Hematocrit 29.0 % (35.0-46.0) Mean Corpuscular Volume 74.6 FL (80.0-100.0) Mean Corpuscular Hemoglobin 23.3 PG (27.0-34.0) Mean Corpuscular Hemoglobin Concent 31.2 % (32.0-36.0) Red Cell Distribution Width 22.4 % (11.6-17.2) Platelet Count 278 TH/MM3 (150-450) Mean Platelet Volume 6.5 FL (7.0-11.0) Neutrophils (%) (Auto) 71.0 % (16.0-70.0) Lymphocytes (%) (Auto) 12.8 % (9.0-44.0) Monocytes (%) (Auto) 14.0 % (0.0-8.0) Eosinophils (%) (Auto) 1.7 % (0.0-4.0) Basophils (%) (Auto) 0.5 % (0.0-2.0) Neutrophils # (Auto) 6.9 TH/MM3 (1.8-7.7) Lymphocytes # (Auto) 1.2 TH/MM3 (1.0-4.8) Monocytes # (Auto) 1.3 TH/MM3 (0-0.9) Eosinophils # (Auto) 0.2 TH/MM3 (0-0.4) Basophils # (Auto) 0.0 TH/MM3 (0-0.2) CBC Comment DIFF FINAL Differential Comment Blood Urea Nitrogen 21 MG/DL (7-18) Creatinine 3.94 MG/DL (0.50-1.00) Random Glucose 95 MG/DL (74-106) Calcium Level 8.2 MG/DL (8.5-10.1) Magnesium Level 2.0 MG/DL (1.5-2.5) Sodium Level 152 MEQ/L (136-145) Potassium Level 3.4 MEQ/L (3.5-5.1) Chloride Level 126 MEQ/L (98-107) Carbon Dioxide Level 20.5 MEQ/L (21.0-32.0) Anion Gap 6 MEQ/L (5-15) Estimat Glomerular Filtration Rate 11 ML/MIN (>89) Result Diagram: 06/25/17 0706 06/25/17 0706 Microbiology Microbiology Date/Time Source Procedure Growth Status 06/22/17 12:30 Blood Peripheral Aerobic Blood Culture - Preliminary NO GROWTH IN 2 DAYS Resulted 06/22/17 12:30 Blood Peripheral Anaerobic Blood Culture - Preliminary NO GROWTH IN 2 DAYS Resulted 06/22/17 12:30 Blood Peripheral Aerobic Blood Culture - Preliminary NO GROWTH IN 2 DAYS Resulted 06/22/17 12:30 Blood Peripheral Anaerobic Blood Culture - Preliminary NO GROWTH IN 2 DAYS Resulted 06/22/17 12:25 Urine Catheterized Urine Urine Culture - Final Mana Tropicalis Complete Imaging Last Impressions Gall Bladder Ultrasound 06/23/17 0000 Signed Impressions: Service Date/Time: Friday, June 23, 2017 14:13 - CONCLUSION: Gallbladder is quite distended. A small right pleural effusion. Pacheco Che MD Head CT 06/22/17 1152 Signed Impressions: Service Date/Time: Thursday, June 22, 2017 13:03 - CONCLUSION: 1. Senescent changes without acute intracranial abnormality. Clinton Walter MD Chest X-Ray 06/22/17 1152 Signed Impressions: Service Date/Time: Thursday, June 22, 2017 12:39 - CONCLUSION: 1. Platelike bilateral lower lung zone airspace disease consistent with atelectasis. Clinton Walter MD Abdomen/Pelvis CT 06/22/17 0000 Signed Impressions: Service Date/Time: Thursday, June 22, 2017 14:44 - CONCLUSION: 1. Diffusely fluid-filled slightly prominent colon without significant colonic wall thickening. Although nonspecific, findings likely reflect enteritis. Although less likely, very early infectious colitis cannot be excluded. 2. Significantly distended gallbladder without significant biliary ductal dilatation. This may be due to prolonged fasting. Clinical correlation is recommended. Consider ultrasound examination if there is significant continued clinical concern. 3. Mild patchy airspace disease at the left lung base, presumably atelectasis. 4. Very minimal trace bilateral pleural effusions. Clinton Walter MD Patient/Family Conference Present at Family Conference: 10:15 AM: lengthy conversation with daughter via telephone through the [facility]. Medical update provided. Daughter wishes to serve as healthcare proxy decision maker. She desires continued aggressive care short of NO CODE. Daughter is upset with the condition of her mother and hopes that her mother can survive until she is released from longterm on 05/01/17. . Family Conference Time (mins): 30 Family Conference Location: Telephone Issues Discussed: * Palliative care role, purpose, approach * Additional medical, psychosocial, and spiritual history * Patients general health, functional status, and cognitive changes in the months leading up to the current hospitalization * Patient/family understanding of the current medical problems * Patient/family understanding of prognosis * Patients goals of care as best understood from advance directives and/or conversations and/or values * Current medical treatment options and benefits/burdens of those options * Likely scenarios comparing ongoing aggressive care with a transition to comfort measures only * Questions answered to the best of my ability * Palliative care contact information provided 10:15 AM: lengthy conversation with daughter via telephone through the [facility]. Medical update provided. Daughter wishes to serve as healthcare proxy decision maker. She desires continued aggressive care short of NO CODE. Daughter is upset with the condition of her mother and hopes that her mother can survive until she is released from longterm on 05/01/17. Assessment and Plan Disease Oriented Problem List: (1) Acute kidney injury (2) Metabolic encephalopathy (3) Sepsis (4) Altered mental status (5) UTI (urinary tract infection) Symptom Scale: (1) Pain 0-10 Scale: Unable to quantify (2) Altered mental status 0-10 Scale: Unable to quantify Pertinent Non-Medical Issues Psychosocial: single. Supported by her siblings and her daughter. Daughter is currently incarcerated, expected to be released on 07/01/17. Spiritual: Judaism conner. Legal:Patient is confused, unable to participate in making her own health care decisions at this time. Uncertain if she will regain capacity. According to [place] statutes, health care proxy decision-making falls to majority of adult children. Patient has one daughter, Priti Salinas. Ethical issues impacting care: no known concerns at this time. . Important Contacts * Priti Jaimes, daughter/HCP: currently incarcerated can be reached during the daytime hours through Crist[facility] Jennings ([phone] ext [phone]) trimming caser with the longterm. After hours at [phone]. * half-sister, Alexy Hsieh ([phone]). * brother in [place], Elijah Middleton #[phone] . Prognosis Ms. Middleton is a 71-year-old female with sepsis, metabolic encephalopathy, recurrent colitis, renal failure and trajectory of decline over the past few months. She remains in ICU, critically ill. Is it is unclear if she will survive this hospitalization, she remains high risk for worsening condition . Code Status: No Code Plan * Decision Maker: Patient is confused, unable to participate in making her own health care decisions at this time. Uncertain if she will regain capacity. According to [place] statutes, health care proxy decision-making falls to majority of adult children. Patient has one daughter, Priti Salinas who is willing to serve as healthcare proxy decision maker. She is currently incarcerated can be reached after hours at [facility] longterm [phone]. * NO CODE - DNR/DNI * Palliative care: spoke with daughter via telephone. Daughter wants to serve as healthcare proxy decision maker. Goals remain aggressive short of NO CODE at this time. Daughter is expected to be released from longterm on 07/01/17 and hopes that her mother will survive until she is able to see her in person. * SYMPTOMS: Pain: patient denies pain during my visit. Potential sources of pain may include bedbound status, nutritional and functional decline. Will monitor. Encephalopathy: likely multifactorial including metabolic encephalopathy, renal failure. Will monitor. Debility: patient remains confused, bedbound. * Palliative care number provided. * Palliative care will continue to follow throughout hospital course to assist with symptom management and clarification of goals as needed. Thank you for the opportunity to participate in the care of Ms. Middleton. Attestation To help prompt me to consider important information that might be impacting today's encounter and assessment, information from prior notes written by myself or my colleagues may have been "brought forward" into today's note. My signature on this note, however, is an attestation that I personally performed the exam, history, and/or decision-making noted today, and, unless otherwise indicated, the interactions with patient, family, and staff as well as the review of records all occurred today. I also attest that the listed assessment and stated plan reflect my best clinical judgment today based on the combination of historical information, prior notes, and today's exam/ interactions. When time spent is documented, it refers only to time spent today by the signer, or if indicated, combined time spent today by collaborating physician/nurse practitioner. Bindu Coleman Jun 25, 2017 11:29
--- NOTE | 2017-06-25 12:28 | PD.CONS ---
HPI History of Present Illness This is a 71 year old female who presented with SONIA, hypokalemia and continued severe diarrhea. She is currently NPO for failing bedside swallow and is refusing NGT. She was diagnosed with collagenous colitis via colonoscopy in the beginning of May at [facility], given steroid taper and sulfasalazine. Has daughter who will be released from incarceration 07/01, has made pt a DNR and wants aggressive care for now. Pt unable to provide hx. Hx obtained from nursing staff, EMR. (Connie Nicholson) PFSH Past Medical History hrn cad- stent- 2yrs ago takes plavix 37.5mg by Dr Karly Isaac hepatiits B - pt said it was treated was a heavy drinker at young age, havent drunk in 30yrs hx of UTIs CVA- 3 yrs ago , no residual Hypothyroidism Summary of [facility] hospitalization course: April 21, 2017 to April 30, 2017 hospital stay collagenous colitis- at 04/21/17 hospital admission Positive occult blood stool. Negative blood cultures. Patient was treated with IV Flagyl and Cipro. Hemoglobin was 7.6. Status post 1 unit of PRBC. Escherichia coli UTI Past Surgical History Coronary angiogram and stenting Colonoscopy Hysterectomy Appendectomy Tonsillectomy (Connie Nicholson) Coded Allergies: diatrizoate meglumine (Unverified Adverse Reaction, Unknown, KIDNEY FUNCTION CHANGES, 05/17/17) gadobenic acid (Unverified Adverse Reaction, Unknown, KIDNEY FUNCTION CHANGES, 05/17/17) gadodiamide (Unverified Adverse Reaction, Unknown, KIDNEY FUNCTION CHANGES , 05/17/17) gadoteridol (Unverified Adverse Reaction, Unknown, KIDNEY FUNCTION CHANGES , 05/17/17) iodixanol (Unverified Adverse Reaction, Unknown, KIDNEY FUNCTION CHANGES, 05/17/17) iohexol (Unverified Adverse Reaction, Unknown, KIDNEY FUNCTION CHANGES, ) Family History mother- kidney failure, [place] sister- lupus brother- rheumatic fever Social History Alcohol Use: No Tobacco Use: Yes (1PPD) Substance Use: No (Connie Nicholson) Review of Systems ROS noncontributory (Connie Nicholson) GI Exam Vitals I&O Vital Signs Date Time Temp Pulse Resp B/P (MAP) Pulse Ox O2 Delivery O2 Flow Rate FiO2 06/25/17 10:00 104 06/25/17 09:00 100 06/25/17 08:16 18 06/25/17 08:00 106 06/25/17 08:00 98.6 106 27 111/67 (82) 91 06/25/17 07:00 Room Air 06/25/17 04:00 98.6 94 19 113/60 (77) 97 06/25/17 00:00 98.2 97 20 106/68 (81) 97 06/24/17 20:00 97.7 96 23 110/63 (79) 95 06/24/17 19:00 Room Air 06/24/17 18:00 95 06/24/17 16:00 97.4 109 18 101/61 (74) 100 06/24/17 16:00 99 06/24/17 14:00 101 I/O 06/24/17 06/24/17 06/24/17 06/25/17 06/25/17 06/25/17 06:59 14:59 22:59 06:59 14:59 22:59 Intake Total 1500 ml 1947 ml 1464 ml 300 ml Output Total 100 ml 300 ml 775 ml Balance 1400 ml 1647 ml 689 ml 300 ml Intake Oral 0 ml 0 ml 0 ml IV Total 1500 ml 1947 ml 1464 ml 300 ml Output Urine Total 100 ml 200 ml 175 ml Stool Total 100 ml 600 ml # Bowel Movements 3 4 Imaging Last Impressions Gall Bladder Ultrasound 06/23/17 0000 Signed Impressions: Service Date/Time: Friday, June 23, 2017 14:13 - CONCLUSION: Gallbladder is quite distended. A small right pleural effusion. Pacheco Che MD Head CT 06/22/17 1152 Signed Impressions: Service Date/Time: Thursday, June 22, 2017 13:03 - CONCLUSION: 1. Senescent changes without acute intracranial abnormality. Clinton Walter MD Chest X-Ray 06/22/17 1152 Signed Impressions: Service Date/Time: Thursday, June 22, 2017 12:39 - CONCLUSION: 1. Platelike bilateral lower lung zone airspace disease consistent with atelectasis. Clinton Walter MD Abdomen/Pelvis CT 06/22/17 0000 Signed Impressions: Service Date/Time: Thursday, June 22, 2017 14:44 - CONCLUSION: 1. Diffusely fluid-filled slightly prominent colon without significant colonic wall thickening. Although nonspecific, findings likely reflect enteritis. Although less likely, very early infectious colitis cannot be excluded. 2. Significantly distended gallbladder without significant biliary ductal dilatation. This may be due to prolonged fasting. Clinical correlation is recommended. Consider ultrasound examination if there is significant continued clinical concern. 3. Mild patchy airspace disease at the left lung base, presumably atelectasis. 4. Very minimal trace bilateral pleural effusions. Clinton Walter MD Laboratory Test 06/25/17 07:06 White Blood Count 9.7 TH/MM3 Red Blood Count 3.89 MIL/MM3 Hemoglobin 9.0 GM/DL Hematocrit 29.0 % Mean Corpuscular Volume 74.6 FL Mean Corpuscular Hemoglobin 23.3 PG Mean Corpuscular Hemoglobin Concent 31.2 % Red Cell Distribution Width 22.4 % Platelet Count 278 TH/MM3 Mean Platelet Volume 6.5 FL Neutrophils (%) (Auto) 71.0 % Lymphocytes (%) (Auto) 12.8 % Monocytes (%) (Auto) 14.0 % Eosinophils (%) (Auto) 1.7 % Basophils (%) (Auto) 0.5 % Neutrophils # (Auto) 6.9 TH/MM3 Lymphocytes # (Auto) 1.2 TH/MM3 Monocytes # (Auto) 1.3 TH/MM3 Eosinophils # (Auto) 0.2 TH/MM3 Basophils # (Auto) 0.0 TH/MM3 CBC Comment DIFF FINAL Differential Comment Blood Urea Nitrogen 21 MG/DL Creatinine 3.94 MG/DL Random Glucose 95 MG/DL Calcium Level 8.2 MG/DL Magnesium Level 2.0 MG/DL Sodium Level 152 MEQ/L Potassium Level 3.4 MEQ/L Chloride Level 126 MEQ/L Carbon Dioxide Level 20.5 MEQ/L Anion Gap 6 MEQ/L Estimat Glomerular Filtration Rate 11 ML/MIN Date/Time Source Procedure Growth Status 06/22/17 12:30 Blood Peripheral Aerobic Blood Culture - Preliminary NO GROWTH IN 3 DAYS Resulted 06/22/17 12:30 Blood Peripheral Anaerobic Blood Culture - Preliminary NO GROWTH IN 3 DAYS Resulted 06/22/17 12:25 Urine Catheterized Urine Urine Culture - Final Monica Tropicalis Complete Physical Examination HEENT: normocephalic; atraumatic; no jaundice. CHEST: coarse CARDIAC: RRR ABDOMEN: Soft, nondistended, nontender; no hepatosplenomegaly; bowel sounds are present in all four quadrants. EXTREMITIES: No clubbing, cyanosis, or edema. SKIN: Normal; no rash; no jaundice. WRAPPER SIZER: uncooperative, combative (Connie Nicholson) Assessment and Plan Plan - diarrhea - likely Collagenous Colitis, recurrent. Recent hospitalization at [facility] with Colonoscopy. Patient was discharged with steroid taper and Sulfasalazine. Stool studies previous admission neg. 06/22 c diff neg. Will repeat stool studies. has cholestyramine, sulfasalazine ordered but refusing NGT palliative care following,awaiting mtg with pts daughter - anemia - hypochromic, microcytic HH relatively stable PLAN - attempt NGT - await palliative care follow up, daughter's visit - repeat stool studies - supportive care - further recs to follow This pt seen by myself and DR Robbins and this note is written on his behalf (Connie Nicholson) Physician Comments Agree with plan as above, will need to start meds via NGT, will follow up with you. (Kayli Robbins MD) Connie Nicholson Jun 25, 2017 12:28 Kayli Robbins MD Jun 25, 2017 14:17
--- NOTE | 2017-06-25 17:01 | HHI.NPPN ---
Subjective History of Present Illness 71-year-old female with past medical history of hypertension, ischemic heart disease, history of hepatitis B, history of alcoholism in the past, cerebrovascular accident, hypothyroidism who was transferred here from the nursing facility because of altered mental status and diarrhea. I was called to see the patient because of very high BUN and creatinine. Additional Remarks Patient is more alert, remain confused, not in distress. Objective Data Data 06/25/17 06/26/17 19:00 07:00 Intake Total 300 ml Balance 300 ml IV Total 300 ml Vital Signs Date Time Temp Pulse Resp B/P (MAP) Pulse Ox O2 Delivery O2 Flow Rate FiO2 06/25/17 16:00 98.9 92 18 138/91 (107) 93 06/25/17 16:00 92 06/25/17 14:00 98 06/25/17 14:00 98 06/25/17 12:00 98.4 104 20 140/67 (91) 95 06/25/17 12:00 104 06/25/17 10:00 104 06/25/17 09:00 100 06/25/17 08:16 18 06/25/17 08:00 106 06/25/17 08:00 98.6 106 27 111/67 (82) 91 06/25/17 07:00 Room Air 06/25/17 04:00 98.6 94 19 113/60 (77) 97 06/25/17 00:00 98.2 97 20 106/68 (81) 97 06/24/17 20:00 97.7 96 23 110/63 (79) 95 06/24/17 19:00 Room Air 06/24/17 18:00 95 -: 06/25/17 0706 06/25/17 0706 Physical Exam General Appearance: Anxious Appearance Remarks Awake, remain confused. Eyes Eye Exam: Pupils Equal Neck Neck Exam: Neck Supple Pulmonary Resp Exam: Breath Sounds Equal, No Distress, Rhonchi, Decreased Bases Cardiology CV Exam: Regular, Normal Sinus Rhythm Gastrointestinal/Abdomen GI Exam: Soft, Non-Tender, Bowel Sounds Present Extremeties Extremities Exam: No Edema Neurologic Neuro Exam: Alert Assessment/Plan Assessment Summary: SONIA/Acute Renal Failure Problem List: (1) Anemia ICD Codes: D64.9 - Anemia, unspecified (2) Altered mental status ICD Codes: R41.82 - Altered mental status, unspecified Status: Acute (3) Metabolic encephalopathy ICD Codes: G93.41 - Metabolic encephalopathy (4) Low bicarbonate level ICD Codes: E87.8 - Other disorders of electrolyte and fluid balance, not elsewhere classified Status: Acute (5) Diarrhea ICD Codes: R19.7 - Diarrhea, unspecified Status: Acute (6) Hypothermia ICD Codes: T68.XXXA - Hypothermia, initial encounter Status: Acute (7) Acute kidney injury ICD Codes: N17.9 - Acute kidney failure, unspecified Status: Acute Plan Patient has Acute kidney injury. Urine Na. is low and Eosinophils is negative. BP is better, Continue IVF with NaHco3. Urine out put is low. Most likely has ATN. Creatinine is slightly better. Urine out put is still low. No urgent need for Dialysis. Continue IVF, Avoid Nephrotoxins. Problem Qualifiers (1) Anemia: Qualified Codes: D64.9 - Anemia, unspecified (2) Altered mental status: Qualified Codes: R41.82 - Altered mental status, unspecified (3) Diarrhea: Qualified Codes: R19.7 - Diarrhea, unspecified (4) Hypothermia: Qualified Codes: T68.XXXA - Hypothermia, initial encounter Javid Benson MD Jun 25, 2017 17:01
[2017-06-25] MEDS: PRAVASTATIN SOD 20 MG TAB PO SCH (20:11)
[2017-06-26] VITALS (10 sets, daily range): BP systolic 126–152; BP diastolic 64–71; PULSE 89–107; RESP 18–22; TEMP 98.2–98.9; O2SAT 92–96
[2017-06-26] MEDS: SODIUM BICARB IV SCH (03:50)
[2017-06-26] MEDS: [UNRECOGNIZED DRUG - OTHER] IV SCH (03:50)
[2017-06-26] MEDS: sulfaSALAzine EC 500 MG TABEC PO SCH (03:50)
[2017-06-26] MEDS: metroNIDAZOLE 500 MG INJ 100 ML IV SCH ×2 (03:50→09:00)
[2017-06-26] MEDS: POTASSIUM CHLORIDE IV SCH (03:50)
[2017-06-26] MEDS: LEVOTHYROXINE SODIUM 100 MCG VIAL IV PUSH SCH (04:22)
[2017-06-26] MEDS: FAMOTIDINE 20 MG/2 ML VIAL IV PUSH SCH ×2 (04:22→18:11)
[2017-06-26] MEDS: CHOLESTYRAMINE 4 GM PACKET PO SCH (04:22)
[2017-06-26 05:57] LABS: BICARBONATE 24.3 MEQ/L (21.0-32.0); MAGNESIUM 1.6 MG/DL (1.5-2.5); POTASSIUM 3.5 MEQ/L (3.5-5.1)
[2017-06-26] MEDS ORDERED: sulfaSALAzine EC 500 MG TABEC SCH (06:00)
[2017-06-26] MEDS ORDERED: ACETAMINOPHEN 325 MG TAB NG PRN ×2 (06:15→08:15)
[2017-06-26] MEDS ORDERED: POTASSIUM CHLORIDE 25 MEQ EFFERVESCENT TAB PO ONE (06:15)
[2017-06-26] MEDS: sulfaSALAzine 500 MG TAB NG SCH ×3 (06:30→20:42)
[2017-06-26] MEDS: CHOLESTYRAMINE 4 GM PACKET NG SCH ×3 (08:56→18:11)
[2017-06-26] MEDS: ASPIRIN 81 MG CHEW TAB NG SCH (08:57)
[2017-06-26] MEDS: HEPARIN SODIUM - SQ 10,000 UNITS/ML VIAL SQ SCH ×2 (08:57→20:41)
[2017-06-26] MEDS: amLODIPine BESYLATE 5 MG TAB NG SCH (08:57)
[2017-06-26] MEDS: LEVOTHYROXINE SODIUM 50 MCG TAB PO SCH (08:57)
[2017-06-26] MEDS: LACTOBACILLUS ACIDOPHILUS TAB NG SCH ×2 (08:59→20:41)
[2017-06-26] MEDS ORDERED: BUDESONIDE 9 MG NG SCH (09:00)
[2017-06-26] MEDS: SODIUM CHLORIDE 0.9% FLUSH 10 ML FLUSH IV FLUSH SCH ×2 (09:00→20:41)
--- NOTE | 2017-06-26 09:46 | HHI.PR ---
Subjective Remarks Follow-up encephalopathy, acute kidney injury and colitis. She is more awake and oriented. She wants to get better agrees with current management. Nonoliguric but continues to have significant volume of stools. Denies abdominal pain. Objective Vitals Vital Signs Date Time Temp Pulse Resp B/P (MAP) Pulse Ox O2 Delivery O2 Flow Rate FiO2 06/26/17 08:00 89 06/26/17 07:00 Room Air 06/26/17 04:00 98.2 107 22 132/67 (88) 93 06/26/17 00:00 98.4 100 18 128/64 (85) 94 06/25/17 20:00 99.1 111 19 155/68 (97) 94 06/25/17 19:00 Room Air 06/25/17 18:00 109 06/25/17 16:00 98.9 92 18 138/91 (107) 93 06/25/17 16:00 92 06/25/17 14:00 98 06/25/17 14:00 98 06/25/17 12:00 98.4 104 20 140/67 (91) 95 06/25/17 12:00 104 06/25/17 10:00 104 I/O 06/25/17 06/25/17 06/25/17 06/26/17 06/26/17 06/26/17 07:00 15:00 23:00 07:00 15:00 23:00 Intake Total 1664 ml 300 ml 1689 ml 1253 ml Output Total 775 ml 1720 ml 950 ml Balance 889 ml 300 ml -31 ml 303 ml Intake Oral 0 ml 0 ml IV Total 1664 ml 300 ml 1689 ml 1233 ml Tube Feeding 20 ml Output Urine Total 175 ml 300 ml 250 ml Stool Total 600 ml 1400 ml 700 ml Gastric Drainage Total 20 ml 0 ml # Bowel Movements 3 Result Diagram: 06/25/17 0706 06/26/17 0415 Imaging Last Impressions Gall Bladder Ultrasound 06/23/17 0000 Signed Impressions: Service Date/Time: Friday, June 23, 2017 14:13 - CONCLUSION: Gallbladder is quite distended. A small right pleural effusion. Pacheco Che MD Head CT 06/22/17 1152 Signed Impressions: Service Date/Time: Thursday, June 22, 2017 13:03 - CONCLUSION: 1. Senescent changes without acute intracranial abnormality. Clinton Walter MD Chest X-Ray 06/22/17 1152 Signed Impressions: Service Date/Time: Thursday, June 22, 2017 12:39 - CONCLUSION: 1. Platelike bilateral lower lung zone airspace disease consistent with atelectasis. Clinton Walter MD Abdomen/Pelvis CT 06/22/17 0000 Signed Impressions: Service Date/Time: Thursday, June 22, 2017 14:44 - CONCLUSION: 1. Diffusely fluid-filled slightly prominent colon without significant colonic wall thickening. Although nonspecific, findings likely reflect enteritis. Although less likely, very early infectious colitis cannot be excluded. 2. Significantly distended gallbladder without significant biliary ductal dilatation. This may be due to prolonged fasting. Clinical correlation is recommended. Consider ultrasound examination if there is significant continued clinical concern. 3. Mild patchy airspace disease at the left lung base, presumably atelectasis. 4. Very minimal trace bilateral pleural effusions. Clinton Walter MD Objective Remarks GENERAL: This is a well-nourished, well-developed patient SKIN: No rashes, ecchymoses or lesions. Cool and dry. CARDIOVASCULAR: Regular rate and rhythm without murmurs, gallops, or rubs. RESPIRATORY: Clear to auscultation. Decreased Breath sounds equal bilaterally. No wheezes, rales, or rhonchi. GASTROINTESTINAL: Abdomen soft, nondistended. Nontender. No guarding. MUSCULOSKELETAL: Extremities without clubbing, cyanosis, or edema. NEUROLOGICAL: Awake answering questions and following commands intermittently. Oriented to person and place the Moving all extremities Procedures none A/P Problem List: (1) Sepsis ICD Code: A41.9 - Sepsis, unspecified organism (2) Metabolic encephalopathy ICD Code: G93.41 - Metabolic encephalopathy (3) Acute kidney injury ICD Code: N17.9 - Acute kidney failure, unspecified Status: Acute (4) Low bicarbonate level ICD Code: E87.8 - Other disorders of electrolyte and fluid balance, not elsewhere classified Status: Acute (5) Hypothermia ICD Code: T68.XXXA - Hypothermia, initial encounter Status: Acute (6) Hypokalemia ICD Code: E87.6 - Hypokalemia Status: Acute Assessment and Plan 71-year-old female with Sepsis. Resolved Monica UTI. Continue Diflucan Abdominal tenderness with distended gallbladder. LFTs within normal limits. Leukocytosis improving. No pain/tenderness ct Flagyl. Pain management with IV morphine. Consider GS consult Previous history of C. difficile and collagenous colitis. Repeat C. difficile negative. Discussed with RN to obtain complete med list from detention. Continue Azulfidine and Entocort not on formulary switched to prednisone. Consulted GI 2/2 profuse diarrhea leading to SONIA. Also on Flagyl. Follow-up stool studies Metabolic/septic encephalopathy likely secondary to acute kidney injury and infection. CT Head noted and review by me without any acute finding. Improving. Neurochecks. If worse consider brain MRI and EEG Dysphagia. Improving. Start pured diet and switch tube feeding via NGT to nocturnal times. Aspiration precautions. Consult dietitian for tube feeding recommendations. Hypoglycemia secondary to nothing by mouth status. Improving. Monitor fingersticks and continue D5 prn. Hypoglycemia protocol Acute kidney injury with acidosis secondary to dehydration and sepsis. Nonoliguric. Likely has ATN may need hemodialysis. Improving. Continue 1/4 S with sodium bicarbonate. Avoid nephrotoxins. Consulted nephrology Hypokalemia secondary to diarrhea. Improved. Replace aggressively as long as patient has adequate urine output. Chronic medical conditions of anemia, hypertension, coronary artery disease, CVA and hypothyroidism. Continue outpatient medications as appropriate DVT prophylaxis: Bilateral SCDs and subcutaneous heparin Discharge Planning Improving may transfer to regular floor Problem Qualifiers (1) Hypothermia: Qualified Codes: T68.XXXA - Hypothermia, initial encounter Roni Mccormack MD Jun 26, 2017 09:46
[2017-06-26] MEDS ORDERED: FLUCONAZOLE 100 MG PREMIX BAG 50 ML IV SCH (10:00)
--- NOTE | 2017-06-26 11:59 | HHI.GIFU ---
Subjective Remarks Still having generalized abdominal pain NG tube in with GI feedings at 20 cc an hour Awake answers simple questions Temp 99.1 Diarrhea multiple episodes and uncontrolled (Mary Turner) Objective Vitals I&O Vital Signs Date Time Temp Pulse Resp B/P (MAP) Pulse Ox O2 Delivery O2 Flow Rate FiO2 06/26/17 10:00 96 06/26/17 08:00 89 06/26/17 08:00 98.4 89 18 126/70 (88) 96 06/26/17 07:00 Room Air 06/26/17 04:00 98.2 107 22 132/67 (88) 93 06/26/17 00:00 98.4 100 18 128/64 (85) 94 06/25/17 20:00 99.1 111 19 155/68 (97) 94 06/25/17 19:00 Room Air 06/25/17 18:00 109 06/25/17 16:00 98.9 92 18 138/91 (107) 93 06/25/17 16:00 92 06/25/17 14:00 98 06/25/17 14:00 98 06/25/17 12:00 98.4 104 20 140/67 (91) 95 06/25/17 12:00 104 I/O 06/25/17 06/25/17 06/25/17 06/26/17 06/26/17 06/26/17 07:00 15:00 23:00 07:00 15:00 23:00 Intake Total 1664 ml 300 ml 1689 ml 1253 ml Output Total 775 ml 1720 ml 950 ml Balance 889 ml 300 ml -31 ml 303 ml Intake Oral 0 ml 0 ml IV Total 1664 ml 300 ml 1689 ml 1233 ml Tube Feeding 20 ml Output Urine Total 175 ml 300 ml 250 ml Stool Total 600 ml 1400 ml 700 ml Gastric Drainage Total 20 ml 0 ml # Bowel Movements 3 Laboratory Laboratory Tests Test 06/26/17 04:15 Blood Urea Nitrogen 23 Creatinine 3.43 Random Glucose 140 Calcium Level 7.9 Magnesium Level 1.6 Sodium Level 151 Potassium Level 3.5 Chloride Level 120 Carbon Dioxide Level 24.3 Anion Gap 7 Estimat Glomerular Filtration Rate 13 Date/Time Source Procedure Growth Status 06/22/17 12:30 Blood Peripheral Aerobic Blood Culture - Preliminary NO GROWTH IN 4 DAYS Resulted 06/22/17 12:30 Blood Peripheral Anaerobic Blood Culture - Preliminary NO GROWTH IN 4 DAYS Resulted 06/22/17 12:25 Urine Catheterized Urine Urine Culture - Final Monica Tropicalis Complete Imaging Last Impressions Gall Bladder Ultrasound 06/23/17 0000 Signed Impressions: Service Date/Time: Friday, June 23, 2017 14:13 - CONCLUSION: Gallbladder is quite distended. A small right pleural effusion. Pacheco Che MD Head CT 06/22/17 1152 Signed Impressions: Service Date/Time: Thursday, June 22, 2017 13:03 - CONCLUSION: 1. Senescent changes without acute intracranial abnormality. Clinton Walter MD Chest X-Ray 06/22/17 1152 Signed Impressions: Service Date/Time: Thursday, June 22, 2017 12:39 - CONCLUSION: 1. Platelike bilateral lower lung zone airspace disease consistent with atelectasis. Clinton Walter MD Abdomen/Pelvis CT 06/22/17 0000 Signed Impressions: Service Date/Time: Thursday, June 22, 2017 14:44 - CONCLUSION: 1. Diffusely fluid-filled slightly prominent colon without significant colonic wall thickening. Although nonspecific, findings likely reflect enteritis. Although less likely, very early infectious colitis cannot be excluded. 2. Significantly distended gallbladder without significant biliary ductal dilatation. This may be due to prolonged fasting. Clinical correlation is recommended. Consider ultrasound examination if there is significant continued clinical concern. 3. Mild patchy airspace disease at the left lung base, presumably atelectasis. 4. Very minimal trace bilateral pleural effusions. Clinton Walter MD Physical Exam HEENT: Pupils round and reactive to light; normocephalic; atraumatic NECK: Neck is supple, thin CHEST: Chest is diminished low volumes, no rhonchi CARDIAC: Regular rate and rhythm ABDOMEN: Flat, Soft, nondistended, generalized tenderness right upper quadrant as well as left side, upper and lower quadrants, epigastric tenderness bowel sounds are present in all four quadrants. EXTREMITIES: No clubbing, cyanosis, or edema. SKIN: Normal; no rash; no jaundice. FORENSIC ECONOMIST: No focal deficits; alert and oriented times 2 (Mary Turner) Assessment and Plan Plan - diarrhea - likely Collagenous Colitis, recurrent. Recent hospitalization at [facility] with Colonoscopy. Patient was discharged with steroid taper and Sulfasalazine. Stool studies previous admission neg. 06/22 c diff neg. Will repeat stool studies. has cholestyramine, sulfasalazine ordered but refusing NGT Abdominal CT shows some possible gallbladder disease, possible enteritis Anemia, currently hemoglobin 9., No active bleed noted palliative care following,awaiting mtg with pts daughter - anemia - hypochromic, microcytic HH relatively stable PLAN - NGT, current feedings 20 cc an hour increase as patient tolerates - palliative care follow up, daughter is a decision maker but is currently incarcerated. CODE STATUS changed to DNR/DNI but otherwise full aggressive care - Stool studies held for now, C. difficile negative - CMP for the am - Prednisone 20 mg 3 times a day added, Entocort not available per pharmacy - supportive care - further recs to follow Monitor labs Call for any acute bleeding This pt seen by myself and DR Robbins and this note is written on his behalf (Mary Turner) Physician Comments Agree with the assessment and plan as above, will follow up with you. (Kayli Robbins MD) Mary Turner Jun 26, 2017 11:59 Kayli Robbins MD Jun 27, 2017 06:12
[2017-06-26] MEDS: 1/2 NS + KCL 20 MEQ INJ 1,000 ML IV SCH ×2 (12:32→20:41)
[2017-06-26] MEDS: predniSONE 20 MG TAB PO SCH ×2 (13:26→18:11)
--- NOTE | 2017-06-26 16:34 | HHI.NPPN ---
Subjective History of Present Illness 71-year-old female with past medical history of hypertension, ischemic heart disease, history of hepatitis B, history of alcoholism in the past, cerebrovascular accident, hypothyroidism who was transferred here from the nursing facility because of altered mental status and diarrhea. I was called to see the patient because of very high BUN and creatinine. Additional Remarks Patient is more alert, not in distress, seems to be oriented now times 2. Objective Data Data Vital Signs Date Time Temp Pulse Resp B/P (MAP) Pulse Ox O2 Delivery O2 Flow Rate FiO2 06/26/17 16:00 97 06/26/17 14:00 99 06/26/17 12:00 98 06/26/17 12:00 98.2 98 20 152/71 (98) 95 06/26/17 10:00 96 06/26/17 08:00 89 06/26/17 08:00 98.4 89 18 126/70 (88) 96 06/26/17 07:00 Room Air 06/26/17 04:00 98.2 107 22 132/67 (88) 93 06/26/17 00:00 98.4 100 18 128/64 (85) 94 06/25/17 20:00 99.1 111 19 155/68 (97) 94 06/25/17 19:00 Room Air 06/25/17 18:00 109 -: 06/25/17 0706 06/26/17 0415 Physical Exam General Appearance: No Acute Distress, Comfortable, Anxious Eyes Eye Exam: Pupils Equal Neck Neck Exam: Neck Supple Pulmonary Resp Exam: Breath Sounds Equal, No Distress, Rhonchi, Decreased Bases Cardiology CV Exam: Regular, Normal Sinus Rhythm Gastrointestinal/Abdomen GI Exam: Soft, Non-Tender, Bowel Sounds Present Extremeties Extremities Exam: No Edema Neurologic Neuro Exam: Alert, Awake Psychiatric Psych Exam: Appropriate Responses Assessment/Plan Assessment Summary: SONIA/Acute Renal Failure Problem List: (1) Anemia ICD Codes: D64.9 - Anemia, unspecified (2) Altered mental status ICD Codes: R41.82 - Altered mental status, unspecified Status: Acute (3) Metabolic encephalopathy ICD Codes: G93.41 - Metabolic encephalopathy (4) Low bicarbonate level ICD Codes: E87.8 - Other disorders of electrolyte and fluid balance, not elsewhere classified Status: Acute (5) Diarrhea ICD Codes: R19.7 - Diarrhea, unspecified Status: Acute (6) Hypothermia ICD Codes: T68.XXXA - Hypothermia, initial encounter Status: Acute (7) Acute kidney injury ICD Codes: N17.9 - Acute kidney failure, unspecified Status: Acute Plan Patient has Acute kidney injury. Urine Na. is low and Eosinophils is negative. BP is better, Continue IVF with NaHco3. Urine out put is low. Most likely has ATN. Creatinine continue to improve. Na. is elevated, IVF changed to 1/2NS Urine out put is still low. Continue IVF and started on GT feeding. D/W the daughter at bed side. Problem Qualifiers (1) Anemia: Qualified Codes: D64.9 - Anemia, unspecified (2) Altered mental status: Qualified Codes: R41.82 - Altered mental status, unspecified (3) Diarrhea: Qualified Codes: R19.7 - Diarrhea, unspecified (4) Hypothermia: Qualified Codes: T68.XXXA - Hypothermia, initial encounter Javid Benson MD Jun 26, 2017 16:34
--- NOTE | 2017-06-26 17:09 | HHI.HCPN ---
Reason for visit a. To assist with evaluation and management of symptoms including: encephalopathy, pain. b. To assist medical decision maker(s) with: better understanding of current medical conditions; weighing benefits/burdens of medical treatment options; making medical treatment decisions. . Subjective/Interval History Patient seen and examined in ICU. Daughter at bedside, was released from nursing home this morning. She is at bedside and thrilled to see patient more alert today. Afebrile. VSS. Tolerating NG feedings. passed swallow eval today tolerating puree diet with thin liquids. Reports pain in her throat due to tube. Explained if she continues to eat will be able to remove tube in coming days. Renal function imprvoing slightly, creatinine 3.43. No new imaging. Transfer order to medical floor. . Family/friend interactions See interval note. . Advance Directives Living Will: Never completed Health Care Surrogate: Never completed Durable Power of Gold Beater: Never completed Advance Directive Specifics Health Care Surrogate(s): Patient is confused, unable to participate in making her own health care decisions at this time. Uncertain if she will regain capacity. According to [place] statutes, health care proxy decision-making falls to majority of adult children. Patient has one daughter, Priti Salinas. . Significant change in goals: NO CODE. Goals remain aggressive short of NO CODE for now. . Objective Vital Signs Date Time Temp Pulse Resp B/P (MAP) Pulse Ox O2 Delivery O2 Flow Rate FiO2 06/26/17 16:00 97 06/26/17 14:00 99 06/26/17 12:00 98 06/26/17 12:00 98.2 98 20 152/71 (98) 95 06/26/17 10:00 96 06/26/17 08:00 89 06/26/17 08:00 98.4 89 18 126/70 (88) 96 06/26/17 07:00 Room Air 06/26/17 04:00 98.2 107 22 132/67 (88) 93 06/26/17 00:00 98.4 100 18 128/64 (85) 94 06/25/17 20:00 99.1 111 19 155/68 (97) 94 06/25/17 19:00 Room Air 06/25/17 18:00 109 Intake & Output 06/26/17 06/26/17 07:00 19:00 Intake Total 1353 ml Output Total 950 ml Balance 403 ml Intake Oral 0 ml IV Total 1333 ml Tube Feeding 20 ml Output Urine Total 250 ml Stool Total 700 ml Gastric Drainage Total 0 ml Physical Exam CONSTITUTIONAL/GENERAL: This is an elderly, frail female, lethargic, confused. SKIN: No jaundice, rashes, or lesions. Ecchymoses on upper extremities. No wounds seen anteriorly. Skin temperature appropriate. Not diaphoretic. EYES: eyes closed. ENT: Hearing grossly normal. Nose without bleeding or purulent drainage. Poor dentition. NECK: Trachea midline. Supple, nontender. No palpable thyroid enlargement or nodularity. CARDIOVASCULAR: Regular rate and rhythm without murmurs, gallops, or rubs. RESPIRATORY/CHEST: Symmetric, unlabored respirations. Clear to auscultation. Decreased Breath sounds bilaterally. GASTROINTESTINAL: Abdomen soft, non-tender, nondistended. No guarding. Bowel sounds hypoactive. GENITOURINARY: Without palpable bladder distension. MUSCULOSKELETAL: Extremities without clubbing, cyanosis, or edema. No mottling or clubbing. NEUROLOGICAL: Awake and more alert. Follows commands, answers questions. Moves all extremities. PSYCHIATRIC: calm, appropriate. . Diagnostic Tests Laboratory Laboratory Tests Test 06/23/17 21:38 06/24/17 06:28 06/25/17 07:06 06/26/17 04:15 Blood Urea Nitrogen 20 MG/DL (7-18) 20 MG/DL (7-18) 21 MG/DL (7-18) 23 MG/DL (7-18) Creatinine 4.23 MG/DL (0.50-1.00) 4.24 MG/DL (0.50-1.00) 3.94 MG/DL (0.50-1.00) 3.43 MG/DL (0.50-1.00) Random Glucose 74 MG/DL (74-106) 85 MG/DL (74-106) 95 MG/DL (74-106) 140 MG/DL (74-106) Calcium Level 8.2 MG/DL (8.5-10.1) 8.7 MG/DL (8.5-10.1) 8.2 MG/DL (8.5-10.1) 7.9 MG/DL (8.5-10.1) Magnesium Level 2.3 MG/DL (1.5-2.5) 2.2 MG/DL (1.5-2.5) 2.0 MG/DL (1.5-2.5) 1.6 MG/DL (1.5-2.5) Sodium Level 150 MEQ/L (136-145) 153 MEQ/L (136-145) 152 MEQ/L (136-145) 151 MEQ/L (136-145) Potassium Level 3.1 MEQ/L (3.5-5.1) 3.6 MEQ/L (3.5-5.1) 3.4 MEQ/L (3.5-5.1) 3.5 MEQ/L (3.5-5.1) Chloride Level 130 MEQ/L (98-107) 131 MEQ/L (98-107) 126 MEQ/L (98-107) 120 MEQ/L (98-107) Carbon Dioxide Level 10.3 MEQ/L (21.0-32.0) 14.7 MEQ/L (21.0-32.0) 20.5 MEQ/L (21.0-32.0) 24.3 MEQ/L (21.0-32.0) Anion Gap 10 MEQ/L (5-15) 7 MEQ/L (5-15) 6 MEQ/L (5-15) 7 MEQ/L (5-15) Estimat Glomerular Filtration Rate 10 ML/MIN (>89) 10 ML/MIN (>89) 11 ML/MIN (>89) 13 ML/MIN (>89) White Blood Count 13.7 TH/MM3 (4.0-11.0) 9.7 TH/MM3 (4.0-11.0) Red Blood Count 3.87 MIL/MM3 (4.00-5.30) 3.89 MIL/MM3 (4.00-5.30) Hemoglobin 9.1 GM/DL (11.6-15.3) 9.0 GM/DL (11.6-15.3) Hematocrit 29.0 % (35.0-46.0) 29.0 % (35.0-46.0) Mean Corpuscular Volume 74.8 FL (80.0-100.0) 74.6 FL (80.0-100.0) Mean Corpuscular Hemoglobin 23.6 PG (27.0-34.0) 23.3 PG (27.0-34.0) Mean Corpuscular Hemoglobin Concent 31.5 % (32.0-36.0) 31.2 % (32.0-36.0) Red Cell Distribution Width 22.6 % (11.6-17.2) 22.4 % (11.6-17.2) Platelet Count 246 TH/MM3 (150-450) 278 TH/MM3 (150-450) Mean Platelet Volume 6.6 FL (7.0-11.0) 6.5 FL (7.0-11.0) Neutrophils (%) (Auto) 80.6 % (16.0-70.0) 71.0 % (16.0-70.0) Lymphocytes (%) (Auto) 8.0 % (9.0-44.0) 12.8 % (9.0-44.0) Monocytes (%) (Auto) 10.6 % (0.0-8.0) 14.0 % (0.0-8.0) Eosinophils (%) (Auto) 0.7 % (0.0-4.0) 1.7 % (0.0-4.0) Basophils (%) (Auto) 0.1 % (0.0-2.0) 0.5 % (0.0-2.0) Neutrophils # (Auto) 11.1 TH/MM3 (1.8-7.7) 6.9 TH/MM3 (1.8-7.7) Lymphocytes # (Auto) 1.1 TH/MM3 (1.0-4.8) 1.2 TH/MM3 (1.0-4.8) Monocytes # (Auto) 1.5 TH/MM3 (0-0.9) 1.3 TH/MM3 (0-0.9) Eosinophils # (Auto) 0.1 TH/MM3 (0-0.4) 0.2 TH/MM3 (0-0.4) Basophils # (Auto) 0.0 TH/MM3 (0-0.2) 0.0 TH/MM3 (0-0.2) CBC Comment DIFF FINAL DIFF FINAL Differential Comment Result Diagram: 06/25/17 0706 06/26/17 0415 Microbiology Microbiology Date/Time Source Procedure Growth Status 06/22/17 12:30 Blood Peripheral Aerobic Blood Culture - Preliminary NO GROWTH IN 4 DAYS Resulted 06/22/17 12:30 Blood Peripheral Anaerobic Blood Culture - Preliminary NO GROWTH IN 4 DAYS Resulted 06/22/17 12:25 Urine Catheterized Urine Urine Culture - Final Monica Tropicalis Complete Imaging Last Impressions Gall Bladder Ultrasound 06/23/17 0000 Signed Impressions: Service Date/Time: Friday, June 23, 2017 14:13 - CONCLUSION: Gallbladder is quite distended. A small right pleural effusion. Pacheco Che MD Head CT 06/22/17 1152 Signed Impressions: Service Date/Time: Thursday, June 22, 2017 13:03 - CONCLUSION: 1. Senescent changes without acute intracranial abnormality. Clinton Walter MD Chest X-Ray 06/22/17 1152 Signed Impressions: Service Date/Time: Thursday, June 22, 2017 12:39 - CONCLUSION: 1. Platelike bilateral lower lung zone airspace disease consistent with atelectasis. Clinton Walter MD Abdomen/Pelvis CT 06/22/17 0000 Signed Impressions: Service Date/Time: Thursday, June 22, 2017 14:44 - CONCLUSION: 1. Diffusely fluid-filled slightly prominent colon without significant colonic wall thickening. Although nonspecific, findings likely reflect enteritis. Although less likely, very early infectious colitis cannot be excluded. 2. Significantly distended gallbladder without significant biliary ductal dilatation. This may be due to prolonged fasting. Clinical correlation is recommended. Consider ultrasound examination if there is significant continued clinical concern. 3. Mild patchy airspace disease at the left lung base, presumably atelectasis. 4. Very minimal trace bilateral pleural effusions. Clinton Walter MD Assessment and Plan Disease Oriented Problem List: (1) Acute kidney injury (2) Metabolic encephalopathy (3) Sepsis (4) Altered mental status (5) UTI (urinary tract infection) Symptom Scale: (1) Pain 0-10 Scale: Unable to quantify (2) Altered mental status 0-10 Scale: 0 Pertinent Non-Medical Issues Psychosocial: single. Supported by her siblings and her daughter. Daughter is currently incarcerated, expected to be released on 07/01/17. Spiritual: Jew conner. Legal:Patient is confused, unable to participate in making her own health care decisions at this time. Uncertain if she will regain capacity. According to [place] statutes, health care proxy decision-making falls to majority of adult children. Patient has one daughter, Priti Salinas. Ethical issues impacting care: no known concerns at this time. . Important Contacts * Priti Jaimes, daughter/HCP: currently incarcerated can be reached during the daytime hours through Cristobal Jennings ([phone] ext [phone]) field nurse case manager with the nursing home. After hours at [phone]. * half-sister, Alexy Hsieh ([phone]). * brother in [place], Elijah Middleton #[phone] . Prognosis Ms. Middleton is a 71-year-old female with sepsis, metabolic encephalopathy, recurrent colitis, renal failure and trajectory of decline over the past few months. She remains in ICU, critically ill. Is it is unclear if she will survive this hospitalization, she remains high risk for worsening condition . Code Status: No Code Plan * Decision Maker: Patient mentation is clearing, recommend shared decision making. According to [place] statutes, health care proxy decision-making falls to majority of adult children. Patient has one daughter, Priti Salinas who is willing to serve as healthcare proxy decision maker. * NO CODE - DNR/DNI * Palliative care: spoke with daughter and patient at bedside. Goals remain aggressive short of NO CODE at this time. * SYMPTOMS: Pain: patient denies pain during my visit. Potential sources of pain may include bedbound status, nutritional and functional decline. Will monitor. Encephalopathy: likely multifactorial including metabolic encephalopathy, renal failure. Will monitor. Debility: patient remains confused, bedbound. * Palliative care will continue to follow throughout hospital course to assist with symptom management and clarification of goals as needed. . Attestation To help prompt me to consider important information that might be impacting today's encounter and assessment, information from prior notes written by myself or my colleagues may have been "brought forward" into today's note. My signature on this note, however, is an attestation that I personally performed the exam, history, and/or decision-making noted today, and, unless otherwise indicated, the interactions with patient, family, and staff as well as the review of records all occurred today. I also attest that the listed assessment and stated plan reflect my best clinical judgment today based on the combination of historical information, prior notes, and today's exam/ interactions. When time spent is documented, it refers only to time spent today by the signer, or if indicated, combined time spent today by collaborating physician/nurse practitioner. Bindu Coleman Jun 26, 2017 17:09
[2017-06-26] MEDS: metroNIDAZOLE 500 MG TAB PO SCH (18:11)
[2017-06-26] MEDS: PRAVASTATIN SOD 20 MG TAB NG SCH (20:42)
[2017-06-27] VITALS (7 sets, daily range): BP systolic 123–154; BP diastolic 65–75; PULSE 78–87; RESP 14–22; TEMP 96.2–97.8; O2SAT 95–97
[2017-06-27] MEDS: metroNIDAZOLE 500 MG TAB PO SCH ×5 (00:33→23:46)
[2017-06-27] MEDS: CHOLESTYRAMINE 4 GM PACKET NG SCH ×5 (00:33→23:46)
[2017-06-27] MEDS: 1/2 NS + KCL 20 MEQ INJ 1,000 ML IV SCH ×4 (02:38→21:07)
[2017-06-27] MEDS: FAMOTIDINE 20 MG/2 ML VIAL IV PUSH SCH ×2 (04:47→18:33)
[2017-06-27] MEDS: LEVOTHYROXINE SODIUM 50 MCG TAB PO SCH (04:48)
[2017-06-27] MEDS: sulfaSALAzine 500 MG TAB NG SCH ×3 (04:49→21:21)
[2017-06-27 07:31] LABS: ALKALINE PHOSPHATASE 108 U/L (45-117); ALT (GPT) 9 U/L (10-53); ANION GAP 7 MEQ/L (5-15); AST (GOT) 12 U/L (15-37); BICARBONATE 17.3 MEQ/L (21.0-32.0); BLOOD UREA NITROGEN 23 MG/DL (7-18); CHLORIDE 120 MEQ/L (98-107); GLOMERULAR FILTRATION RATE 17 ML/MIN (>89); MAGNESIUM 1.7 MG/DL (1.5-2.5); POTASSIUM 5.2 MEQ/L (3.5-5.1); SODIUM (NA) 144 MEQ/L (136-145); TOTAL BILIRUBIN ADULT 0.4 MG/DL (0.2-1.0)
[2017-06-27] MEDS: LACTOBACILLUS ACIDOPHILUS TAB NG SCH ×2 (08:07→21:21)
[2017-06-27] MEDS: SODIUM CHLORIDE 0.9% FLUSH 10 ML FLUSH IV FLUSH SCH ×2 (08:07→21:08)
[2017-06-27] MEDS: predniSONE 20 MG TAB PO SCH ×3 (08:08→18:33)
[2017-06-27] MEDS: FLUCONAZOLE 100 MG TAB PO SCH (08:08)
[2017-06-27] MEDS: CLOPIDOGREL 75 MG TAB NG SCH (08:08)
[2017-06-27] MEDS: amLODIPine BESYLATE 5 MG TAB NG SCH (08:08)
[2017-06-27] MEDS: ASPIRIN 81 MG CHEW TAB NG SCH (08:09)
[2017-06-27] MEDS: HEPARIN SODIUM - SQ 10,000 UNITS/ML VIAL SQ SCH ×2 (08:11→21:22)
--- NOTE | 2017-06-27 10:28 | HHI.PR ---
Subjective Remarks 71-year-old female with a history of hypertension, CAD and a resident from a local senior care facility was brought to the ED for evaluation of worsening mentation change. Patient is unable to communicate at this time during my exam and history is obtained from ED report and chart review below: "71-year-old female presents from a senior care for initial transport of abnormal blood work. Patient had labs on the that showed a glucose of 49. The ambulance team checked in her sugar today was 58. They gave her D10 IV fluids and now her sugar is in the 100s the nursing staff states. The patient denies pain by shaking her head no but states when I ask her what is wrong. History is significantly limited. The ambulance team states they were told she had C. difficile and was refusing medication but was not given a medication list." 06-26 Follow-up encephalopathy, acute kidney injury and colitis. She is more awake and oriented. She wants to get better agrees with current management. Nonoliguric but continues to have significant volume of stools. Denies abdominal pain. 06-27 HAS TUBE FEEDS GOING AT NIGHT NEEDS PT AND OT AND ST MONITOR RENAL FUNCTIONS DW RN AND PT AM LABS SHE THINKS SHE IS FROM A SNF Objective Vitals Vital Signs Date Time Temp Pulse Resp B/P (MAP) Pulse Ox O2 Delivery O2 Flow Rate FiO2 06/27/17 08:00 96.9 81 22 123/68 (86) 95 06/27/17 04:00 96.6 78 16 143/67 (92) 96 06/27/17 02:22 96.2 79 16 146/70 (95) 95 06/27/17 00:00 78 06/27/17 00:00 98.2 78 14 135/65 (88) 95 06/26/17 22:00 93 06/26/17 20:00 100.0 99 19 139/69 (92) 92 06/26/17 20:00 99 06/26/17 19:00 Room Air 06/26/17 18:00 105 06/26/17 16:00 97 06/26/17 16:00 98.9 97 19 144/69 (94) 93 06/26/17 14:00 99 06/26/17 12:00 98 06/26/17 12:00 98.2 98 20 152/71 (98) 95 I/O 06/26/17 06/26/17 06/26/17 06/27/17 06/27/17 06/27/17 07:00 15:00 23:00 07:00 15:00 23:00 Intake Total 1253 ml 587 ml 1592 ml 437 ml 0 ml Output Total 950 ml 1100 ml 1450 ml Balance 303 ml 587 ml 492 ml -1013 ml 0 ml Intake Oral 0 ml 300 ml 240 ml 0 ml IV Total 1233 ml 587 ml 1000 ml Tube Feeding 20 ml 292 ml 197 ml Output Urine Total 250 ml 300 ml 250 ml Stool Total 700 ml 800 ml 1200 ml Gastric Drainage Total 0 ml Result Diagram: 06/25/17 0706 06/27/17 0551 Other Results Laboratory Tests Test 06/25/17 07:06 06/26/17 04:15 06/27/17 05:51 White Blood Count 9.7 TH/MM3 Red Blood Count 3.89 MIL/MM3 Hemoglobin 9.0 GM/DL Hematocrit 29.0 % Mean Corpuscular Volume 74.6 FL Mean Corpuscular Hemoglobin 23.3 PG Mean Corpuscular Hemoglobin Concent 31.2 % Red Cell Distribution Width 22.4 % Platelet Count 278 TH/MM3 Mean Platelet Volume 6.5 FL Neutrophils (%) (Auto) 71.0 % Lymphocytes (%) (Auto) 12.8 % Monocytes (%) (Auto) 14.0 % Eosinophils (%) (Auto) 1.7 % Basophils (%) (Auto) 0.5 % Neutrophils # (Auto) 6.9 TH/MM3 Lymphocytes # (Auto) 1.2 TH/MM3 Monocytes # (Auto) 1.3 TH/MM3 Eosinophils # (Auto) 0.2 TH/MM3 Basophils # (Auto) 0.0 TH/MM3 CBC Comment DIFF FINAL Differential Comment Blood Urea Nitrogen 21 MG/DL 23 MG/DL 23 MG/DL Creatinine 3.94 MG/DL 3.43 MG/DL 2.81 MG/DL Random Glucose 95 MG/DL 140 MG/DL 181 MG/DL Calcium Level 8.2 MG/DL 7.9 MG/DL 8.5 MG/DL Magnesium Level 2.0 MG/DL 1.6 MG/DL 1.7 MG/DL Sodium Level 152 MEQ/L 151 MEQ/L 144 MEQ/L Potassium Level 3.4 MEQ/L 3.5 MEQ/L 5.2 MEQ/L Chloride Level 126 MEQ/L 120 MEQ/L 120 MEQ/L Carbon Dioxide Level 20.5 MEQ/L 24.3 MEQ/L 17.3 MEQ/L Anion Gap 6 MEQ/L 7 MEQ/L 7 MEQ/L Estimat Glomerular Filtration Rate 11 ML/MIN 13 ML/MIN 17 ML/MIN Total Protein 5.1 GM/DL Albumin 2.1 GM/DL Alkaline Phosphatase 108 U/L Aspartate Amino Transf (AST/SGOT) 12 U/L Alanine Aminotransferase (ALT/SGPT) 9 U/L Total Bilirubin 0.4 MG/DL Imaging Last Impressions Gall Bladder Ultrasound 06/23/17 0000 Signed Impressions: Service Date/Time: Friday, June 23, 2017 14:13 - CONCLUSION: Gallbladder is quite distended. A small right pleural effusion. Pacheco Che MD Head CT 06/22/17 1152 Signed Impressions: Service Date/Time: Thursday, June 22, 2017 13:03 - CONCLUSION: 1. Senescent changes without acute intracranial abnormality. Clinton Walter MD Chest X-Ray 06/22/17 1152 Signed Impressions: Service Date/Time: Thursday, June 22, 2017 12:39 - CONCLUSION: 1. Platelike bilateral lower lung zone airspace disease consistent with atelectasis. Clinton Walter MD Abdomen/Pelvis CT 06/22/17 0000 Signed Impressions: Service Date/Time: Thursday, June 22, 2017 14:44 - CONCLUSION: 1. Diffusely fluid-filled slightly prominent colon without significant colonic wall thickening. Although nonspecific, findings likely reflect enteritis. Although less likely, very early infectious colitis cannot be excluded. 2. Significantly distended gallbladder without significant biliary ductal dilatation. This may be due to prolonged fasting. Clinical correlation is recommended. Consider ultrasound examination if there is significant continued clinical concern. 3. Mild patchy airspace disease at the left lung base, presumably atelectasis. 4. Very minimal trace bilateral pleural effusions. Clinton Walter MD Objective Remarks GENERAL: SKIN: Warm and dry. HEAD: Atraumatic. Normocephalic. EYES: Pupils equal and round. No scleral icterus. No injection or drainage. ENT: No nasal bleeding or discharge. Mucous membranes pink and moist. NECK: Trachea midline. No JVD. CARDIOVASCULAR: Regular rate and rhythm. RESPIRATORY: No accessory muscle use. Clear to auscultation. Breath sounds equal bilaterally. GASTROINTESTINAL: Abdomen soft, non-tender, nondistended. Hepatic and splenic margins not palpable. MUSCULOSKELETAL: Extremities without clubbing, cyanosis, or edema. No obvious deformities. NEUROLOGICAL: Awake and alert. No obvious cranial nerve deficits. Motor grossly within normal limits. Five out of 5 muscle strength in the arms and legs. Normal speech. PSYCHIATRIC: Appropriate mood and affect; insight and judgment normal. Procedures none Medications and IVs Current Medications Sodium Chloride (NS Flush) 2 ml UNSCH PRN IV FLUSH FLUSH AFTER USING IV ACCESS ; Start 06/22/17 at 12:00; Status Cancel Sodium Chloride 1,000 ml @ 125 mls/hr Q8H IV Last administered on 06/22/17 12:11; Start 06/22/17 at 11:52; Stop 06/22/17 at 19:51; Status DC Sodium Bicarbonate (Sodium Bicarbonate 8.4% Inj) 50 meq ONCE ONCE IV PUSH Last administered on 06/22/17 13:40; Start 06/22/17 at 13:15; Stop 06/22/17 at 13:16; Status DC Sodium Chloride 1,000 ml @ 999 mls/hr BOLUS ONCE IV Last administered on 13:37; Start 06/22/17 at 13:15; Stop 06/22/17 at 14:15; Status DC Piperacillin Sod/ Tazobactam Sod 100 ml @ 200 mls/hr ONCE STAT IV Last administered on 06/22/17 13:37; Start 06/22/17 at 13:15; Stop 06/22/17 at 13 :44; Status DC Sodium Bicarbonate (Sodium Bicarbonate 8.4% Inj) 100 meq ONCE ONCE IV PUSH Last administered on 06/22/17 14:29; Start 06/22/17 at 13:45; Stop 06/22/17 at 13:46; Status DC Sodium Chloride 1,000 ml @ 999 mls/hr BOLUS ONCE IV Last administered on 17:11; Start 06/22/17 at 14:00; Stop 06/22/17 at 15:00; Status DC Sodium Chloride 1,000 ml @ 100 mls/hr Q10H IV Last administered on 06/22/17 21:17; Start 06/22/17 at 14:09; Stop 06/23/17 at 10:39; Status DC Sodium Chloride (NS Flush) 2 ml UNSCH PRN IV FLUSH FLUSH AFTER USING IV ACCESS ; Start 06/22/17 at 14:15 Sodium Chloride (NS Flush) 2 ml BID IV FLUSH Last administered on 06/26/17 20 :41; Start 06/22/17 at 21:00 Acetaminophen (Tylenol) 650 mg Q4H PRN PO TEMP > 100.4; Start 06/22/17 at 14: 15; Stop 06/26/17 at 06:07; Status DC Ondansetron HCl (Zofran Inj) 4 mg Q6H PRN IVP NAUSEA OR VOMITING; Start at 14:15 Acetaminophen (Tylenol) 650 mg Q6H PRN PO PAIN SCALE 1 TO 2; Start 06/22/17 at 14:15; Stop 06/26/17 at 06:07; Status DC Naloxone HCl (Narcan Inj) 0.4 mg UNSCH PRN IV PUSH SEE LABEL COMMENTS; Start 06/22/17 at 14:15 Metronidazole 100 ml @ 100 mls/hr Q8H IV Last administered on 06/23/17 08:01 ; Start 06/22/17 at 17:00; Stop 06/23/17 at 08:35; Status DC Ciprofloxacin/ Dextrose 200 ml @ 200 mls/hr Q12H IV Last administered on 06/25 05:57; Start 06/22/17 at 17:00; Stop 06/25/17 at 09:16; Status DC Lactobacillus Acidophilus (Lactinex) 1 tab Q12HR PO Last administered on 20:11; Start 06/22/17 at 21:00; Stop 06/26/17 at 06:07; Status DC Amlodipine Besylate (Norvasc) 5 mg DAILY PO Last administered on 06/25/17 14: 32; Start 06/23/17 at 09:00; Stop 06/26/17 at 06:07; Status DC Aspirin (Ecotrin Ec) 81 mg DAILY PO ; Start 06/23/17 at 09:00; Stop 06/26/17 at 06:07; Status DC Levothyroxine Sodium (Synthroid) 50 mcg DAILY@0600 PO Last administered on 05:42; Start 06/23/17 at 06:00; Stop 06/25/17 at 06:01; Status DC Pravastatin Sodium (Pravachol) 20 mg HS PO Last administered on 06/25/17 20: 11; Start 06/22/17 at 21:00; Stop 06/26/17 at 06:07; Status DC Patient Own Medication PT OWN MED: (Budeson... DAILY PO ; Start 06/23/17 at 09: 00; Stop 06/26/17 at 06:07; Status DC Dextrose (D50w (Vial) Inj) 50 ml UNSCH PRN IV PUSH HYPOGLYCEMIA-SEE COMMENTS Last administered on 06/23/17 10:23; Start 06/23/17 at 08:30 Glucagon (Glucagon Inj) 1 mg UNSCH PRN OTHER HYPOGLYCEMIA-SEE COMMENTS; Start 06/23/17 at 08:30 Cholestyramine Resin (Questran 4 Gm Pkt) 4 gm Q6HR PO Last administered on 04:22; Start 06/23/17 at 12:00; Stop 06/26/17 at 06:07; Status DC Clopidogrel Bisulfate (Plavix) 75 mg EVERY OTHER DAY PO Last administered on 06/25/17 14:33; Start 06/23/17 at 09:00; Stop 06/26/17 at 06:07; Status DC Famotidine (Pepcid) 10 mg Q12HR PO ; Start 06/23/17 at 09:00; Stop 06/25/17 at 06:01; Status DC Sulfasalazine (Azulfidine Ec) 500 mg Q8HR PO Last administered on 06/23/17 14 :00; Start 06/23/17 at 14:00; Stop 06/26/17 at 06:07; Status DC Acetaminophen/ Hydrocodone Bitart ([place] 5-325 Mg) 1 tab Q4H PRN PO PAIN SCALE 3 TO 5; Start 06/23/17 at 10:15; Stop 06/26/17 at 06:07; Status DC Acetaminophen/ Hydrocodone Bitart ([place] 7.5-325 Mg) 1 tab Q4H PRN PO PAIN SCALE 6 TO 10 Last administered on 06/25/17 20:11; Start 06/23/17 at 10:15; Stop 06/26/17 at 06:07; Status DC Morphine Sulfate (Morphine Inj) 1 mg Q3H PRN IV PUSH Pain 3-5; if unable to take PO Last administered on 06/23/17 22:24; Start 06/23/17 at 10:15; Stop 06/24/17 at 09:39; Status DC Morphine Sulfate (Morphine Inj) 2 mg Q3H PRN IV PUSH Pain 6-10;if unable to take PO Last administered on 06/24/17 02:20; Start 06/23/17 at 10:15; Stop 06/24/17 at 09:39; Status DC Morphine Sulfate (Morphine Inj) 2 mg Q3H PRN IV PUSH BREAKTHROUGH PAIN Last administered on 06/24/17 04:43; Start 06/23/17 at 10:15; Stop 06/24/17 at 09 :40; Status DC Sodium Bicarbonate 100 meq/Potassium Chloride 20 meq/ Sodium Chloride 1,110 ml @ 125 mls/hr Q8H53M IV ; Start 06/23/17 at 12:00; Stop 06/23/17 at 12:00; Status DC Potassium Chloride 30 meq/ Sodium Chloride 115 ml @ 33 mls/hr Q3H IV ; Start 06/23/17 at 12:00; Stop 06/23/17 at 17:59; Status Cancel Potassium Chloride 20 meq/ Sodium Bicarbonate 100 meq/Dextrose/ Sodium Chloride 1,110 ml @ 125 mls/hr Q8H53M IV Last administered on 06/24/17 05:36; Start 06/23/17 at 12:00; Stop 06/24/17 at 09:44; Status DC Sodium Bicarbonate 100 meq/Potassium Chloride 20 meq/ Sodium Chloride 1,110 ml @ 125 mls/hr Q8H53M PRN IV FS > 200; Start 06/23/17 at 12:00; Stop 06/24/17 at 09:44; Status DC Potassium Chloride 100 ml @ 50 mls/hr Q2H IV Last administered on 06/23/17 15:44; Start 06/23/17 at 11:00; Stop 06/23/17 at 16:59; Status DC Heparin Sodium (Porcine) (Heparin Inj) 5,000 units Q12HR SQ Last administered on 06/27/17 08:11; Start 06/23/17 at 21:00 Potassium Chloride 100 ml @ 100 mls/hr Q1H IV Last administered on 06/24/17 04:43; Start 06/24/17 at 03:00; Stop 06/24/17 at 05:59; Status DC Morphine Sulfate (Morphine Inj) 1 mg Q3H PRN IV PUSH Pain 3-5; if unable to take PO Last administered on 06/25/17 23:23; Start 06/24/17 at 10:00 Morphine Sulfate (Morphine Inj) 2 mg Q3H PRN IV PUSH Pain 6-10;if unable to take PO; Start 06/24/17 at 10:00 Morphine Sulfate (Morphine Inj) 2 mg Q3H PRN IV PUSH BREAKTHROUGH PAIN; Start 06/24/17 at 10:00 Potassium Chloride 20 meq/ Sodium Chloride 38.5 meq/Sodium Bicarbonate 100 meq/ Sterile Water 1,000 ml @ 125 mls/hr Q8H PRN IV FS>180; Start 06/24/17 at 11:00 Potassium Chloride 20 meq/ Sodium Bicarbonate 100 meq/Dextrose/ Sodium Chloride 1,000 ml @ 125 mls/hr Q8H IV Last administered on 06/26/17 03:50; Start at 11:00; Stop 06/26/17 at 06:07; Status DC Famotidine (Pepcid Inj) 10 mg Q12H PRN IV PUSH if npo; Start 06/24/17 at 09:45 ; Stop 06/25/17 at 06:01; Status DC Metronidazole 100 ml @ 100 mls/hr Q6H IV Last administered on 06/26/17 09:00 ; Start 06/24/17 at 16:00; Stop 06/26/17 at 12:59; Status DC Famotidine (Pepcid Inj) 10 mg Q12H IV PUSH Last administered on 06/27/17 04: 47; Start 06/25/17 at 06:00 Levothyroxine Sodium (Synthroid Inj) 25 mcg DAILY@06 IV PUSH Last administered on 06/26/17 04:22; Start 06/25/17 at 06:00; Stop 06/26/17 at 06:07; Status DC Potassium Chloride 100 ml @ 50 mls/hr ONCE ONCE IV ; Start 06/25/17 at 09:45 ; Stop 06/25/17 at 10:37; Status DC Fluconazole/ Sodium Chloride 50 ml @ 50 mls/hr Q24H IV Last administered on 09:00; Start 06/26/17 at 10:00; Stop 06/26/17 at 12:59; Status DC Fluconazole/ Sodium Chloride 100 ml @ 100 mls/hr ONCE ONCE IV Last administered on 06/25/17 10:21; Start 06/25/17 at 09:45; Stop 06/25/17 at 10 :44; Status DC Potassium Chloride 100 ml @ 100 mls/hr Q1H IV ; Start 06/25/17 at 11:00; Stop 06/25/17 at 12:59; Status Cancel Potassium Chloride 100 ml @ 50 mls/hr ONCE ONCE IV Last administered on 06/25 10:54; Start 06/25/17 at 10:45; Stop 06/25/17 at 12:44; Status DC Acetaminophen/ Hydrocodone Bitart ([place] 5-325 Mg) 1 tab Q4H PRN NG PAIN SCALE 3 TO 5; Start 06/26/17 at 06:15 Acetaminophen/ Hydrocodone Bitart ([place] 7.5-325 Mg) 1 tab Q4H PRN NG PAIN SCALE 6 TO 10; Start 06/26/17 at 06:15 Acetaminophen (Tylenol) 650 mg Q4H PRN NG TEMP > 100.4; Start 06/26/17 at 06: 15 Acetaminophen (Tylenol) 650 mg Q6H PRN NG PAIN SCALE 1 TO 2; Start 06/26/17 at 08:15 Amlodipine Besylate (Norvasc) 5 mg DAILY NG Last administered on 06/27/17 08: 08; Start 06/26/17 at 09:00 Aspirin (Aspirin Chew) 81 mg DAILY NG Last administered on 06/27/17 08:09; Start 06/26/17 at 09:00 Cholestyramine Resin (Questran 4 Gm Pkt) 4 gm Q6HR NG Last administered on 04:48; Start 06/26/17 at 06:00 Clopidogrel Bisulfate (Plavix) 75 mg EVERY OTHER DAY NG Last administered on 06/27/17 08:08; Start 06/27/17 at 09:00 Lactobacillus Acidophilus (Lactinex) 1 tab Q12HR NG Last administered on 08:07; Start 06/26/17 at 09:00 Patient Own Medication PT OWN MED: Budeson... DAILY NG ; Start 06/26/17 at 09: 00; Status Future Hold Pravastatin Sodium (Pravachol) 20 mg HS NG Last administered on 06/26/17 20: 42; Start 06/26/17 at 21:00 Sulfasalazine (Azulfidine Ec) 500 mg Q8HR .XX ; Start 06/26/17 at 06:00; Status UNV Potassium Chloride/Sodium Chloride 1,000 ml @ 125 mls/hr Q8H IV Last administered on 06/27/17 02:38; Start 06/26/17 at 06:00 Levothyroxine Sodium (Synthroid) 50 mcg DAILY@0600 PO Last administered on 04:48; Start 06/26/17 at 06:00 Potassium Bicarb/ Potassium Chloride (K-Lyte Cl Eff) 25 meq ONCE ONCE PO Last administered on 06/26/17 08:56; Start 06/26/17 at 06:15; Stop 06/26/17 at 06:22; Status DC Sulfasalazine (Azulfidine) 500 mg Q8HR NG Last administered on 06/27/17 04:49 ; Start 06/26/17 at 06:30 Prednisone (Deltasone) 20 mg TID PO Last administered on 06/27/17 08:08; Start 06/26/17 at 13:00 Metronidazole (Flagyl) 500 mg Q6HR PO Last administered on 06/27/17 04:48; Start 06/26/17 at 18:00 Fluconazole (Diflucan) 100 mg DAILY PO Last administered on 06/27/17 08:08; Start 06/27/17 at 09:00; Stop 07/05/17 at 08:59 A/P Problem List: (1) Sepsis ICD Code: A41.9 - Sepsis, unspecified organism (2) Metabolic encephalopathy ICD Code: G93.41 - Metabolic encephalopathy (3) Acute kidney injury ICD Code: N17.9 - Acute kidney failure, unspecified Status: Acute (4) Low bicarbonate level ICD Code: E87.8 - Other disorders of electrolyte and fluid balance, not elsewhere classified Status: Acute (5) Hypothermia ICD Code: T68.XXXA - Hypothermia, initial encounter Status: Acute (6) Hypokalemia ICD Code: E87.6 - Hypokalemia Status: Acute Assessment and Plan 71-year-old female with Sepsis. Resolved Monica UTI. Continue Diflucan Abdominal tenderness with distended gallbladder. LFTs within normal limits. Leukocytosis improving. No pain/tenderness ct Flagyl. Pain management with IV morphine. Consider GS consult Previous history of C. difficile and collagenous colitis. Repeat C. difficile negative. Discussed with RN to obtain complete med list from senior care. Continue Azulfidine and Entocort not on formulary switched to prednisone. Consulted GI 2/2 profuse diarrhea leading to SONIA. Also on Flagyl. Follow-up stool studies Metabolic/septic encephalopathy likely secondary to acute kidney injury and infection. CT Head noted and review by me without any acute finding. Improving. Neurochecks. If worse consider brain MRI and EEG Dysphagia. Improving. Start pured diet and switch tube feeding via NGT to nocturnal times. Aspiration precautions. Consult dietitian for tube feeding recommendations. Hypoglycemia secondary to nothing by mouth status. Improving. Monitor fingersticks and continue D5 prn. Hypoglycemia protocol Acute kidney injury with acidosis secondary to dehydration and sepsis. Nonoliguric. Likely has ATN may need hemodialysis. Improving. Continue 1/4 S with sodium bicarbonate. Avoid nephrotoxins. Consulted nephrology Hypokalemia secondary to diarrhea. Improved. Replace aggressively as long as patient has adequate urine output. RESOLVED Chronic medical conditions of anemia, hypertension, coronary artery disease, CVA and hypothyroidism. Continue outpatient medications as appropriate DVT prophylaxis: Bilateral SCDs and subcutaneous heparin Discharge Planning WILL NEED SNF Problem Qualifiers (1) Hypothermia: Qualified Codes: T68.XXXA - Hypothermia, initial encounter Carloz Thomas DO Jun 27, 2017 10:28
[2017-06-27] MEDS: ONDANSETRON HCL 4 MG/2 ML VIAL IVP PRN (10:51)
[2017-06-27] MEDS: ACETAMINOPHEN/HYDROcodone 325 MG/7.5 MG TAB NG PRN ×3 (10:51→23:57)
--- NOTE | 2017-06-27 12:31 | HHI.NPPN ---
Subjective History of Present Illness 71-year-old female with past medical history of hypertension, ischemic heart disease, history of hepatitis B, history of alcoholism in the past, cerebrovascular accident, hypothyroidism who was transferred here from the nursing facility because of altered mental status and diarrhea. I was called to see the patient because of very high BUN and creatinine. Additional Remarks Patient is alert, not in distress, eating better. Objective Data Data 06/27/17 06/28/17 19:00 07:00 Intake Total 0 ml Balance 0 ml Intake Oral 0 ml Vital Signs Date Time Temp Pulse Resp B/P (MAP) Pulse Ox O2 Delivery O2 Flow Rate FiO2 06/27/17 08:00 96.9 81 22 123/68 (86) 95 06/27/17 04:00 96.6 78 16 143/67 (92) 96 06/27/17 02:22 96.2 79 16 146/70 (95) 95 06/27/17 00:00 78 06/27/17 00:00 98.2 78 14 135/65 (88) 95 06/26/17 22:00 93 06/26/17 20:00 100.0 99 19 139/69 (92) 92 06/26/17 20:00 99 06/26/17 19:00 Room Air 06/26/17 18:00 105 06/26/17 16:00 97 06/26/17 16:00 98.9 97 19 144/69 (94) 93 06/26/17 14:00 99 -: 06/25/17 0706 06/27/17 0551 Physical Exam General Appearance: No Acute Distress, Comfortable, Anxious Eyes Eye Exam: Pupils Equal Neck Neck Exam: Neck Supple Pulmonary Resp Exam: Breath Sounds Equal, No Distress, Rhonchi, Decreased Bases Cardiology CV Exam: Regular, Normal Sinus Rhythm Gastrointestinal/Abdomen GI Exam: Soft, Non-Tender, Bowel Sounds Present Extremeties Extremities Exam: No Edema Neurologic Neuro Exam: Alert, Awake Psychiatric Psych Exam: Appropriate Responses Assessment/Plan Assessment Summary: SONIA/Acute Renal Failure Problem List: (1) Anemia ICD Codes: D64.9 - Anemia, unspecified (2) Altered mental status ICD Codes: R41.82 - Altered mental status, unspecified Status: Acute (3) Metabolic encephalopathy ICD Codes: G93.41 - Metabolic encephalopathy (4) Low bicarbonate level ICD Codes: E87.8 - Other disorders of electrolyte and fluid balance, not elsewhere classified Status: Acute (5) Diarrhea ICD Codes: R19.7 - Diarrhea, unspecified Status: Acute (6) Hypothermia ICD Codes: T68.XXXA - Hypothermia, initial encounter Status: Acute (7) Acute kidney injury ICD Codes: N17.9 - Acute kidney failure, unspecified Status: Acute Plan Patient has Acute kidney injury. Urine Na. is low and Eosinophils is negative. BP is better, Continue IVF with NaHco3. Urine out put is low. Most likely has ATN. Creatinine continue to improve. Na. is elevated, IVF changed to 1/2NS Urine out put is still low. Continue IVF and started on GT feeding. Follow the urine out put and BMP. Problem Qualifiers (1) Anemia: Qualified Codes: D64.9 - Anemia, unspecified (2) Altered mental status: Qualified Codes: R41.82 - Altered mental status, unspecified (3) Diarrhea: Qualified Codes: R19.7 - Diarrhea, unspecified (4) Hypothermia: Qualified Codes: T68.XXXA - Hypothermia, initial encounter Javid Benson MD Jun 27, 2017 12:31
--- NOTE | 2017-06-27 15:08 | HHI.GIFU ---
Subjective Remarks REsting in bed in NAD. Eating some PO, anum nightly TF. More alert today but still partly confused. (Connie Nicholson) Objective Vitals I&O Vital Signs Date Time Temp Pulse Resp B/P (MAP) Pulse Ox O2 Delivery O2 Flow Rate FiO2 06/27/17 12:00 97.8 82 19 154/75 (101) 97 06/27/17 08:00 96.9 81 22 123/68 (86) 95 06/27/17 04:00 96.6 78 16 143/67 (92) 96 06/27/17 02:22 96.2 79 16 146/70 (95) 95 06/27/17 00:00 78 06/27/17 00:00 98.2 78 14 135/65 (88) 95 06/26/17 22:00 93 06/26/17 20:00 100.0 99 19 139/69 (92) 92 06/26/17 20:00 99 06/26/17 19:00 Room Air 06/26/17 18:00 105 06/26/17 16:00 97 06/26/17 16:00 98.9 97 19 144/69 (94) 93 I/O 06/26/17 06/26/17 06/26/17 06/27/17 06/27/17 06/27/17 07:00 15:00 23:00 07:00 15:00 23:00 Intake Total 1253 ml 587 ml 1592 ml 437 ml 0 ml Output Total 950 ml 1100 ml 1450 ml 1600 ml Balance 303 ml 587 ml 492 ml -1013 ml -1600 ml Intake Oral 0 ml 300 ml 240 ml 0 ml IV Total 1233 ml 587 ml 1000 ml Tube Feeding 20 ml 292 ml 197 ml Output Urine Total 250 ml 300 ml 250 ml 400 ml Stool Total 700 ml 800 ml 1200 ml 1200 ml Gastric Drainage Total 0 ml Laboratory Laboratory Tests Test 06/27/17 05:51 Blood Urea Nitrogen 23 Creatinine 2.81 Random Glucose 181 Total Protein 5.1 Albumin 2.1 Calcium Level 8.5 Magnesium Level 1.7 Alkaline Phosphatase 108 Aspartate Amino Transf (AST/SGOT) 12 Alanine Aminotransferase (ALT/SGPT) 9 Total Bilirubin 0.4 Sodium Level 144 Potassium Level 5.2 Chloride Level 120 Carbon Dioxide Level 17.3 Anion Gap 7 Estimat Glomerular Filtration Rate 17 Date/Time Source Procedure Growth Status 06/22/17 12:30 Blood Peripheral Aerobic Blood Culture - Final NO GROWTH IN 5 DAYS Complete 06/22/17 12:30 Blood Peripheral Anaerobic Blood Culture - Final NO GROWTH IN 5 DAYS Complete 06/22/17 12:25 Urine Catheterized Urine Urine Culture - Final Monica Tropicalis Complete Physical Exam HEENT: Pupils round and reactive to light; normocephalic; atraumatic CHEST: Diminished CARDIAC: Regular rate and rhythm ABDOMEN: Flat, Soft, nondistended, nontender, bowel sounds are present in all four quadrants. liquid brown stool rectal bag EXTREMITIES: No clubbing, cyanosis, or edema. SKIN: Normal; no rash; no jaundice. [employer]: No focal deficits; alert and oriented times 2 (Connie Nicholson) Assessment and Plan Plan - diarrhea - likely Collagenous Colitis, recurrent. Recent hospitalization at [facility] with Colonoscopy. Patient was discharged with steroid taper and Sulfasalazine. Stool studies previous admission neg. 06/22 c diff neg. nightly TF via NGT, anum pureed diet as well. Abdominal CT shows some possible gallbladder disease, possible enteritis - anemia - hypochromic, microcytic HH relatively stable PLAN - continue TF - pureed diet with thin liquids per ST - palliative care follow up, daughter is a decision maker but is currently incarcerated. - PO prednisone - supportive care This pt seen by myself and DR Robbins and this note is written on his behalf (Connie Nicholson) Physician Comments Agree with above, (Kayli Robbins MD) Connie Nicholson Jun 27, 2017 15:08 Kayli Robbins MD Jun 27, 2017 15:16
[2017-06-27] MEDS: PRAVASTATIN SOD 20 MG TAB NG SCH (21:21)
[2017-06-27] MEDS: LOW DOSE INSULIN NOVOLOG SUPPLEMENTAL SCALE SQ SCH (21:33)
[2017-06-28] VITALS: BP 124/73; PULSE 83; RESP 16; TEMP 97.5; O2SAT 96
[2017-06-28] MEDS: FAMOTIDINE 20 MG/2 ML VIAL IV PUSH SCH ×2 (05:06→17:14)
[2017-06-28] MEDS: metroNIDAZOLE 500 MG TAB PO SCH ×3 (05:06→17:14)
[2017-06-28] MEDS: sulfaSALAzine 500 MG TAB NG SCH ×3 (05:06→20:34)
[2017-06-28] MEDS: LEVOTHYROXINE SODIUM 50 MCG TAB PO SCH (05:06)
[2017-06-28] MEDS: CHOLESTYRAMINE 4 GM PACKET NG SCH ×3 (05:07→18:00)
[2017-06-28] MEDS: 1/2 NS + KCL 20 MEQ INJ 1,000 ML IV SCH ×3 (05:07→22:03)
[2017-06-28 08:00] VITALS: BP 129/77; PULSE 78; RESP 19; TEMP 96.9; O2SAT 96
[2017-06-28] MEDS: LOW DOSE INSULIN NOVOLOG SUPPLEMENTAL SCALE SQ SCH ×4 (08:00→20:35)
[2017-06-28] MEDS: amLODIPine BESYLATE 5 MG TAB NG SCH (08:03)
[2017-06-28] MEDS: LACTOBACILLUS ACIDOPHILUS TAB NG SCH ×2 (08:03→20:34)
[2017-06-28] MEDS: ASPIRIN 81 MG CHEW TAB NG SCH (08:03)
[2017-06-28] MEDS: predniSONE 20 MG TAB PO SCH ×3 (08:04→17:14)
[2017-06-28] MEDS: FLUCONAZOLE 100 MG TAB PO SCH (08:04)
[2017-06-28] MEDS: HEPARIN SODIUM - SQ 10,000 UNITS/ML VIAL SQ SCH ×2 (08:06→20:35)
[2017-06-28] MEDS: SODIUM CHLORIDE 0.9% FLUSH 10 ML FLUSH IV FLUSH SCH ×2 (08:06→20:35)
--- NOTE | 2017-06-28 09:49 | HHI.GIFU ---
Subjective Remarks Attempting to eat pured diet and thin liquids, but complained in that throat is sore with NG tube. Awake, discussed NG tube coming out and the need to continue to eat and drink Diarrhea continues, C. difficile negative. Rectal Sandoval continues Afebrile (Mary Turner) Objective Vitals I&O Vital Signs Date Time Temp Pulse Resp B/P (MAP) Pulse Ox O2 Delivery O2 Flow Rate FiO2 06/28/17 08:00 96.9 78 19 129/77 (94) 96 06/28/17 00:00 97.5 83 16 124/73 (90) 96 06/27/17 20:00 97.1 86 16 133/74 (93) 97 06/27/17 16:00 96.9 87 20 127/73 (91) 96 06/27/17 12:00 97.8 82 19 154/75 (101) 97 I/O 06/27/17 06/27/17 06/27/17 06/28/17 06/28/17 06/28/17 07:00 15:00 23:00 07:00 15:00 23:00 Intake Total 437 ml 0 ml 1480 ml 1135 ml 120 ml Output Total 1450 ml 1600 ml 2200 ml 1550 ml Balance -1013 ml -1600 ml -720 ml -415 ml 120 ml Intake Oral 240 ml 0 ml 480 ml 120 ml IV Total 1000 ml 1135 ml Tube Feeding 197 ml Output Urine Total 250 ml 400 ml 1200 ml 550 ml Stool Total 1200 ml 1200 ml 1000 ml 1000 ml Laboratory Date/Time Source Procedure Growth Status 06/22/17 12:30 Blood Peripheral Aerobic Blood Culture - Final NO GROWTH IN 5 DAYS Complete 06/22/17 12:30 Blood Peripheral Anaerobic Blood Culture - Final NO GROWTH IN 5 DAYS Complete 06/22/17 12:25 Urine Catheterized Urine Urine Culture - Final Monica Tropicalis Complete Imaging Last Impressions Gall Bladder Ultrasound 06/23/17 0000 Signed Impressions: Service Date/Time: Friday, June 23, 2017 14:13 - CONCLUSION: Gallbladder is quite distended. A small right pleural effusion. Pacheco Che MD Head CT 06/22/17 1152 Signed Impressions: Service Date/Time: Thursday, June 22, 2017 13:03 - CONCLUSION: 1. Senescent changes without acute intracranial abnormality. Clinton Walter MD Chest X-Ray 06/22/17 1152 Signed Impressions: Service Date/Time: Thursday, June 22, 2017 12:39 - CONCLUSION: 1. Platelike bilateral lower lung zone airspace disease consistent with atelectasis. Clinton Walter MD Abdomen/Pelvis CT 06/22/17 0000 Signed Impressions: Service Date/Time: Thursday, June 22, 2017 14:44 - CONCLUSION: 1. Diffusely fluid-filled slightly prominent colon without significant colonic wall thickening. Although nonspecific, findings likely reflect enteritis. Although less likely, very early infectious colitis cannot be excluded. 2. Significantly distended gallbladder without significant biliary ductal dilatation. This may be due to prolonged fasting. Clinical correlation is recommended. Consider ultrasound examination if there is significant continued clinical concern. 3. Mild patchy airspace disease at the left lung base, presumably atelectasis. 4. Very minimal trace bilateral pleural effusions. Clinton Walter MD Physical Exam HEENT: Pupils round and reactive to light; normocephalic; atraumatic CHEST: Volumes improved, no rhonchi CARDIAC: Regular rate and rhythm ABDOMEN: Flat, Soft, nondistended, nontender, bowel sounds are present in all four quadrants. liquid brown stool rectal bag, rectal Sandoval EXTREMITIES: No clubbing, cyanosis, or edema. SKIN: Normal; no rash; no jaundice. PORTABLE TRACKMAN: No focal deficits; alert and oriented times 2 (Mary Turner) Assessment and Plan Plan - diarrhea - likely Collagenous Colitis, recurrent. Recent hospitalization at [facility] with Colonoscopy. Patient was discharged with steroid taper and Sulfasalazine. Stool studies previous admission neg. 06/22 c diff neg. nightly TF via NGT, anum pureed diet as well. Abdominal CT shows some possible gallbladder disease, possible enteritis - anemia - hypochromic, microcytic HH relatively stable PLAN - Discontinue NG tube and tube feeds, - Maintain rectal Sandoval for now, still having watery loose stools - pureed diet with thin liquids per ST ordered heart healthy diet -Medical management with by mouth prednisone -Azulfidine continue -Continue Questran -By mouth Flagyl - palliative care follow up, daughter is a decision maker, currently at the hospital - PO prednisone - supportive care This pt seen by myself and DR Robbins and this note is written on his behalf (Mary Turner) Physician Comments Seen and examined, plan as above, oral meds for collagenous colitis resumed, will encourage oral intake and follow up clinically. (Kayli Robbins MD) Mary Turner Jun 28, 2017 09:49 Kayli Robbins MD Jun 28, 2017 15:15
[2017-06-28 12:00] VITALS: BP 134/73; PULSE 92; RESP 20; TEMP 97.8; O2SAT 95
[2017-06-28] MEDS: ACETAMINOPHEN/HYDROcodone 325 MG/7.5 MG TAB NG PRN ×2 (12:00→16:40)
[2017-06-28 12:23] LABS: ANION GAP 8 MEQ/L (5-15); AST (GOT) 14 U/L (15-37); BICARBONATE 10.1 MEQ/L (21.0-32.0); BLOOD UREA NITROGEN 25 MG/DL (7-18); CHLORIDE 119 MEQ/L (98-107); GLOMERULAR FILTRATION RATE 23 ML/MIN (>89); MAGNESIUM 1.4 MG/DL (1.5-2.5); POTASSIUM 5.7 MEQ/L (3.5-5.1); SODIUM (NA) 137 MEQ/L (136-145)
[2017-06-28 12:33] LABS: ALKALINE PHOSPHATASE 120 U/L (45-117); ALT (GPT) 11 U/L (10-53); FREE T4 0.68 NG/DL (0.76-1.46); TOTAL BILIRUBIN ADULT 0.3 MG/DL (0.2-1.0)
[2017-06-28] MEDS: ONDANSETRON HCL 4 MG/2 ML VIAL IVP PRN (12:40)
[2017-06-28 13:04] LABS: AUTOMATED NEUTROPHIL # 11.9 TH/MM3 (1.8-7.7); BASOPHIL % 0.2 % (0.0-2.0); HEMATOCRIT 32.2 % (35.0-46.0); HEMO FLAGS AUTO DIFF; LYMPH % 7.9 % (9.0-44.0); LYMPHOCYTE # 1.1 TH/MM3 (1.0-4.8); MEAN CELL VOLUME 78.5 FL (80.0-100.0); MEAN CORPUSCULAR HEMOGLOBIN 24.4 PG (27.0-34.0); MEAN CORPUSCULAR HGB CONC 31.1 % (32.0-36.0); MONO % 8.1 % (0.0-8.0); NEUT % 83.8 % (16.0-70.0); PLATELET COUNT 501 TH/MM3 (150-450); RED CELL DISTRIBUTION WIDTH 24.9 % (11.6-17.2); WHITE BLOOD COUNT 14.2 TH/MM3 (4.0-11.0)
--- NOTE | 2017-06-28 14:08 | HHI.HCPN ---
Met with Ms. Middleton and her daughter at bedside. Nurse in removing NG tube. Ms. Middleton lethargic, able to make needs known, verbalizes she is having nausea and sore throat (relates this to the NG). She is unable to engage much is goals of care discussion at this time, falls asleep during prolonged conversation. Verbalizes she does not have an appetite and has pain on her bottom from being in bed. Daughter is serving in health care proxy role. She is hopeful her mother will be able increase her caloric intake and get stronger. Gently discussed community DNR to accompany Ms. Middleton upon discharge from the hospital. While daughter confirms DNR status per mom's wishes, she continues to struggle with the idea of losing her mom, declines signing community DNR at this time. Should Ms. Middleton continue to clear mentally she would be able to sign Community DNR for herself. Palliative care will continue to follow and continue to assist with communication and continued goals of care discussion as needed. Will attempt to get Community DNR Order signed prior to Ms. Middleton' discharge from the hospital. Ginny Freeman, ABSORBER OPERATOR Jun 28, 2017 14:08
--- NOTE | 2017-06-28 14:21 | HHI.PR ---
Subjective Remarks Resting in bed reported continuing having diarrhea with abdominal pain 5 out of 10 and positive nausea NG tube still in place, discussed with the nurse reported speech therapy thinking NG tube tube causing the nausea GI okay to remove NG tube Objective Vitals Vital Signs Date Time Temp Pulse Resp B/P (MAP) Pulse Ox O2 Delivery O2 Flow Rate FiO2 06/28/17 12:00 97.8 92 20 134/73 (93) 95 06/28/17 08:00 96.9 78 19 129/77 (94) 96 06/28/17 00:00 97.5 83 16 124/73 (90) 96 06/27/17 20:00 97.1 86 16 133/74 (93) 97 06/27/17 16:00 96.9 87 20 127/73 (91) 96 I/O 06/27/17 06/27/17 06/27/17 06/28/17 06/28/17 06/28/17 07:00 15:00 23:00 07:00 15:00 23:00 Intake Total 437 ml 0 ml 1480 ml 1135 ml 120 ml Output Total 1450 ml 1600 ml 2200 ml 1550 ml Balance -1013 ml -1600 ml -720 ml -415 ml 120 ml Intake Oral 240 ml 0 ml 480 ml 120 ml IV Total 1000 ml 1135 ml Tube Feeding 197 ml Output Urine Total 250 ml 400 ml 1200 ml 550 ml Stool Total 1200 ml 1200 ml 1000 ml 1000 ml Result Diagram: 06/28/17 1112 06/28/17 1112 Objective Remarks GENERAL: This is a well-nourished, well-developed patient, in no apparent distress. SKIN: No rashes, warm and dry HEAD: Atraumatic. Normocephalic. EYES: Pupils equal round and reactive. Extraocular motions intact. No scleral icterus. ENT: NG tube in place NECK: Trachea midline. Supple CARDIOVASCULAR: Regular rate and rhythm without murmurs, gallops, or rubs. RESPIRATORY: Fair air entry bilaterally. No wheezes, rales, or rhonchi. GASTROINTESTINAL: Abdomen soft, non-tender, nondistended. Positive bowel sounds MUSCULOSKELETAL: Extremities without clubbing, cyanosis, or edema. Pedal pulses appreciated NEUROLOGICAL: Awake and alert. Moves all extremity. Normal speech.no focal neurological deficit Procedures none A/P Problem List: (1) Sepsis ICD Code: A41.9 - Sepsis, unspecified organism (2) Metabolic encephalopathy ICD Code: G93.41 - Metabolic encephalopathy (3) Acute kidney injury ICD Code: N17.9 - Acute kidney failure, unspecified Status: Acute (4) Low bicarbonate level ICD Code: E87.8 - Other disorders of electrolyte and fluid balance, not elsewhere classified Status: Acute (5) Hypothermia ICD Code: T68.XXXA - Hypothermia, initial encounter Status: Acute (6) Hypokalemia ICD Code: E87.6 - Hypokalemia Status: Acute Assessment and Plan 06/28: Continue following with GI and renal, continue Flagyl Questran prednisone and Azulfidine, repeat BMP and CBC in a.m., will remove NG tube start diet per speech therapy recommendation and monitor course A/P: 71-year-old female with Sepsis. Resolved Monica UTI. Continue Diflucan Abdominal tenderness with distended gallbladder. LFTs within normal limits. Leukocytosis improving. No pain/tenderness ct Flagyl. Pain management with IV morphine. Consider GS consult Previous history of C. difficile and collagenous colitis. Repeat C. difficile negative. Continue Azulfidine and Entocort not on formulary switched to prednisone. Consulted GI 2/2 profuse diarrhea leading to OSNIA. Also on Flagyl. Follow-up stool studies Metabolic/septic encephalopathy likely secondary to acute kidney injury and infection. CT Head noted and review by me without any acute finding. Improving. Neurochecks. Dysphagia. Improving. Start pured diet and switch tube feeding via NGT to nocturnal times. Aspiration precautions. Speech therapy following Hypoglycemia episode mostly due to npo status, now Improving. Monitor fingersticks and continue D5 prn. Hypoglycemia protocol Acute kidney injury with metabolic acidosis secondary to dehydration/diarrhea and sepsis. Nonoliguric. Likely has ATN . Avoid nephrotoxins. Urology following Hypokalemia secondary to diarrhea. Improved. Replace aggressively as long as patient has adequate urine output. RESOLVED Chronic medical conditions of anemia, hypertension, coronary artery disease, CVA and hypothyroidism. Continue outpatient medications as appropriate DVT prophylaxis: Bilateral SCDs and subcutaneous heparin Problem Qualifiers (1) Hypothermia: Qualified Codes: T68.XXXA - Hypothermia, initial encounter Chance Tello MD Jun 28, 2017 14:21
[2017-06-28 15:17] LABS: HEMOGLOBIN A1a 1.6 %; HEMOGLOBIN A1b 1.7 %; HEMOGLOBIN Ao 83.7 %; HEMOGLOBIN LA1C 3.2 %; HEMOGLOBIN P3 5.7 %
--- NOTE | 2017-06-28 15:19 | HHI.NPPN ---
Subjective History of Present Illness 71-year-old female with past medical history of hypertension, ischemic heart disease, history of hepatitis B, history of alcoholism in the past, cerebrovascular accident, hypothyroidism who was transferred here from the nursing facility because of altered mental status and diarrhea. I was called to see the patient because of very high BUN and creatinine. Additional Remarks Patient is alert, not in distress, now eating better. Objective Data Data 06/28/17 06/29/17 19:00 07:00 Intake Total 120 ml Balance 120 ml Intake Oral 120 ml Vital Signs Date Time Temp Pulse Resp B/P (MAP) Pulse Ox O2 Delivery O2 Flow Rate FiO2 06/28/17 12:00 97.8 92 20 134/73 (93) 95 06/28/17 08:00 96.9 78 19 129/77 (94) 96 06/28/17 00:00 97.5 83 16 124/73 (90) 96 06/27/17 20:00 97.1 86 16 133/74 (93) 97 06/27/17 16:00 96.9 87 20 127/73 (91) 96 -: 06/28/17 1112 06/28/17 1112 Physical Exam General Appearance: No Acute Distress, Comfortable, Anxious Eyes Eye Exam: Pupils Equal Neck Neck Exam: Neck Supple Pulmonary Resp Exam: Breath Sounds Equal, No Distress, Rhonchi, Decreased Bases Cardiology CV Exam: Regular, Normal Sinus Rhythm Gastrointestinal/Abdomen GI Exam: Soft, Non-Tender, Bowel Sounds Present Extremeties Extremities Exam: No Edema Neurologic Neuro Exam: Alert, Awake Psychiatric Psych Exam: Appropriate Responses Assessment/Plan Assessment Summary: SONIA/Acute Renal Failure Problem List: (1) Anemia ICD Codes: D64.9 - Anemia, unspecified (2) Altered mental status ICD Codes: R41.82 - Altered mental status, unspecified Status: Acute (3) Metabolic encephalopathy ICD Codes: G93.41 - Metabolic encephalopathy (4) Low bicarbonate level ICD Codes: E87.8 - Other disorders of electrolyte and fluid balance, not elsewhere classified Status: Acute (5) Diarrhea ICD Codes: R19.7 - Diarrhea, unspecified Status: Acute (6) Hypothermia ICD Codes: T68.XXXA - Hypothermia, initial encounter Status: Acute (7) Acute kidney injury ICD Codes: N17.9 - Acute kidney failure, unspecified Status: Acute Plan Patient has Acute kidney injury. Urine Na. is low and Eosinophils is negative. BP is better, Continue IVF with NaHco3. Urine out put is low. Most likely has ATN. Creatinine continue to improve. Na. is elevated, IVF changed to 1/2NS Urine out put is still low. Now eating better. Problem Qualifiers (1) Anemia: Qualified Codes: D64.9 - Anemia, unspecified (2) Altered mental status: Qualified Codes: R41.82 - Altered mental status, unspecified (3) Diarrhea: Qualified Codes: R19.7 - Diarrhea, unspecified (4) Hypothermia: Qualified Codes: T68.XXXA - Hypothermia, initial encounter Javid Benson MD Jun 28, 2017 15:19
[2017-06-28 16:00] VITALS: BP_SYST 145; BP_SYST 182; BP_DIAS 65; BP_DIAS 83; PULSE 116; PULSE 86; RESP 19; RESP 20; TEMP 96.9; TEMP 99.9; O2SAT 96; O2SAT 98
[2017-06-28 20:00] VITALS: BP 119/81; PULSE 93; RESP 18; TEMP 97.2; O2SAT 96
[2017-06-28] MEDS: PRAVASTATIN SOD 20 MG TAB NG SCH (20:34)
[2017-06-29] VITALS: BP 105/68; PULSE 84; RESP 18; TEMP 96.5; O2SAT 93
[2017-06-29] MEDS: metroNIDAZOLE 500 MG TAB PO SCH ×5 (00:43→23:24)
[2017-06-29] MEDS: CHOLESTYRAMINE 4 GM PACKET NG SCH ×5 (00:43→23:24)
[2017-06-29] MEDS: sulfaSALAzine 500 MG TAB NG SCH ×3 (05:30→21:33)
[2017-06-29] MEDS: 1/2 NS + KCL 20 MEQ INJ 1,000 ML IV SCH (05:30)
[2017-06-29] MEDS: FAMOTIDINE 20 MG/2 ML VIAL IV PUSH SCH ×2 (05:30→17:55)
[2017-06-29] MEDS: LEVOTHYROXINE SODIUM 50 MCG TAB PO SCH (05:30)
[2017-06-29] MEDS: ACETAMINOPHEN/HYDROcodone 325 MG/5 MG TAB NG PRN (06:26)
[2017-06-29 08:00] VITALS: BP 120/73; PULSE 82; RESP 22; TEMP 96; O2SAT 93
[2017-06-29] MEDS: LOW DOSE INSULIN NOVOLOG SUPPLEMENTAL SCALE SQ SCH ×4 (08:00→19:59)
[2017-06-29] MEDS: LACTOBACILLUS ACIDOPHILUS TAB NG SCH ×2 (09:56→19:54)
[2017-06-29] MEDS: predniSONE 20 MG TAB PO SCH ×3 (09:57→17:55)
[2017-06-29] MEDS: HEPARIN SODIUM - SQ 10,000 UNITS/ML VIAL SQ SCH ×2 (09:57→19:55)
[2017-06-29] MEDS: amLODIPine BESYLATE 5 MG TAB NG SCH (09:57)
[2017-06-29] MEDS: CLOPIDOGREL 75 MG TAB NG SCH (09:57)
[2017-06-29] MEDS: ASPIRIN 81 MG CHEW TAB NG SCH (09:57)
[2017-06-29] MEDS: FLUCONAZOLE 100 MG TAB PO SCH (09:57)
[2017-06-29 12:00] VITALS: BP 127/71; PULSE 94; RESP 17; TEMP 96.4; O2SAT 90
[2017-06-29 12:03] LABS: POTASSIUM 5.3 MEQ/L (3.5-5.1)
[2017-06-29] MEDS: ACETAMINOPHEN/HYDROcodone 325 MG/7.5 MG TAB NG PRN ×3 (12:26→23:25)
[2017-06-29 12:31] LABS: BICARBONATE 10.2 MEQ/L (21.0-32.0)
--- NOTE | 2017-06-29 15:08 | HHI.PR ---
Subjective Remarks NG tube is out, patient doing well with by mouth diet, no nausea, afebrile Objective Vitals Vital Signs Date Time Temp Pulse Resp B/P (MAP) Pulse Ox O2 Delivery O2 Flow Rate FiO2 06/29/17 12:00 96.4 94 17 127/71 (89) 90 06/29/17 08:00 96.0 82 22 120/73 (89) 93 06/29/17 00:00 96.5 84 18 105/68 (80) 93 06/28/17 20:00 97.2 93 18 119/81 (94) 96 06/28/17 16:00 99.9 116 19 182/83 (116) 96 I/O 06/28/17 06/28/17 06/28/17 06/29/17 06/29/17 06/29/17 07:00 15:00 23:00 07:00 15:00 23:00 Intake Total 1135 ml 120 ml 480 ml Output Total 1550 ml 2050.0 ml 1000 ml 1000 ml Balance -415 ml 120 ml -1570.0 ml -1000 ml -1000 ml Intake Oral 120 ml 480 ml IV Total 1135 ml Output Urine Total 550 ml 800 ml 1000 ml Stool Total 1000 ml 1200 ml 1000 ml Tube Feeding Residual Discard 50.0 ml # Bowel Movements 1 Result Diagram: 06/28/17 1112 06/29/17 1105 Objective Remarks GENERAL: This is a well-nourished, well-developed patient, in no apparent distress. SKIN: No rashes, warm and dry HEAD: Atraumatic. Normocephalic. EYES: Pupils equal round and reactive. Extraocular motions intact. No scleral icterus. ENT: NG tube in place NECK: Trachea midline. Supple CARDIOVASCULAR: Regular rate and rhythm without murmurs, gallops, or rubs. RESPIRATORY: Fair air entry bilaterally. No wheezes, rales, or rhonchi. GASTROINTESTINAL: Abdomen soft, non-tender, nondistended. Positive bowel sounds MUSCULOSKELETAL: Extremities without clubbing, cyanosis, or edema. Pedal pulses appreciated NEUROLOGICAL: Awake and alert. Moves all extremity. Normal speech.no focal neurological deficit Procedures none A/P Problem List: (1) Sepsis ICD Code: A41.9 - Sepsis, unspecified organism (2) Metabolic encephalopathy ICD Code: G93.41 - Metabolic encephalopathy (3) Acute kidney injury ICD Code: N17.9 - Acute kidney failure, unspecified Status: Acute (4) Low bicarbonate level ICD Code: E87.8 - Other disorders of electrolyte and fluid balance, not elsewhere classified Status: Acute (5) Hypothermia ICD Code: T68.XXXA - Hypothermia, initial encounter Status: Acute (6) Hypokalemia ICD Code: E87.6 - Hypokalemia Status: Acute Assessment and Plan 06/28: Continue following with GI and renal, continue Flagyl Questran prednisone and Azulfidine, repeat BMP and CBC in a.m., will remove NG tube start diet per speech therapy recommendation and monitor course 06/29: NG tube is out, doing well with by mouth diet, no nausea no vomiting, continue monitoring BMP and CBC, patient requested ensure with meals, creatinine continue to improve 2.14-1.9, will change iv fluid to normal saline and DC half-normal saline with potassium since potassium is 5, patient had a midline leakage will remove in try peripheral any other hand A/P: 71-year-old female with Sepsis. Resolved Monica UTI. Continue Diflucan Abdominal tenderness with distended gallbladder. LFTs within normal limits. Leukocytosis improving. No pain/tenderness ct Flagyl. Pain management with IV morphine. Consider GS consult Previous history of C. difficile and collagenous colitis. Repeat C. difficile negative. Continue Azulfidine and Entocort not on formulary switched to prednisone. Consulted GI 2/2 profuse diarrhea leading to SONIA. Also on Flagyl. Follow-up stool studies Metabolic/septic encephalopathy likely secondary to acute kidney injury and infection. CT Head noted and review by me without any acute finding. Improving. Neurochecks. Dysphagia. Improving. Start pured diet and switch tube feeding via NGT to nocturnal times. Aspiration precautions. Speech therapy following Hypoglycemia episode mostly due to npo status, now Improving. Monitor fingersticks and continue D5 prn. Hypoglycemia protocol Acute kidney injury with metabolic acidosis secondary to dehydration/diarrhea and sepsis. Nonoliguric. Likely has ATN . Avoid nephrotoxins. Urology following Hypokalemia secondary to diarrhea. Improved. Replace aggressively as long as patient has adequate urine output. RESOLVED Chronic medical conditions of anemia, hypertension, coronary artery disease, CVA and hypothyroidism. Continue outpatient medications as appropriate DVT prophylaxis: Bilateral SCDs and subcutaneous heparin Problem Qualifiers (1) Hypothermia: Qualified Codes: T68.XXXA - Hypothermia, initial encounter Chance Tello MD Jun 29, 2017 15:08
--- NOTE | 2017-06-29 15:36 | HHI.GIFU ---
Subjective Remarks Patient is resting in bed, still with significant diarrhea. Daughter by bed side. She is tolerating soft diet okay, no vomiting or abd pain, no hematochezia or melena (JacksonzeyadDiamond) Objective Vitals I&O Vital Signs Date Time Temp Pulse Resp B/P (MAP) Pulse Ox O2 Delivery O2 Flow Rate FiO2 06/29/17 12:00 96.4 94 17 127/71 (89) 90 06/29/17 08:00 96.0 82 22 120/73 (89) 93 06/29/17 00:00 96.5 84 18 105/68 (80) 93 06/28/17 20:00 97.2 93 18 119/81 (94) 96 06/28/17 16:00 99.9 116 19 182/83 (116) 96 I/O 06/28/17 06/28/17 06/28/17 06/29/17 06/29/17 06/29/17 07:00 15:00 23:00 07:00 15:00 23:00 Intake Total 1135 ml 120 ml 480 ml Output Total 1550 ml 2050.0 ml 1000 ml 1000 ml Balance -415 ml 120 ml -1570.0 ml -1000 ml -1000 ml Intake Oral 120 ml 480 ml IV Total 1135 ml Output Urine Total 550 ml 800 ml 1000 ml Stool Total 1000 ml 1200 ml 1000 ml Tube Feeding Residual Discard 50.0 ml # Bowel Movements 1 Laboratory Laboratory Tests Test 06/29/17 11:05 Blood Urea Nitrogen 27 Creatinine 1.90 Random Glucose 168 Calcium Level 8.2 Sodium Level 138 Potassium Level 5.3 Chloride Level 119 Carbon Dioxide Level 10.2 Anion Gap 9 Estimat Glomerular Filtration Rate 26 Date/Time Source Procedure Growth Status 06/22/17 12:30 Blood Peripheral Aerobic Blood Culture - Final NO GROWTH IN 5 DAYS Complete 06/22/17 12:30 Blood Peripheral Anaerobic Blood Culture - Final NO GROWTH IN 5 DAYS Complete 06/22/17 12:25 Urine Catheterized Urine Urine Culture - Final Monica Tropicalis Complete Imaging Last Impressions Gall Bladder Ultrasound 06/23/17 0000 Signed Impressions: Service Date/Time: Friday, June 23, 2017 14:13 - CONCLUSION: Gallbladder is quite distended. A small right pleural effusion. Pacheco Che MD Head CT 06/22/17 1152 Signed Impressions: Service Date/Time: Thursday, June 22, 2017 13:03 - CONCLUSION: 1. Senescent changes without acute intracranial abnormality. Clinton Walter MD Chest X-Ray 06/22/17 1152 Signed Impressions: Service Date/Time: Thursday, June 22, 2017 12:39 - CONCLUSION: 1. Platelike bilateral lower lung zone airspace disease consistent with atelectasis. Clinton Walter MD Abdomen/Pelvis CT 06/22/17 0000 Signed Impressions: Service Date/Time: Thursday, June 22, 2017 14:44 - CONCLUSION: 1. Diffusely fluid-filled slightly prominent colon without significant colonic wall thickening. Although nonspecific, findings likely reflect enteritis. Although less likely, very early infectious colitis cannot be excluded. 2. Significantly distended gallbladder without significant biliary ductal dilatation. This may be due to prolonged fasting. Clinical correlation is recommended. Consider ultrasound examination if there is significant continued clinical concern. 3. Mild patchy airspace disease at the left lung base, presumably atelectasis. 4. Very minimal trace bilateral pleural effusions. Clinton Walter MD Physical Exam HEENT: Pupils round and reactive to light; normocephalic; atraumatic CHEST: Volumes improved, no rhonchi CARDIAC: Regular rate and rhythm ABDOMEN: Flat, Soft, nondistended, nontender, bowel sounds are present in all four quadrants. liquid brown stool rectal bag, rectal Sandoval EXTREMITIES: No clubbing, cyanosis, or edema. SKIN: Normal; no rash; no jaundice. PROCESS ENGINEERING TECHNICIAN: No focal deficits; alert and oriented (Diamond Rodgers) Assessment and Plan Plan - diarrhea - likely Collagenous Colitis, recurrent. Recent hospitalization at [facility] with Colonoscopy. Patient was discharged with steroid taper and Sulfasalazine. Stool studies previous admission neg. 06/22 c diff neg. anum pureed diet Abdominal CT shows some possible gallbladder disease, possible enteritis - anemia - hypochromic, microcytic HH stable, no bleeding reported - S/P DNR status PLAN - pureed diet with thin liquids per ST ordered heart healthy diet - Monitor fecal out put -Continue Questran - cont Flagyl - Azulfidine - PO prednisone - consider CE as an OP - supportive care This pt seen by myself and DR Robbins and this note is written on his behalf (Diamond Rodgers) Physician Comments Seen and examined, plan as above. (Kayli Robbins MD) Diamond Rodgers Jun 29, 2017 15:36 Kayli Robbins MD Jun 29, 2017 18:48
[2017-06-29 16:00] VITALS: BP 158/74; PULSE 93; RESP 16; TEMP 97; O2SAT 93
--- NOTE | 2017-06-29 16:33 | HHI.NPPN ---
Subjective History of Present Illness 71-year-old female with past medical history of hypertension, ischemic heart disease, history of hepatitis B, history of alcoholism in the past, cerebrovascular accident, hypothyroidism who was transferred here from the nursing facility because of altered mental status and diarrhea. I was called to see the patient because of very high BUN and creatinine. Additional Remarks Patient is alert, not in distress, no SOB, has generalized weakness. Objective Data Data 06/29/17 06/30/17 19:00 07:00 Output Total 1000 ml Balance -1000 ml Stool Total 1000 ml Vital Signs Date Time Temp Pulse Resp B/P (MAP) Pulse Ox O2 Delivery O2 Flow Rate FiO2 06/29/17 12:00 96.4 94 17 127/71 (89) 90 06/29/17 08:00 96.0 82 22 120/73 (89) 93 06/29/17 00:00 96.5 84 18 105/68 (80) 93 06/28/17 20:00 97.2 93 18 119/81 (94) 96 -: 06/28/17 1112 06/29/17 1105 Physical Exam General Appearance: No Acute Distress, Comfortable, Anxious Eyes Eye Exam: Pupils Equal Neck Neck Exam: Neck Supple Pulmonary Resp Exam: Breath Sounds Equal, No Distress, Rhonchi, Decreased Bases Cardiology CV Exam: Regular, Normal Sinus Rhythm Gastrointestinal/Abdomen GI Exam: Soft, Non-Tender, Bowel Sounds Present Extremeties Extremities Exam: No Edema Neurologic Neuro Exam: Alert, Awake Psychiatric Psych Exam: Appropriate Responses Assessment/Plan Assessment Summary: SONIA/Acute Renal Failure Problem List: (1) Anemia ICD Codes: D64.9 - Anemia, unspecified (2) Altered mental status ICD Codes: R41.82 - Altered mental status, unspecified Status: Acute (3) Metabolic encephalopathy ICD Codes: G93.41 - Metabolic encephalopathy (4) Low bicarbonate level ICD Codes: E87.8 - Other disorders of electrolyte and fluid balance, not elsewhere classified Status: Acute (5) Diarrhea ICD Codes: R19.7 - Diarrhea, unspecified Status: Acute (6) Hypothermia ICD Codes: T68.XXXA - Hypothermia, initial encounter Status: Acute (7) Acute kidney injury ICD Codes: N17.9 - Acute kidney failure, unspecified Status: Acute Plan Patient has Acute kidney injury. Urine Na. is low and Eosinophils is negative. BP is better, Continue IVF with NaHco3. Urine out put is low. Most likely has ATN. Creatinine continue to improve. K was elevated, was on IVF with Kcl. IVF now stopped. Encourage oral intake. GI is following for diarrhea. Problem Qualifiers (1) Anemia: Qualified Codes: D64.9 - Anemia, unspecified (2) Altered mental status: Qualified Codes: R41.82 - Altered mental status, unspecified (3) Diarrhea: Qualified Codes: R19.7 - Diarrhea, unspecified (4) Hypothermia: Qualified Codes: T68.XXXA - Hypothermia, initial encounter Javid Benson MD Jun 29, 2017 16:33
[2017-06-29] MEDS: ONDANSETRON HCL 4 MG/2 ML VIAL IVP PRN (18:09)
[2017-06-29] MEDS: SODIUM CHLOR 0.9% 1000 ML INJ 1,000 ML IV SCH (18:12)
[2017-06-29] MEDS: PRAVASTATIN SOD 20 MG TAB NG SCH (19:54)
[2017-06-29] MEDS: MORPHINE SULFATE 2 MG/ML INJ IV PUSH PRN (19:55)
[2017-06-29] MEDS: SODIUM CHLORIDE 0.9% FLUSH 10 ML FLUSH IV FLUSH SCH (19:59)
[2017-06-29 20:00] VITALS: BP 125/82; PULSE 104; RESP 16; TEMP 95.3; O2SAT 91
[2017-06-30] VITALS: BP 132/82; PULSE 94; RESP 16; TEMP 95.9; O2SAT 92
[2017-06-30] MEDS: SODIUM CHLOR 0.9% 1000 ML INJ 1,000 ML IV SCH ×3 (01:55→23:59)
[2017-06-30] MEDS: ACETAMINOPHEN/HYDROcodone 325 MG/7.5 MG TAB NG PRN ×3 (04:25→12:54)
[2017-06-30] MEDS: FAMOTIDINE 20 MG/2 ML VIAL IV PUSH SCH ×2 (05:38→16:42)
[2017-06-30] MEDS: LEVOTHYROXINE SODIUM 50 MCG TAB PO SCH (05:39)
[2017-06-30] MEDS: metroNIDAZOLE 500 MG TAB PO SCH ×4 (05:39→23:48)
[2017-06-30] MEDS: sulfaSALAzine 500 MG TAB NG SCH ×3 (05:39→21:15)
[2017-06-30] MEDS: CHOLESTYRAMINE 4 GM PACKET NG SCH ×4 (05:40→23:48)
[2017-06-30] MEDS: MORPHINE SULFATE 2 MG/ML INJ IV PUSH PRN ×3 (06:10→14:49)
[2017-06-30 08:00] VITALS: BP 124/89; PULSE 97; RESP 16; TEMP 93.7; O2SAT 95
[2017-06-30] MEDS: LOW DOSE INSULIN NOVOLOG SUPPLEMENTAL SCALE SQ SCH ×4 (08:38→21:16)
[2017-06-30] MEDS: LACTOBACILLUS ACIDOPHILUS TAB NG SCH ×2 (08:38→21:15)
[2017-06-30] MEDS: ASPIRIN 81 MG CHEW TAB NG SCH (08:39)
[2017-06-30] MEDS: amLODIPine BESYLATE 5 MG TAB NG SCH (08:39)
[2017-06-30] MEDS: predniSONE 20 MG TAB PO SCH ×3 (08:39→16:42)
[2017-06-30] MEDS: FLUCONAZOLE 100 MG TAB PO SCH (08:39)
[2017-06-30] MEDS: HEPARIN SODIUM - SQ 10,000 UNITS/ML VIAL SQ SCH ×2 (08:40→21:15)
[2017-06-30] MEDS: SODIUM CHLORIDE 0.9% FLUSH 10 ML FLUSH IV FLUSH SCH ×2 (09:00→21:00)
[2017-06-30 09:15] LABS: AUTOMATED NEUTROPHIL # 16.3 TH/MM3 (1.8-7.7); BASOPHIL % 0.1 % (0.0-2.0); HEMATOCRIT 33.4 % (35.0-46.0); LYMPH % 3.9 % (9.0-44.0); LYMPHOCYTE # 0.7 TH/MM3 (1.0-4.8); MEAN CELL VOLUME 81.5 FL (80.0-100.0); MEAN CORPUSCULAR HEMOGLOBIN 23.9 PG (27.0-34.0); MONO % 9.8 % (0.0-8.0); NEUT % 86.2 % (16.0-70.0); PLATELET COUNT 527 TH/MM3 (150-450); WHITE BLOOD COUNT 18.9 TH/MM3 (4.0-11.0)
[2017-06-30 09:16] LABS: HEMO FLAGS AUTO DIFF; MEAN CORPUSCULAR HGB CONC 29.4 % (32.0-36.0)
[2017-06-30 09:50] LABS: BANDS 2 % (0-6); CORRECTED NUCLEATED RBC 3 /100 WBC (0-0); MYELOCYTES 1 % (0-0); POLYS (SEG NEUTROPHILS) 87 % (16-70); WBC DIFF SAMPLE 100
[2017-06-30 09:51] LABS: OVALOCYTES 1+ (NORMAL); PLATELET ESTIMATE SMEAR HIGH (NORMAL); PLATELET MORPHOLOGY NORMAL (NORMAL); SCAN/DIFF FINAL DIFF MANUAL
[2017-06-30 10:21] VITALS: TEMP 93
--- NOTE | 2017-06-30 10:49 | HHI.PR ---
Subjective Remarks I was called by the nurse regarding having hypothermia temperature 93 I saw the patient she looked uncomfortable due to the abdominal pain he said his around 7-8 out of 10, diarrhea I ordered stat CBC which showed WBC 18,000 with possibly related also to 2 steroid induce The daughter has also a question which was old answered Objective Vitals Vital Signs Date Time Temp Pulse Resp B/P (MAP) Pulse Ox O2 Delivery O2 Flow Rate FiO2 06/30/17 10:21 93.0 06/30/17 08:00 93.7 97 16 124/89 (101) 95 06/30/17 06:15 18 06/30/17 05:25 17 06/30/17 00:00 95.9 94 16 132/82 (99) 92 06/29/17 20:00 95.3 104 16 125/82 (96) 91 06/29/17 16:00 97.0 93 16 158/74 (102) 93 06/29/17 12:00 96.4 94 17 127/71 (89) 90 I/O 06/29/17 06/29/17 06/29/17 06/30/17 06/30/17 06/30/17 07:00 15:00 23:00 07:00 15:00 23:00 Intake Total 1000 ml 1000 ml 1492 ml Output Total 1000 ml 1000 ml 200 ml 1150 ml Balance 0 ml -1000 ml 800 ml 342 ml Intake Oral 240 ml IV Total 1000 ml 1000 ml 1252 ml Output Urine Total 1000 ml 200 ml 450 ml Stool Total 1000 ml 700 ml Result Diagram: 06/30/17 0859 06/29/17 1105 Objective Remarks GENERAL: This is a well-nourished, well-developed patient, in no apparent distress. SKIN: No rashes, warm and dry HEAD: Atraumatic. Normocephalic. EYES: Pupils equal round and reactive. Extraocular motions intact. No scleral icterus. ENT: NG tube in place NECK: Trachea midline. Supple CARDIOVASCULAR: Regular rate and rhythm without murmurs, gallops, or rubs. RESPIRATORY: Fair air entry bilaterally. No wheezes, rales, or rhonchi. GASTROINTESTINAL: Abdomen soft, non-tender, nondistended. Positive bowel sounds MUSCULOSKELETAL: Extremities without clubbing, cyanosis, or edema. Pedal pulses appreciated NEUROLOGICAL: Awake and alert. Moves all extremity. Normal speech.no focal neurological deficit Procedures none A/P Problem List: (1) Sepsis ICD Code: A41.9 - Sepsis, unspecified organism (2) Metabolic encephalopathy ICD Code: G93.41 - Metabolic encephalopathy (3) Acute kidney injury ICD Code: N17.9 - Acute kidney failure, unspecified Status: Acute (4) Low bicarbonate level ICD Code: E87.8 - Other disorders of electrolyte and fluid balance, not elsewhere classified Status: Acute (5) Hypothermia ICD Code: T68.XXXA - Hypothermia, initial encounter Status: Acute (6) Hypokalemia ICD Code: E87.6 - Hypokalemia Status: Acute Assessment and Plan 06/28: Continue following with GI and renal, continue Flagyl Questran prednisone and Azulfidine, repeat BMP and CBC in a.m., will remove NG tube start diet per speech therapy recommendation and monitor course 06/29: NG tube is out, doing well with by mouth diet, no nausea no vomiting, continue monitoring BMP and CBC, patient requested ensure with meals, creatinine continue to improve 2.14-1.9, will change iv fluid to normal saline and DC half-normal saline with potassium since potassium is 5, patient had a midline leakage will remove in try peripheral any other hand 06/30: Hypothermia temperature 93, stat CBC showed WBC increased to 18,000, abdominal physical revealed benign abdomen, patient on Flagyl, stat lactic acid , LDH, CMP, UA, blood culture start Zosyn, I placed a call for GI to discuss possible need for general surgery opinion. Abdomen: Discussed with Dr. Robbins GI attending, he agreed with further workup regarding the gallbladder ultrasound, we will repeat the stool testing including WBC, ova parasite, enteropathic, C. difficile A/P: 71-year-old female with Sepsis. Resolved, possible recurrence Monica UTI. Continue Diflucan Abdominal tenderness with distended gallbladder. LFTs within normal limits. Leukocytosis improving. No pain/tenderness ct Flagyl. Pain management with IV morphine. Consider GS consult Previous history of C. difficile and collagenous colitis. Repeat C. difficile negative. Continue Azulfidine and Entocort not on formulary switched to prednisone. Consulted GI 2/2 profuse diarrhea leading to SONIA. Also on Flagyl. Follow-up stool studies Metabolic/septic encephalopathy likely secondary to acute kidney injury and infection. CT Head noted and review by me without any acute finding. Improving. Neurochecks. Dysphagia. Improving. Start pured diet and switch tube feeding via NGT to nocturnal times. Aspiration precautions. Speech therapy following Hypoglycemia episode mostly due to npo status, now Improving. Monitor fingersticks and continue D5 prn. Hypoglycemia protocol Acute kidney injury with metabolic acidosis secondary to dehydration/diarrhea and sepsis. Nonoliguric. Likely has ATN . Avoid nephrotoxins. Urology following Hypokalemia secondary to diarrhea. Improved. Replace aggressively as long as patient has adequate urine output. RESOLVED Chronic medical conditions of anemia, hypertension, coronary artery disease, CVA and hypothyroidism. Continue outpatient medications as appropriate DVT prophylaxis: Bilateral SCDs and subcutaneous heparin Problem Qualifiers (1) Hypothermia: Qualified Codes: T68.XXXA - Hypothermia, initial encounter Chance Tello MD Jun 30, 2017 10:49
[2017-06-30] MEDS ORDERED: PIPERACIL-TAZO 4.5 GM PREMIX 100 ML IV ONE (11:00)
[2017-06-30 12:00] VITALS: BP 104/51; PULSE 92; RESP 19; TEMP 92.9; O2SAT 95
[2017-06-30 12:02] LABS: ALKALINE PHOSPHATASE 103 U/L (45-117); ALT (GPT) 10 U/L (10-53); ANION GAP 12 MEQ/L (5-15); AST (GOT) 14 U/L (15-37); BICARBONATE 5.9 MEQ/L (21.0-32.0); BLOOD UREA NITROGEN 28 MG/DL (7-18); CHLORIDE 117 MEQ/L (98-107); GLOMERULAR FILTRATION RATE 26 ML/MIN (>89); LDH SERUM 252 U/L (84-246); POTASSIUM 4.1 MEQ/L (3.5-5.1); SODIUM (NA) 135 MEQ/L (136-145); TOTAL BILIRUBIN ADULT 0.3 MG/DL (0.2-1.0)
--- NOTE | 2017-06-30 13:05 | HHI.NPPN ---
Subjective History of Present Illness 71-year-old female with past medical history of hypertension, ischemic heart disease, history of hepatitis B, history of alcoholism in the past, cerebrovascular accident, hypothyroidism who was transferred here from the nursing facility because of altered mental status and diarrhea. I was called to see the patient because of very high BUN and creatinine. Additional Remarks Patient is alert, not in distress, no SOB, started eating better. Objective Data Data Vital Signs Date Time Temp Pulse Resp B/P (MAP) Pulse Ox O2 Delivery O2 Flow Rate FiO2 06/30/17 12:00 92.9 92 19 104/51 (68) 95 06/30/17 10:21 93.0 06/30/17 08:00 93.7 97 16 124/89 (101) 95 06/30/17 06:15 18 06/30/17 05:25 17 06/30/17 00:00 95.9 94 16 132/82 (99) 92 06/29/17 20:00 95.3 104 16 125/82 (96) 91 06/29/17 16:00 97.0 93 16 158/74 (102) 93 -: 06/30/17 0859 06/30/17 1125 Microbiology 06/30/17 Aerobic Blood Culture, Received Pending 06/30/17 Anaerobic Blood Culture, Received Pending 06/30/17 Aerobic Blood Culture, Received Pending 06/30/17 Anaerobic Blood Culture, Received Pending 06/30/17 Cryptosporidium Exam, Received Pending 06/30/17 Stool Pus (NGUYEN), Received Pending 06/30/17 Giardia Antigen (NGUYEN), Received Pending 06/30/17 Fungal Smear, Received Pending 06/30/17 Fungal Culture, Received Pending 06/30/17 , Received Pending Physical Exam General Appearance: No Acute Distress, Comfortable, Anxious Eyes Eye Exam: Pupils Equal Neck Neck Exam: Neck Supple Pulmonary Resp Exam: Breath Sounds Equal, No Distress, Rhonchi, Decreased Bases Cardiology CV Exam: Regular, Normal Sinus Rhythm Gastrointestinal/Abdomen GI Exam: Soft, Non-Tender, Bowel Sounds Present Extremeties Extremities Exam: No Edema Neurologic Neuro Exam: Alert, Awake Psychiatric Psych Exam: Appropriate Responses Assessment/Plan Assessment Summary: SONIA/Acute Renal Failure Problem List: (1) Anemia ICD Codes: D64.9 - Anemia, unspecified (2) Altered mental status ICD Codes: R41.82 - Altered mental status, unspecified Status: Acute (3) Metabolic encephalopathy ICD Codes: G93.41 - Metabolic encephalopathy (4) Low bicarbonate level ICD Codes: E87.8 - Other disorders of electrolyte and fluid balance, not elsewhere classified Status: Acute (5) Diarrhea ICD Codes: R19.7 - Diarrhea, unspecified Status: Acute (6) Hypothermia ICD Codes: T68.XXXA - Hypothermia, initial encounter Status: Acute (7) Acute kidney injury ICD Codes: N17.9 - Acute kidney failure, unspecified Status: Acute Plan Patient has Acute kidney injury. Urine Na. is low and Eosinophils is negative. BP is better, Continue IVF with NaHco3. Urine out put is low. Most likely has ATN. Creatinine continue to improve, now 1.8, K is now normal. IVF now stopped. Encourage oral intake. GI is following for diarrhea. Follow the urine out put and BMP. Problem Qualifiers (1) Anemia: Qualified Codes: D64.9 - Anemia, unspecified (2) Altered mental status: Qualified Codes: R41.82 - Altered mental status, unspecified (3) Diarrhea: Qualified Codes: R19.7 - Diarrhea, unspecified (4) Hypothermia: Qualified Codes: T68.XXXA - Hypothermia, initial encounter Javid Benson MD Jun 30, 2017 13:05
[2017-06-30 13:15] LABS: C. DIFF EPI 027 PRESUMPTIVE NEGATIVE (NEGATIVE)
[2017-06-30] MEDS: ONDANSETRON HCL 4 MG/2 ML VIAL IVP PRN (15:55)
[2017-06-30 16:00] VITALS: BP 110/71; PULSE 88; RESP 16; TEMP 92.7; O2SAT 94
--- NOTE | 2017-06-30 16:09 | RADRPT ---
EXAM DATE/TIME: 06/30/2017 15:10 [facility] COMPARISON: CT ABDOMEN & PELVIS W/O CONTRAST, June 22, 2017, 14:44. INDICATIONS : Abdominal pain. MEDICAL HISTORY : Renal insufficiency. Hypertension. SURGICAL HISTORY : Hysterectomy. Appendectomy. ENCOUNTER: Initial ACUITY: 1 day PAIN SCORE: 0/10 LOCATION: Abdomen TECHNIQUE: Multiplanar, multisequence magnetic resonance imaging of the abdomen was performed. High-resolution 3D dataset was utilized to reconstruct maximum-intensity projection (MIP) images. FINDINGS: PROMINENT MOTION ARTIFACT DEGRADES IMAGES. INTRAHEPATIC BILE DUCTS: No gross dilatation. EXTRAHEPATIC BILE DUCTS: No evidence of dilatation. The common duct measures 5 mm diameter distally and 6 mm proximally. GALLBLADDER: Mildly distended. No abnormal filling defects or pericholecystic fluid. LIVER: Normal size and signal intensity. No concerning liver lesion is identified on this non-contrast exam. PANCREAS: Grossly within normal limits. OTHER: Atrophic left kidney. Bilateral pleural effusions left greater than right. CONCLUSION: 1. Images are quite degraded do to motion artifact. Much of the biliary system is obscured by artifac t. 2. No gross biliary ductal dilatation. 3. Bilateral pleural effusions left greater than right. 4. Gallbladder is mildly distended but otherwise within normal limits. 5. T11 lower thoracic vertebral body compression fracture noted. 6. Atrophic left kidney. Tre Aguilar MD on June 30, 2017 at 16:03 Board Certified Radiologist. This report was verified electronically.
[2017-06-30] MEDS: PIPERACIL-TAZO 3.375 GM PREMIX 50 ML IV SCH ×2 (17:00→23:48)
[2017-06-30 18:09] LABS: BACTERIA, URINE MANY /hpf; BLOOD, URINE SMALL (NEG); COMMENT (UR) CULTURE INDICATED; CULTURE IF INDICATED CULTURE INDICATED; GLUCOSE,URINE NEG (NEG); KETONE, URINE NEG (NEG); MUCUS URINE FEW /lpf (OCC); NITRITE,URINE NEG (NEG); SQUAMOUS EPITHELIAL CELL URINE <1 /hpf (0-5); URINE COLOR YELLOW (YELLW/STRAW)
[2017-06-30 20:00] VITALS: BP 108/61; PULSE 79; RESP 16; TEMP 93.6; O2SAT 91
[2017-06-30] MEDS: PRAVASTATIN SOD 20 MG TAB NG SCH (21:15)
[2017-06-30] MEDS: ACETAMINOPHEN/HYDROcodone 325 MG/5 MG TAB NG PRN (21:17)
[2017-07-01] VITALS (7 sets, daily range): BP systolic 50–104; BP diastolic 19–59; PULSE 67–83; RESP 17–55; TEMP 92–94; O2SAT 90–96
[2017-07-01] MEDS: PIPERACIL-TAZO 3.375 GM PREMIX 50 ML IV SCH ×3 (05:59→16:48)
[2017-07-01] MEDS: metroNIDAZOLE 500 MG TAB PO SCH ×2 (05:59→11:42)
[2017-07-01] MEDS: sulfaSALAzine 500 MG TAB NG SCH (05:59)
[2017-07-01] MEDS: FAMOTIDINE 20 MG/2 ML VIAL IV PUSH SCH ×2 (06:00→16:46)
[2017-07-01] MEDS: CHOLESTYRAMINE 4 GM PACKET NG SCH ×2 (06:00→11:42)
[2017-07-01] MEDS: LEVOTHYROXINE SODIUM 50 MCG TAB PO SCH (06:00)
[2017-07-01] MEDS: predniSONE 20 MG TAB PO SCH ×2 (08:03→11:42)
[2017-07-01] MEDS: amLODIPine BESYLATE 5 MG TAB NG SCH (08:03)
[2017-07-01] MEDS: LACTOBACILLUS ACIDOPHILUS TAB NG SCH (08:03)
[2017-07-01] MEDS: ASPIRIN 81 MG CHEW TAB NG SCH (08:03)
[2017-07-01] MEDS: FLUCONAZOLE 100 MG TAB PO SCH (08:03)
[2017-07-01] MEDS: CLOPIDOGREL 75 MG TAB NG SCH (08:04)
[2017-07-01] MEDS: SODIUM CHLORIDE 0.9% FLUSH 10 ML FLUSH IV FLUSH SCH (08:04)
[2017-07-01] MEDS: HEPARIN SODIUM - SQ 10,000 UNITS/ML VIAL SQ SCH (08:08)
[2017-07-01] MEDS: LOW DOSE INSULIN NOVOLOG SUPPLEMENTAL SCALE SQ SCH ×3 (08:12→16:48)
--- NOTE | 2017-07-01 11:45 | HHI.NPPN ---
Subjective History of Present Illness 71-year-old female with past medical history of hypertension, ischemic heart disease, history of hepatitis B, history of alcoholism in the past, cerebrovascular accident, hypothyroidism who was transferred here from the nursing facility because of altered mental status and diarrhea. I was called to see the patient because of very high BUN and creatinine. Additional Remarks Patient is alert, not in distress, mild SOB, with nasal cannula. Objective Data Data Vital Signs Date Time Temp Pulse Resp B/P (MAP) Pulse Ox O2 Delivery O2 Flow Rate FiO2 07/01/17 08:00 92.0 20 104/47 (66) 90 07/01/17 00:00 92.7 78 17 104/59 (74) 93 06/30/17 20:00 93.6 79 16 108/61 (77) 91 06/30/17 16:00 92.7 88 16 110/71 (84) 94 06/30/17 12:00 92.9 92 19 104/51 (68) 95 -: 06/30/17 0859 06/30/17 1125 Microbiology 06/30/17 Aerobic Blood Culture - Preliminary, Resulted NO GROWTH IN 1 DAY 06/30/17 Anaerobic Blood Culture - Preliminary, Resulted NO GROWTH IN 1 DAY 06/30/17 Urine Culture, Received Pending Physical Exam General Appearance: No Acute Distress, Comfortable, Anxious Eyes Eye Exam: Pupils Equal Neck Neck Exam: Neck Supple Pulmonary Resp Exam: Breath Sounds Equal, No Distress, Rhonchi, Decreased Bases Cardiology CV Exam: Regular, Normal Sinus Rhythm Gastrointestinal/Abdomen GI Exam: Soft, Non-Tender, Bowel Sounds Present Extremeties Extremities Exam: No Edema Neurologic Neuro Exam: Alert, Awake Psychiatric Psych Exam: Appropriate Responses Assessment/Plan Assessment Summary: SONIA/Acute Renal Failure Problem List: (1) Anemia ICD Codes: D64.9 - Anemia, unspecified (2) Altered mental status ICD Codes: R41.82 - Altered mental status, unspecified Status: Acute (3) Metabolic encephalopathy ICD Codes: G93.41 - Metabolic encephalopathy (4) Low bicarbonate level ICD Codes: E87.8 - Other disorders of electrolyte and fluid balance, not elsewhere classified Status: Acute (5) Diarrhea ICD Codes: R19.7 - Diarrhea, unspecified Status: Acute (6) Hypothermia ICD Codes: T68.XXXA - Hypothermia, initial encounter Status: Acute (7) Acute kidney injury ICD Codes: N17.9 - Acute kidney failure, unspecified Status: Acute Plan Patient has Acute kidney injury. Urine Na. is low and Eosinophils is negative. BP is better, Continue IVF with NaHco3. Urine out put is low. Most likely has ATN. IVF now stopped. Encourage oral intake. GI is following for diarrhea. Follow the urine out put and BMP. No new BMP today. Problem Qualifiers (1) Anemia: Qualified Codes: D64.9 - Anemia, unspecified (2) Altered mental status: Qualified Codes: R41.82 - Altered mental status, unspecified (3) Diarrhea: Qualified Codes: R19.7 - Diarrhea, unspecified (4) Hypothermia: Qualified Codes: T68.XXXA - Hypothermia, initial encounter Javid Benson MD Jul 01, 2017 11:45
--- NOTE | 2017-07-01 11:46 | HHI.PR ---
Subjective Remarks She is laying in bed with open eyes, she looks lethargic, daughter at the bedside She is not answering question about pain however with examining her abdomen it is tender MRCP yesterday was not significant for intra-abdominal biliary obstruction, however it showed bilateral pleural effusion however patient does not have any respiratory symptoms she is not on oxygen . Patient is having still hypothermia with leukocytosis, lactic acid was increased to 2.5, bicarbonate is trending down, continued to have diarrhea Objective Vitals Vital Signs Date Time Temp Pulse Resp B/P (MAP) Pulse Ox O2 Delivery O2 Flow Rate FiO2 07/01/17 08:00 92.0 20 104/47 (66) 90 07/01/17 00:00 92.7 78 17 104/59 (74) 93 06/30/17 20:00 93.6 79 16 108/61 (77) 91 06/30/17 16:00 92.7 88 16 110/71 (84) 94 06/30/17 12:00 92.9 92 19 104/51 (68) 95 I/O 06/30/17 06/30/17 06/30/17 07/01/17 07/01/17 07/01/17 07:00 15:00 23:00 07:00 15:00 23:00 Intake Total 1492 ml 675 ml 1290 ml Output Total 1150 ml 275 ml 350 ml Balance 342 ml 400 ml 940 ml Intake Oral 240 ml 575 ml 240 ml IV Total 1252 ml 100 ml 1050 ml Output Urine Total 450 ml 275 ml 350 ml Stool Total 700 ml Result Diagram: 06/30/17 0859 06/30/17 1125 Objective Remarks GENERAL: This is a frail elderly lady who seems to be lethargic today SKIN: No rashes, warm and dry HEAD: Atraumatic. Normocephalic. EYES: Pupils equal round and reactive. Extraocular motions intact. No scleral icterus. ENT: NG tube in place NECK: Trachea midline. Supple CARDIOVASCULAR: Regular rate and rhythm without murmurs, gallops, or rubs. RESPIRATORY: Fair air entry bilaterally. No wheezes, rales, or rhonchi. GASTROINTESTINAL: Abdomen soft, non-tender, nondistended. Positive bowel sounds MUSCULOSKELETAL: Extremities without clubbing, cyanosis, or edema. Pedal pulses appreciated NEUROLOGICAL: Patient looks lethargic today Moves all extremity. Procedures none A/P Problem List: (1) Sepsis ICD Code: A41.9 - Sepsis, unspecified organism (2) Metabolic encephalopathy ICD Code: G93.41 - Metabolic encephalopathy (3) Acute kidney injury ICD Code: N17.9 - Acute kidney failure, unspecified Status: Acute (4) Low bicarbonate level ICD Code: E87.8 - Other disorders of electrolyte and fluid balance, not elsewhere classified Status: Acute (5) Hypothermia ICD Code: T68.XXXA - Hypothermia, initial encounter Status: Acute (6) Hypokalemia ICD Code: E87.6 - Hypokalemia Status: Acute Assessment and Plan 06/28: Continue following with GI and renal, continue Flagyl Questran prednisone and Azulfidine, repeat BMP and CBC in a.m., will remove NG tube start diet per speech therapy recommendation and monitor course 06/29: NG tube is out, doing well with by mouth diet, no nausea no vomiting, continue monitoring BMP and CBC, patient requested ensure with meals, creatinine continue to improve 2.14-1.9, will change iv fluid to normal saline and DC half-normal saline with potassium since potassium is 5, patient had a midline leakage will remove in try peripheral any other hand 06/30: Hypothermia temperature 93, stat CBC showed WBC increased to 18,000, abdominal physical revealed benign abdomen, patient on Flagyl, stat lactic acid , LDH, CMP, UA, blood culture start Zosyn, I placed a call for GI to discuss possible need for general surgery opinion. Abdomen: Discussed with Dr. Robbins GI attending, he agreed with further workup regarding the gallbladder ultrasound, we will repeat the stool testing including WBC, ova parasite, enteropathic, C. difficile 07/01: Patient continued to have severe hyperthermia with leukocytosis, lactic acidosis, metabolic acidosis with bicarbonate continues to trending down I ordered a stat repeat of CBC BMP, mag phosphorus, lactic acid, ABG, change iv fluid to normal saline with sodium bicarbonate stat, I added cefepime and Vanco to her antibiotic regimen, blood culture no growth for 1 day, repeat stool culture pending, abdomen kettle tender, MRCP from yesterday not conclusive for biliary obstruction or pathology, positive bilateral pleural effusion however patient does not show any clinical respiratory symptoms or desaturation. Most likely diarrhea is causing her acidosis, I also ordered TSH level with free T4, I called Dr. Roldan the intensive care physician on-call and discussed the case with her and she graciously accepted resume care in the ICU for the patient Critical care time 55 minutes A/P: 71-year-old female with Sepsis. Resolved, possible recurrence Monica UTI. Continue Diflucan Abdominal tenderness with distended gallbladder. LFTs within normal limits. Leukocytosis improving. No pain/tenderness ct Flagyl. Pain management with IV morphine. Consider GS consult Previous history of C. difficile and collagenous colitis. Repeat C. difficile negative. Continue Azulfidine and Entocort not on formulary switched to prednisone. Consulted GI 2/2 profuse diarrhea leading to SONIA. Also on Flagyl. Follow-up stool studies Metabolic/septic encephalopathy likely secondary to acute kidney injury and infection. CT Head noted and review by me without any acute finding. Improving. Neurochecks. Dysphagia. Improving. Start pured diet and switch tube feeding via NGT to nocturnal times. Aspiration precautions. Speech therapy following Hypoglycemia episode mostly due to npo status, now Improving. Monitor fingersticks and continue D5 prn. Hypoglycemia protocol Acute kidney injury with metabolic acidosis secondary to dehydration/diarrhea and sepsis. Nonoliguric. Likely has ATN . Avoid nephrotoxins. Urology following Hypokalemia secondary to diarrhea. Improved. Replace aggressively as long as patient has adequate urine output. RESOLVED Chronic medical conditions of anemia, hypertension, coronary artery disease, CVA and hypothyroidism. Continue outpatient medications as appropriate DVT prophylaxis: Bilateral SCDs and subcutaneous heparin Problem Qualifiers (1) Hypothermia: Qualified Codes: T68.XXXA - Hypothermia, initial encounter Chance Tello MD Jul 01, 2017 11:46
[2017-07-01] MEDS ORDERED: VANCOMYCIN INJ 1,000 MG in SODIUM CHLOR 0.9% 250 ML INJ 250 ML IV SCH (12:00)
--- NOTE | 2017-07-01 12:34 | HHI.GIFU ---
Subjective Remarks Pt resting in bed. Tender in RUQ quadrant, c/o continued diarrhea. Liquid brown stool in rectal bag, large amt. (Connie Nicholson) Objective Vitals I&O Vital Signs Date Time Temp Pulse Resp B/P (MAP) Pulse Ox O2 Delivery O2 Flow Rate FiO2 07/01/17 12:00 92.3 21 90/43 (59) 07/01/17 08:00 92.0 20 104/47 (66) 90 07/01/17 00:00 92.7 78 17 104/59 (74) 93 06/30/17 20:00 93.6 79 16 108/61 (77) 91 06/30/17 16:00 92.7 88 16 110/71 (84) 94 I/O 06/30/17 06/30/17 06/30/17 07/01/17 07/01/17 07/01/17 07:00 15:00 23:00 07:00 15:00 23:00 Intake Total 1492 ml 675 ml 1290 ml Output Total 1150 ml 275 ml 350 ml Balance 342 ml 400 ml 940 ml Intake Oral 240 ml 575 ml 240 ml IV Total 1252 ml 100 ml 1050 ml Output Urine Total 450 ml 275 ml 350 ml Stool Total 700 ml Laboratory Laboratory Tests Test 06/30/17 12:35 06/30/17 17:45 07/01/17 11:51 Lactic Acid Level 2.7 3.4 Urine Color YELLOW Urine Turbidity HAZY Urine pH 5.0 Urine Specific [place] 1.013 Urine Protein 30 Urine Glucose (UA) NEG Urine Ketones NEG Urine Occult Blood SMALL Urine Nitrite NEG Urine Bilirubin NEG Urine Urobilinogen LESS THAN 2.0 Urine Leukocyte Esterase LARGE Urine RBC 67 Urine WBC 75 Urine Squamous Epithelial Cells <1 Urine Bacteria MANY Urine Mucus FEW Urine Yeast (Budding) MANY Microscopic Urinalysis Comment CULTURE INDICATED Date/Time Source Procedure Growth Status 06/30/17 12:35 Blood Peripheral Aerobic Blood Culture - Preliminary NO GROWTH IN 1 DAY Resulted 06/30/17 12:35 Blood Peripheral Anaerobic Blood Culture - Preliminary NO GROWTH IN 1 DAY Resulted 06/30/17 11:20 Stool Stool Cryptosporidium Exam - Final NEGATIVE - NO CRYPTOSPORIDIUM ANTIGEN... Complete 06/30/17 11:20 Stool Stool Stool Pus (NGUYEN) - Final NO WBC'S SEEN Complete 06/30/17 11:20 Stool Stool Giardia Antigen (NGUYEN) - Final NEGATIVE - NO GIARDIA ANTIGEN DETECTE... Complete 06/30/17 17:45 Urine Clean Catch Urine Culture Pending Received Imaging Last Impressions Cholangiopancreatography MRI 06/30/17 0000 Signed Impressions: Service Date/Time: Friday, June 30, 2017 15:10 - CONCLUSION: 1. Images are quite degraded do to motion artifact. Much of the biliary system is obscured by artifact. 2. No gross biliary ductal dilatation. 3. Bilateral pleural effusions left greater than right. 4. Gallbladder is mildly distended but otherwise within normal limits. 5. T11 lower thoracic vertebral body compression fracture noted. 6. Atrophic left kidney. Tre Aguilar MD Gall Bladder Ultrasound 06/23/17 0000 Signed Impressions: Service Date/Time: Friday, June 23, 2017 14:13 - CONCLUSION: Gallbladder is quite distended. A small right pleural effusion. Pacheco Che MD Head CT 06/22/17 1152 Signed Impressions: Service Date/Time: Thursday, June 22, 2017 13:03 - CONCLUSION: 1. Senescent changes without acute intracranial abnormality. Clinton Walter MD Chest X-Ray 06/22/17 1152 Signed Impressions: Service Date/Time: Thursday, June 22, 2017 12:39 - CONCLUSION: 1. Platelike bilateral lower lung zone airspace disease consistent with atelectasis. Clinton Walter MD Abdomen/Pelvis CT 06/22/17 0000 Signed Impressions: Service Date/Time: Thursday, June 22, 2017 14:44 - CONCLUSION: 1. Diffusely fluid-filled slightly prominent colon without significant colonic wall thickening. Although nonspecific, findings likely reflect enteritis. Although less likely, very early infectious colitis cannot be excluded. 2. Significantly distended gallbladder without significant biliary ductal dilatation. This may be due to prolonged fasting. Clinical correlation is recommended. Consider ultrasound examination if there is significant continued clinical concern. 3. Mild patchy airspace disease at the left lung base, presumably atelectasis. 4. Very minimal trace bilateral pleural effusions. Clinton Walter MD Physical Exam HEENT: Pupils round and reactive to light; normocephalic; atraumatic CHEST: tachypneic CARDIAC: Regular rate and rhythm ABDOMEN: Soft, mildly distended,RUQ TTP, bowel sounds are present in all four quadrants. liquid brown stool rectal bag EXTREMITIES: No clubbing, cyanosis, or edema. SKIN: Normal; no rash; no jaundice. [employer]: lethargic (Connie Nicholson) Assessment and Plan Plan - diarrhea - likely Collagenous Colitis, recurrent. Recent hospitalization at [facility] with Colonoscopy. Patient was discharged with steroid taper and Sulfasalazine. Stool studies previous admission neg. c diff neg, repeating stool studies, negative so far. Abdominal CT shows some possible gallbladder disease, possible enteritis. MRCP done, degraded by motion, no gross biliary ductal dilatation. getting transferred to [facility] [place] RUQ TTP - anemia - hypochromic, microcytic HH stable, no bleeding reported - leukocytosis - WBC increasing. ID consulted, concern for sepsis - S/P DNR status PLAN - CATE - Monitor fecal out put -Continue Questran - Azulfidine - PO prednisone - consider CE as an OP - supportive care This pt seen by myself and DR Robbins and this note is written on his behalf (Connie Nicholson) Physician Comments Significant diarrhea despite aggressive treatment. Repeat work up pending. Plan as above. (Kayli Robbins MD) Connie Nicholson Jul 01, 2017 12:33 Kayli Robbins MD Jul 01, 2017 12:44
[2017-07-01] MEDS ORDERED: SODIUM BICARBONATE 8.4% INJ 100 MEQ in SODIUM CHLOR 0.9% 1000 ML INJ 1,000 ML IV SCH (13:00)
[2017-07-01] MEDS ORDERED: CEFEPIME INJ 2,000 MG in SODIUM CHLORIDE 0.9% INJ 100 ML IV SCH (14:00)
[2017-07-01] MEDS ORDERED: SODIUM BICARBONATE 8.4% INJ 50 MEQ/50 ML SYR ONE ×2 (14:03→14:04)
--- NOTE | 2017-07-01 14:05 | PD.CONS ---
HPI Service Critical Care Medicine Consult Requested By Dr. Tello Reason for Consult Hypocarbia, sepsis, hypotension Primary Care Physician No Primary Care Physician History of Present Illness This is a 72-year-old female that was recently admitted on June 22, 2017 from a snf with a diagnosis of altered mental status secondary to presumed sepsis from multiple urinary tract infections. Imaging studies revealed significantly dilated gallbladder without ductal dilatation, urine culture suggestive of UTI. The patient has a history of multiple UTIs. C. difficile was negative, urine cultures pending. The patient was placed on Zosyn initially and today placed on cefepime and Diflucan. The patient has had a sodium bicarbonate infusion and continues to have hypocarbia. The patient is alert to name and place. During this hospitalization the patient was seen by palliative care medicine and has made herself DNI/DNR. Infectious disease has been consulted today. Critical care medicine has been consulted regarding the hypocarbia and sepsis. Review of Systems ROS Limitations: Clinical Condition Past Family Social History Allergies: Coded Allergies: diatrizoate meglumine (Unverified Adverse Reaction, Unknown, KIDNEY FUNCTION CHANGES, 05/17/17) gadobenic acid (Unverified Adverse Reaction, Unknown, KIDNEY FUNCTION CHANGES, 05/17/17) gadodiamide (Unverified Adverse Reaction, Unknown, KIDNEY FUNCTION CHANGES , 05/17/17) gadoteridol (Unverified Adverse Reaction, Unknown, KIDNEY FUNCTION CHANGES , 05/17/17) iodixanol (Unverified Adverse Reaction, Unknown, KIDNEY FUNCTION CHANGES, 05/17/17) iohexol (Unverified Adverse Reaction, Unknown, KIDNEY FUNCTION CHANGES, ) Family History Unable to assess secondary to patient's medical condition see previous entries Social History History of smoking per medical record, remote history of alcohol use disorder Physical Exam Vital Signs Vital Signs Date Time Temp Pulse Resp B/P (MAP) Pulse Ox O2 Delivery O2 Flow Rate FiO2 07/01/17 12:30 93.0 07/01/17 12:00 92.3 21 90/43 (59) 07/01/17 08:00 92.0 20 104/47 (66) 90 07/01/17 00:00 92.7 78 17 104/59 (74) 93 06/30/17 20:00 93.6 79 16 108/61 (77) 91 06/30/17 16:00 92.7 88 16 110/71 (01) 94 Physical Exam GENERAL: Malnourished elderly female in moderate distress, severely weakened SKIN: Warm and dry. Ecchymotic bruising noted bilaterally upper extremities HEAD: Atraumatic. Normocephalic. EYES: Pupils equal, round and reactive. No scleral icterus. No injection or drainage. ENT: No nasal bleeding or discharge. Mucous membranes pink and moist. NECK: Trachea midline. No JVD. CARDIOVASCULAR: Normal rate, regular rhythm. S1, S2 RESPIRATORY: No accessory muscle use. Clear to auscultation. Breath sounds equal bilaterally. Nasal cannula GASTROINTESTINAL: Abdomen soft, non-tender, nondistended. No guarding. Normoactive bowel sounds MUSCULOSKELETAL: Extremities without clubbing, cyanosis, or edema. No obvious deformities. NEUROLOGICAL: Awake and alert. RASS 0. No gross focal/sensory deficits. Follows commands in all 4 extremities. Laboratory Laboratory Tests Test 06/30/17 17:45 07/01/17 11:51 07/01/17 13:45 Urine Color YELLOW Urine Turbidity HAZY Urine pH 5.0 Urine Specific [place] 1.013 Urine Protein 30 Urine Glucose (UA) NEG Urine Ketones NEG Urine Occult Blood SMALL Urine Nitrite NEG Urine Bilirubin NEG Urine Urobilinogen LESS THAN 2.0 Urine Leukocyte Esterase LARGE Urine RBC 67 Urine WBC 75 Urine Squamous Epithelial Cells <1 Urine Bacteria MANY Urine Mucus FEW Urine Yeast (Budding) MANY Microscopic Urinalysis Comment CULTURE INDICATED Lactic Acid Level 3.4 Date/Time Source Procedure Growth Status 06/30/17 12:35 Blood Peripheral Aerobic Blood Culture - Preliminary NO GROWTH IN 1 DAY Resulted 06/30/17 12:35 Blood Peripheral Anaerobic Blood Culture - Preliminary NO GROWTH IN 1 DAY Resulted 06/30/17 11:20 Stool Stool Cryptosporidium Exam - Final NEGATIVE - NO CRYPTOSPORIDIUM ANTIGEN... Complete 06/30/17 11:20 Stool Stool Stool Pus (NGUYEN) - Final NO WBC'S SEEN Complete 06/30/17 11:20 Stool Stool Giardia Antigen (NGUYEN) - Final NEGATIVE - NO GIARDIA ANTIGEN DETECTE... Complete 06/30/17 17:45 Urine Clean Catch Urine Culture - Preliminary IMMATURE GROWTH - REINCUBATE Resulted Result Diagram: 06/30/17 0859 06/30/17 1125 Imaging Last Impressions Cholangiopancreatography MRI 06/30/17 0000 Signed Impressions: Service Date/Time: Friday, June 30, 2017 15:10 - CONCLUSION: 1. Images are quite degraded do to motion artifact. Much of the biliary system is obscured by artifact. 2. No gross biliary ductal dilatation. 3. Bilateral pleural effusions left greater than right. 4. Gallbladder is mildly distended but otherwise within normal limits. 5. T11 lower thoracic vertebral body compression fracture noted. 6. Atrophic left kidney. Tre Aguilar MD Gall Bladder Ultrasound 06/23/17 0000 Signed Impressions: Service Date/Time: Friday, June 23, 2017 14:13 - CONCLUSION: Gallbladder is quite distended. A small right pleural effusion. Pacheco Che MD Head CT 06/22/17 1152 Signed Impressions: Service Date/Time: Thursday, June 22, 2017 13:03 - CONCLUSION: 1. Senescent changes without acute intracranial abnormality. Clinton Walter MD Chest X-Ray 06/22/17 1152 Signed Impressions: Service Date/Time: Thursday, June 22, 2017 12:39 - CONCLUSION: 1. Platelike bilateral lower lung zone airspace disease consistent with atelectasis. Clinton Walter MD Abdomen/Pelvis CT 06/22/17 0000 Signed Impressions: Service Date/Time: Thursday, June 22, 2017 14:44 - CONCLUSION: 1. Diffusely fluid-filled slightly prominent colon without significant colonic wall thickening. Although nonspecific, findings likely reflect enteritis. Although less likely, very early infectious colitis cannot be excluded. 2. Significantly distended gallbladder without significant biliary ductal dilatation. This may be due to prolonged fasting. Clinical correlation is recommended. Consider ultrasound examination if there is significant continued clinical concern. 3. Mild patchy airspace disease at the left lung base, presumably atelectasis. 4. Very minimal trace bilateral pleural effusions. Clinton Walter MD Septic Shock Reassessment Septic shock perfusion: reassessment completed Assessment and Plan Assessment and Plan This is a 72-year-old female with a history of multiple UTIs, now with sepsis, hypothermia hypocarbia increasing leukocytosis. She is noted to have a distended gallbladder, lactic acidemia. Infectious disease has been consulted this a.m. Patient is a DNI/DNR. Admit to ICU. Plan by systems: Neurologic: Metabolic encephalopathy History of CVA Abdominal pain T11 compression fracture Hypothermia Avoid long-acting sedative medications Neurochecks per ICU protocol [place]over 5/325 , and 10/325 for pain Morphine 1-2 mg IV for breakthrough pain Respiratory: Acute respiratory insufficiency Bilateral pleural effusions Maintain O2 sat greater than 92% O2 via nasal cannula 1-4 LPM, currently on 2 L nasal cannula measuring 95-97 percent Bronchodilators every 4 hours when necessary for wheezing Obtain ABG Cardiovascular: Hypotension Ischemic heart disease Septic shock Maintain MAP greater than 65mmHG Norepinephrine and Ramiro-Synephrine infusions to maintain MAP Obtain echo Troponin pending Renal: Acute kidney injury-likely secondary to ATN Nephrology following-Dr. Benson Maintain Sandoval catheter -- Strict I/Os FEN/GI: Electrolyte derangement Severe metabolic acidosis Diarrhea Pt currently on sodium bicarbonate at 42 cc/an hour, and increase sodium bicarbonate concentration 150 mEq/850 cc to 100 cc/an hour 2 amps sodium bicarbonate IV push now Hold bowel regimen Replete electrolytes per ICU protocol Obtain CMP 06/22 CT abdomen and pelvis-significantly distended gallbladder without significant biliary duct dilatation. Consider possible percutaneous drainage Obtain gallbladder ultrasound Consult general surgery Consult invasive radiology for possible percutaneous cholecystostomy drainage tube Heme/ID: Sepsis Bandemia Leukocytosis Lactic acidemia Blood culture-pending Urine culture-Monica albicans C. difficile PCR negative 07/01 ID consulted-appreciate recommendations 07/01- Diflucan started, patient currently on cefepime 2 g q 8hrs Zosyn 3.375 every 6hrs and vancomycin 1g q 12hr Endocrine: Hypothyroidism Hyperglycemia of critical illness Patient on levothyroxine 50 mcgs/d 06/28 TSH elevated 5.94 Obtain free T3 and T4 Glucose monitoring per ICU protocol low dose regimen -- SSI Prophylaxis: GI Prophylaxis Famotidine IV BID DVT Prophylaxis -- SCDs Heparin SQ Lines: PIV x2. Central line if indicated Dispo: my billing statement This patient remains critically ill with one or more organ systems which are or may become a threat to life. I have spent in excess of 47 minutes discontinuously in the care and management of this patient. This time is exclusive of procedures, and includes, but is not limited to, evaluation of the patient, review of the medical record, discussions with family, consultants, nursing staff, or respiratory therapy, and documentation in the medical record. Code Status DNR/ DNI Discussed Condition With Dr. Tello, Dr. Vaughan and SECURITY THREAT ANALYST at bedside Geetha Roldan MD Jul 01, 2017 14:05
[2017-07-01 14:10] LABS: AUTOMATED NEUTROPHIL # 28.6 TH/MM3 (1.8-7.7); BASOPHIL # 0.2 TH/MM3 (0-0.2); BASOPHIL % 0.5 % (0.0-2.0); HEMATOCRIT 36.8 % (35.0-46.0); HEMO FLAGS AUTO DIFF; LYMPH % 3.2 % (9.0-44.0); MEAN CELL VOLUME 80.3 FL (80.0-100.0); MEAN CORPUSCULAR HEMOGLOBIN 24.4 PG (27.0-34.0); MEAN CORPUSCULAR HGB CONC 30.3 % (32.0-36.0); MONO % 3.4 % (0.0-8.0); NEUT % 92.9 % (16.0-70.0); PLATELET COUNT 365 TH/MM3 (150-450); RED BLOOD COUNT 4.58 MIL/MM3 (4.00-5.30); RED CELL DISTRIBUTION WIDTH 25.6 % (11.6-17.2); WHITE BLOOD COUNT 30.8 TH/MM3 (4.0-11.0)
[2017-07-01] MEDS ORDERED: SODIUM BICARBONATE 8.4% INJ 50 MEQ/50 ML SYR IV PUSH ONE (14:15)
[2017-07-01 14:22] LABS: BICARBONATE 6.3 MEQ/L (21.0-32.0); POTASSIUM 4.2 MEQ/L (3.5-5.1)
[2017-07-01 14:38] LABS: BLOOD GAS BASE EXCESS -17.5 mmol/L (-2-2); BLOOD GAS CARBOXYHEMOGLOBIN 0.8 % (0-4); BLOOD GAS HCO3 8 mmol/L (22-26); BLOOD GAS METHEMOGLOBIN 1.5 % (0-2); BLOOD GAS O2 HGB SATURATION 89 % (90-100); BLOOD GAS OXYGEN CONTENT 11.4 Vol % (12.0-20.0); BLOOD GAS PCO2 18 mmHg (38-42); BLOOD GAS PO2 60 mmHg (61-120); BLOOD GAS TOTAL HGB 9.1 G/DL (12.0-16.0); TEMP CORR TO 98.6
[2017-07-01 14:39] LABS: BANDS 30 % (0-6); CORRECTED NUCLEATED RBC 2 /100 WBC (0-0); METAMYELOCYTES 3 % (0-1); MYELOCYTES 3 % (0-0); NEUTROPHIL # MANUAL DIFF 29.6 TH/MM3 (1.8-7.7); OVALOCYTES 2+ (NORMAL); PLATELET ESTIMATE SMEAR NORMAL (NORMAL); PLATELET MORPHOLOGY NORMAL (NORMAL); POLYS (SEG NEUTROPHILS) 60 % (16-70); SCAN/DIFF FINAL DIFF MANUAL; WBC DIFF SAMPLE 100
[2017-07-01 14:39] LABS: CRITICAL VALUE YES; DRAW SITE LT RADIAL; LITER FLOW 2 L/M; NUMBER OF ARTERIAL PUNCTURES 1; OXYGEN DEVICE NASAL CANNULA; STAT NO; ULNAR PULSE PRESENT
[2017-07-01] MEDS ORDERED: TERBUTALINE INJ 1 MG/ML AMP SQ PRN ×2 (15:00→17:00)
[2017-07-01] MEDS ORDERED: RESP: ALBUTEROL 2.5 MG/IPRATROPIUM 0.5 MG NEB (PRN) NEB (15:00)
[2017-07-01] MEDS ORDERED: PHENYLEPHRINE INJ 80 MG in DEXTROSE 5% IN WATE 500 ML INJ 492 ML IV PRN ×2 (15:00)
--- NOTE | 2017-07-01 15:44 | PD.PROCEDR ---
Procedure Note Procedure Procedure: Arterial Line Placement Left radial Diagnosis: Hypotension /hemodynamic instability Indications: Hypotension hemodynamic instability Consent: Emergent, unable to locate family Description of the Procedure: The left wrist was prepped and draped sterilely. 1 % lidocaine was used for local anesthesia. The pulse was located and a needle was advanced into the artery. A 20 gauge, 1.34 cm catheter was advanced into the artery using a modified Seldinger technique. The catheter was sutured to the skin and a sterile dressing was applied. The catheter was connected to a pressure transducer and an arterial waveform was noted. There were no immediate complications noted. There was minimal EBL. I personally performed the procedure. Geetha Roldan MD Jul 01, 2017 15:44
--- NOTE | 2017-07-01 15:48 | PD.PROCEDR ---
Central Line Procedure REASON FOR PROCEDURE Central venous access PROCEDURE PERFORMED Central line placement: Left subclavian CONSENT Informed consent for procedure was not obtained, unable to contact daughterSAVANNAH. Informed consent was obtained from the patient at bedside in the presence of 2 RN's safety sitter Veronica Back, and Donavon Arnold The risks and benefits of the procedure were discussed to include but limited to bleeding, clot formation, infection, and even . ANESTHESIA Local injection of 1% Lidocaine DESCRIPTION OF THE PROCEDURE The patient was placed in supine, mild Trendelenburg position. The area was exposed and cleansed with ChloraPrep, times two. Large sterile drape was used to cover the patient, with the site exposed, under sterile conditions including cap, face mask, sterile gown, and sterile gloves. On single attempt, the introducer needle was inserted with negative pressure in syringe and venous flash was obtained. The guide wire was then advanced without any restriction and the needle was removed. The dilator was used without any complications. Using Seldinger technique the 7Fcatheter was advanced over the guide wire to a depth of 19 centimeters. The guide wire was removed. All ports were aspirated with dark venous blood return and flushed easily with sterile saline. All ports were capped. Antibiotic disc was placed around central line at puncture site. The central line was secured to the skin with two interrupted 2.0 silk sutures. The area was bandaged with sterile see-through central line bandage. RADIOLOGICAL DATA Ultrasound guidance was not utilized for left subclavian COMPLICATIONS: No apparent complications ESTIMATED BLOOD LOSS: Less than 1 cc. Geetha Roldan MD Jul 01, 2017 15:47
--- NOTE | 2017-07-01 15:52 | MB ---
cc: SHEEBA MOSLEY MD DATE OF CONSULTATION 07/01/[address] Tello REASONS Sepsis and hyponatremia. HISTORY OF PRESENT ILLNESS He is a 72-year-old white female who was admitted to the hospital on 06/22 because of abnormal labs and altered mental status. The patient had reportedly low blood glucose and she was given D10 IV fluids. The patient was admitted from a [facility] and the temperature was low at 94.6. Her white blood cell count was elevated 17.2. She also was noted to have diarrhea and acute kidney injury. She was previously worked up for diarrhea and was said to have collagenous colitis. She has been followed by the GI service. CT scan of the abdomen on June 22 showed significant distension of the gallbladder without significant biliary ductal dictation. The patient also has had loose stools. The workup for loose stools was unremarkable previously. This included C-difficile toxin which was negative on two occasions since admission. The patient has hypothermia. The temperature that dropped to 92.9 yesterday and then again today it was very low and she is currently on a warming blanket. She is awake but appears very lethargic and is not responding to questions asked. The white count increased to 30.8 from 18.9 yesterday. Urine culture is pending. It shows immature growth. The urinalysis showed many bacteria and 75 white cells. Blood cultures have no growth in one day. The patient underwent ERCP yesterday. The gallbladder was noted to be mildly distended. PAST MEDICAL HISTORY 1. Hypertension. 2. Coronary artery disease. 3. Questionable lupus. PAST SURGICAL HISTORY 1. Hysterectomy. 2. Appendectomy. 3. Tonsillectomy. 4. Coronary stent. ALLERGIES DIATRIZOATE MEGLUMINE. GADOBENIC ACID. GADODIAMIDE. GADOTERIDOL. IODIXANOL. IOHEXOL. MEDICATIONS 1. Cefepime. 2. Piperacillin tazobactam. 3. Vancomycin. 4. Fluconazole. 5. Plavix. 6. Metronidazole. 7. Deltasone. 8. Pravachol. 9. Aspirin. 10. Lactinex. 11. Sulfasalazine. 12. Synthroid. 13. Questran. 14. Morphine. SOCIAL HISTORY The patient smokes a pack of cigarettes a day. No alcohol. No illicit drugs. FAMILY HISTORY Noncontributory. REVIEW OF SYSTEMS Unable to obtain. PHYSICAL EXAMINATION GENERAL: This is a frail, elderly female who is in no acute distress but appears very lethargic. VITAL SIGNS: Temperature 93, BP 81/45, heart rate 80. HEENT: The head is atraumatic. Extraocular movements grossly intact. Pupils reactive to light. No icterus. Oropharynx - dry mucosa. NECK: No adenopathy or swelling. LUNGS: Decreased breath sounds throughout. HEART: Regular S1 and S2 with distant S1 and S2 sounds. ABDOMEN: Bowel sounds present but markedly diminished, soft, unable to appreciate tenderness. RECTAL: Not performed. EXTREMITIES: No clubbing or cyanosis or edema. Ecchymosis at the lower and upper extremities. SKIN: No diffuse rash. NEURO: No gross focal findings. PSYCHIATRIC: Unable to assess. LABORATORY DATA WBC 30.8, platelets 365, 97% neutrophils, hemoglobin 11.2; differential includes 30% bands. Creatinine 1.80, BUN 29, sodium 139. IMPRESSION 1. Sepsis syndrome in patient with hypothermia, leukocytosis with significant left shift. Positive urine culture. Probable source is the gallbladder. The patient has distended gallbladder on radiographic studies. 2. UTI suggested by urine culture. 3. Leukocytosis secondary to sepsis, probable gallbladder. RECOMMENDATIONS 1. Continue piperacillin/tazobactam. 2. Continue cefepime but adjust the dose for renal function. 3. Continue fluconazole. 4. Continue Flagyl. 5. Continue vancomycin adjusted for the renal function. 6. Monitor blood cultures. 7. Monitor urine culture. 8. Monitor clinical response. Thank you for this consultation. I will monitor the patient's progress and make further recommendations upon followup if necessary. I agree with that he needs to have evaluation by Interventional Radiology for generalized surgery for the gallbladder which is likely the cause of the problems. Sheeba Mosley MD FD/ALETHEA /2:51 PM /3:16 PM
[2017-07-01] MEDS ORDERED: CEFEPIME INJ 1,000 MG in SODIUM CHLORIDE 0.9% INJ 100 ML IV SCH (16:00)
--- NOTE | 2017-07-01 16:10 | RADRPT ---
EXAM DATE/TIME: 07/01/2017 15:37 [facility] COMPARISON: CHEST SINGLE AP, June 22, 2017, 12:39. INDICATIONS : Central line placement. MEDICAL HISTORY : Hypercholesterolemia. Hypertension. Gastroesophageal reflux disease. Thyroid disease. Glasses. Dentur es. Renal disease. Anxiety. Skin cancer. Hepatitis. SURGICAL HISTORY : Tonsillectomy. Appendectomy. Hysterectomy. Bilateral cataract surgery. Cystectomy. ENCOUNTER: Initial ACUITY: 1 day PAIN SCORE: Non-responsive. LOCATION: Bilateral chest FINDINGS: Single AP view of the chest. Left-sided subclavian central venous catheter is in place with the tip i n the region of the distal SVC. Confluent left mid to lower lung zone opacity indicating consolidatio n along with small left pleural effusion. No evidence of pneumothorax. Patchy right lung base opacity also now seen. CONCLUSION: 1. New left subclavian central venous catheter in place with the tip in the distal SVC. No evidence o f pneumothorax. 2. Increased confluent left lung base opacity indicating consolidation along with small left pleural effusion. 3. Mild patchy right lung base opacity. Tre Aguilar MD on July 01, 2017 at 16:07 Board Certified Radiologist. This report was verified electronically.
[2017-07-01] MEDS ORDERED: NOREPINEPHRINE INJ 8 MG in SODIUM CHLOR 0.9% 250 ML INJ 246 ML IV PRN (17:00)
[2017-07-01] MEDS ORDERED: VANCOMYCIN INJ 1,000 MG in SODIUM CHLOR 0.9% 250 ML INJ 250 ML IV ONE (17:00)
[2017-07-01 17:21] LABS: FREE T3 0.73 PG/ML (2.18-3.98); FREE T4 0.76 NG/DL (0.76-1.46)
--- NOTE | 2017-07-01 17:37 | HHI.DS ---
Summary Note Time Of : 17:16 Admission Date Jun 22, 2017 at 13:59 Admitting Diagnosis renal krystyna;ure, sepsis, hypothermia, diarrhea Diagnosis at Time of : (1) Sepsis ICD Code: A41.9 - Sepsis, unspecified organism (2) Metabolic encephalopathy ICD Code: G93.41 - Metabolic encephalopathy (3) Acute kidney injury ICD Code: N17.9 - Acute kidney failure, unspecified (4) Low bicarbonate level ICD Code: E87.8 - Other disorders of electrolyte and fluid balance, not elsewhere classified (5) Hypothermia ICD Code: T68.XXXA - Hypothermia, initial encounter (6) Hypokalemia ICD Code: E87.6 - Hypokalemia (7) Septic shock ICD Code: A41.9 - Sepsis, unspecified organism; R65.21 - Severe sepsis with septic shock Procedures none Brief History 71-year-old female with a history of hypertension, CAD and a resident from a local senior care facility was brought to the ED for evaluation of worsening mentation change. Patient is unable to communicate at this time during my exam and history is obtained from ED report and chart review below: "71-year-old female presents from a senior care for initial transport of abnormal blood work. Patient had labs on the that showed a glucose of 49. The ambulance team checked in her sugar today was 58. They gave her D10 IV fluids and now her sugar is in the 100s the nursing staff states. The patient denies pain by shaking her head no but states when I ask her what is wrong. History is significantly limited. The ambulance team states they were told she had C. difficile and was refusing medication but was not given a medication list." CBC/BMP: 07/01/17 1345 07/01/17 1345 Significant Findings Laboratory Tests Test 06/29/17 11:05 06/30/17 08:59 06/30/17 11:20 06/30/17 11:25 Blood Urea Nitrogen 27 MG/DL (7-18) 28 MG/DL (7-18) Creatinine 1.90 MG/DL (0.50-1.00) 1.88 MG/DL (0.50-1.00) Random Glucose 168 MG/DL (74-106) 320 MG/DL (74-106) Calcium Level 8.2 MG/DL (8.5-10.1) 8.4 MG/DL (8.5-10.1) Potassium Level 5.3 MEQ/L (3.5-5.1) Chloride Level 119 MEQ/L (98-107) 117 MEQ/L (98-107) Carbon Dioxide Level 10.2 MEQ/L (21.0-32.0) 5.9 MEQ/L (21.0-32.0) Estimat Glomerular Filtration Rate 26 ML/MIN (>89) 26 ML/MIN (>89) White Blood Count 18.9 TH/MM3 (4.0-11.0) Hemoglobin 9.8 GM/DL (11.6-15.3) Hematocrit 33.4 % (35.0-46.0) Mean Corpuscular Hemoglobin 23.9 PG (27.0-34.0) Mean Corpuscular Hemoglobin Concent 29.4 % (32.0-36.0) Red Cell Distribution Width 26.0 % (11.6-17.2) Platelet Count 527 TH/MM3 (150-450) Mean Platelet Volume 6.8 FL (7.0-11.0) Neutrophils (%) (Auto) 86.2 % (16.0-70.0) Lymphocytes (%) (Auto) 3.9 % (9.0-44.0) Monocytes (%) (Auto) 9.8 % (0.0-8.0) Neutrophils # (Auto) 16.3 TH/MM3 (1.8-7.7) Lymphocytes # (Auto) 0.7 TH/MM3 (1.0-4.8) Monocytes # (Auto) 1.8 TH/MM3 (0-0.9) Neutrophils % (Manual) 87 % (16-70) Lymphocytes % 5 % (9-44) Neutrophils # (Manual) 17.0 TH/MM3 (1.8-7.7) Myelocytes 1 % (0-0) Nucleated Red Blood Cells 3 /100 WBC (0-0) Platelet Estimate HIGH (NORMAL) Ovalocytes 1+ (NORMAL) Total Protein 5.1 GM/DL (6.4-8.2) Albumin 2.2 GM/DL (3.4-5.0) Aspartate Amino Transf (AST/SGOT) 14 U/L (15-37) Lactate Dehydrogenase 252 U/L (84-246) Sodium Level 135 MEQ/L (136-145) Test 06/30/17 12:35 06/30/17 17:45 07/01/17 11:51 07/01/17 13:45 Lactic Acid Level 2.7 mmol/L (0.4-2.0) 3.4 mmol/L (0.4-2.0) Urine Turbidity HAZY (CLEAR) Urine Protein 30 mg/dL (NEG-TRACE) Urine Occult Blood SMALL (NEG) Urine Leukocyte Esterase LARGE (NEG) Urine RBC 67 /hpf (0-3) Urine WBC 75 /hpf (0-5) Urine Bacteria MANY /hpf (NONE) Urine Mucus FEW /lpf (OCC) Urine Yeast (Budding) MANY (NONE) White Blood Count 30.8 TH/MM3 (4.0-11.0) Hemoglobin 11.2 GM/DL (11.6-15.3) Mean Corpuscular Hemoglobin 24.4 PG (27.0-34.0) Mean Corpuscular Hemoglobin Concent 30.3 % (32.0-36.0) Red Cell Distribution Width 25.6 % (11.6-17.2) Neutrophils (%) (Auto) 92.9 % (16.0-70.0) Lymphocytes (%) (Auto) 3.2 % (9.0-44.0) Neutrophils # (Auto) 28.6 TH/MM3 (1.8-7.7) Monocytes # (Auto) 1.0 TH/MM3 (0-0.9) Band Neutrophils % 30 % (0-6) Lymphocytes % 2 % (9-44) Neutrophils # (Manual) 29.6 TH/MM3 (1.8-7.7) Metamyelocytes 3 % (0-1) Myelocytes 3 % (0-0) Nucleated Red Blood Cells 2 /100 WBC (0-0) Ovalocytes 2+ (NORMAL) Blood Urea Nitrogen 29 MG/DL (7-18) Creatinine 1.80 MG/DL (0.50-1.00) Calcium Level 8.4 MG/DL (8.5-10.1) Chloride Level 121 MEQ/L (98-107) Carbon Dioxide Level 6.3 MEQ/L (21.0-32.0) Estimat Glomerular Filtration Rate 28 ML/MIN (>89) Troponin I 0.48 NG/ML (0.02-0.05) Free Triiodothyronine (T3) pg/dL 0.73 PG/ML (2.18-3.98) Test 07/01/17 14:30 Blood Gas HCO3 8 mmol/L (22-26) Blood Gas Base Excess -17.5 mmol/L (-2-2) Blood Gas Oxygen Saturation 89 % (90-100) Arterial Blood pH 7.28 (7.380-7.420) Arterial Blood Partial Pressure CO2 18 mmHg (38-42) Arterial Blood Partial Pressure O2 60 mmHg (61-120) Arterial Blood Oxygen Content 11.4 Vol % (12.0-20.0) Blood Gas Hemoglobin 9.1 G/DL (12.0-16.0) Imaging Last Impressions Cholangiopancreatography MRI 06/30/17 0000 Signed Impressions: Service Date/Time: Friday, June 30, 2017 15:10 - CONCLUSION: 1. Images are quite degraded do to motion artifact. Much of the biliary system is obscured by artifact. 2. No gross biliary ductal dilatation. 3. Bilateral pleural effusions left greater than right. 4. Gallbladder is mildly distended but otherwise within normal limits. 5. T11 lower thoracic vertebral body compression fracture noted. 6. Atrophic left kidney. Tre Aguilar MD Gall Bladder Ultrasound 06/23/17 0000 Signed Impressions: Service Date/Time: Friday, June 23, 2017 14:13 - CONCLUSION: Gallbladder is quite distended. A small right pleural effusion. Pacheco Che MD Head CT 06/22/17 1152 Signed Impressions: Service Date/Time: Thursday, June 22, 2017 13:03 - CONCLUSION: 1. Senescent changes without acute intracranial abnormality. Clinton Walter MD Chest X-Ray 06/22/17 1152 Signed Impressions: Service Date/Time: Thursday, June 22, 2017 12:39 - CONCLUSION: 1. Platelike bilateral lower lung zone airspace disease consistent with atelectasis. Clinton Walter MD Abdomen/Pelvis CT 06/22/17 0000 Signed Impressions: Service Date/Time: Thursday, June 22, 2017 14:44 - CONCLUSION: 1. Diffusely fluid-filled slightly prominent colon without significant colonic wall thickening. Although nonspecific, findings likely reflect enteritis. Although less likely, very early infectious colitis cannot be excluded. 2. Significantly distended gallbladder without significant biliary ductal dilatation. This may be due to prolonged fasting. Clinical correlation is recommended. Consider ultrasound examination if there is significant continued clinical concern. 3. Mild patchy airspace disease at the left lung base, presumably atelectasis. 4. Very minimal trace bilateral pleural effusions. Clinton Walter MD Hospital Course This is a 72-year-old female that was recently admitted on June 22, 2017 from a senior care with a diagnosis of altered mental status secondary to presumed sepsis from multiple urinary tract infections. Imaging studies revealed significantly dilated gallbladder without ductal dilatation, urine culture suggestive of UTI. The patient has a history of multiple UTIs. C. difficile was negative, urine cultures pending. The patient was placed on Zosyn initially and today placed on cefepime and Diflucan. The patient has had a sodium bicarbonate infusion and continues to have hypocarbia. The patient is alert to name and place. During this hospitalization the patient was seen by palliative care medicine and has made herself DNI/DNR. Infectious disease has been consulted today. Critical care medicine has been consulted regarding the hypocarbia and sepsis. She was admitted to ICU hypotensive, with a bicarbonate level of 8. Increased concentration of sodium bicarbonate infusion was provided patient was bolused with normal saline 500 cc 2. A left subclavian central line was placed a left radial arterial line was placed, emergently. The patient was placed on phenylephrine and norepinephrine and vasopressin was ordered. Able to contact daughter SAVANNAH the sister was notified that the patient was admitted to ICU and updated on medical stafus. The patient subsequently continued to deteriorate on maximum doses of pressors and multiple IV push sodium bicarbonate. The sister was contacted and advised of the situation, and she reiterated the patient is a DNI DNR. The patient at 1716. Geetha Roldan MD Jul 01, 2017 17:37
[2017-07-02] MEDS ORDERED: SODIUM BICARBONATE 8.4% INJ 150 MEQ in SODIUM CHLOR 0.9% 1000 ML INJ 850 ML IV SCH (13:00)
== END 2017-07-01 17:16 | disposition expired | DRG 871 ==
LOC: NEPC 11:29 → NEDA 13:59 → N04A 16:02 → HIMN 06-23 17:55 → N07A 06-27 01:56 → HIME 07-01 13:10
PROVIDERS: ADMIT Hospitalist; ATTEND Hospitalist
PROC: 03HY32Z Insertion of Monitoring Device into Upper Artery, Percutaneous Approach (ICD-10-PCS; principal; 2017-07-01)
PROC: 4A133B1 Monitoring of Arterial Pressure, Peripheral, Percutaneous Approach (ICD-10-PCS; 2017-07-01)
PROC: 4A133J1 Monitoring of Arterial Pulse, Peripheral, Percutaneous Approach (ICD-10-PCS; 2017-07-01)
PROC: 05H633Z Insertion of Infusion Device into Left Subclavian Vein, Percutaneous Approach (ICD-10-PCS; 2017-07-01)
DX: A41.9 Sepsis, unspecified organism (principal); N17.0 Acute kidney failure with tubular necrosis; R65.21 Severe sepsis with septic shock; G93.41 Metabolic encephalopathy; B37.49 Other urogenital candidiasis; J90 Pleural effusion, not elsewhere classified; E46 Unspecified protein-calorie malnutrition; E87.2 Acidosis; B19.10 Unspecified viral hepatitis B without hepatic coma; E87.1 Hypo-osmolality and hyponatremia; T68.XXXA Hypothermia, initial encounter; M48.02 Spinal stenosis, cervical region; I25.10 Atherosclerotic heart disease of native coronary artery without angina pectoris; E87.6 Hypokalemia; E03.9 Hypothyroidism, unspecified; E78.5 Hyperlipidemia, unspecified; E86.0 Dehydration; I10 Essential (primary) hypertension; K52.831 Collagenous colitis; F17.210 Nicotine dependence, cigarettes, uncomplicated; F32.9 Major depressive disorder, single episode, unspecified; F41.9 Anxiety disorder, unspecified; Z86.73 Personal history of transient ischemic attack (TIA), and cerebral infarction without residual deficits; M51.36 Other intervertebral disc degeneration, lumbar region; K21.9 Gastro-esophageal reflux disease without esophagitis; M79.7 Fibromyalgia; F10.21 Alcohol dependence, in remission; E16.2 Hypoglycemia, unspecified; K82.8 Other specified diseases of gallbladder; Z51.5 Encounter for palliative care; Z66 Do not resuscitate; R13.10 Dysphagia, unspecified; Z90.710 Acquired absence of both cervix and uterus; D50.9 Iron deficiency anemia, unspecified; R06.89 Other abnormalities of breathing; R73.9 Hyperglycemia, unspecified; Z95.5 Presence of coronary angioplasty implant and graft; Z85.828 Personal history of other malignant neoplasm of skin; Z87.440 Personal history of urinary (tract) infections; Z82.49 Family history of ischemic heart disease and other diseases of the circulatory system; Z84.1 Family history of disorders of kidney and ureter; Z84.89 Family history of other specified conditions; Z74.01 Bed confinement status
CPT/HCPCS: 36556; 36600; 70450; 71010; 74176; 74181; 76377; 76705; 76937; 80048; 80053; 81001; 82438; 82550; 82805; 82948; 83036; 83605; 83615; 83735; 83935; 84100; 84133; 84300; 84302; 84439; 84443; 84481; 84484; 84999; 85007; 85025; 85027; 85610; 85730; 87040; 87086; 87102; 87106; 87205; 87206; 87328; 87329; 87493; 87506; 93005; 96361; 96365; J0692; J0744; J1450; J1644; J1815; J2270; J2370; J2405; J2543; J3370; J3480; J7030; J7050; J7060; J7512; P9612